=== PATIENT | female | born 1935 | race Caucasian/White ===

== ENCOUNTER 2017-09-15 13:59 | Inpatient (IN) | payer MEDICARE ==
[2017-09-15 16:32] VITALS: BMI 25.5
[2017-09-15] MEDS ORDERED: Senokot 8.6 MG TAB PO PRN (17:20)
[2017-09-15] MEDS ORDERED: Dextrose 5% in Water 1,000 ML IV PRN (17:20)
[2017-09-15] MEDS ORDERED: Insulin Regular 300 UNITS/3 ML VIAL SC PRN (17:20)
[2017-09-15] MEDS ORDERED: Ondansetron ODT 4 MG TAB PO PRN (17:20)
[2017-09-15] MEDS ORDERED: Dextrose 50% Abboject 50 ML SYRINGE SLOW IVP PRN (17:20)
[2017-09-15] MEDS ORDERED: Acetaminophen 325 MG TAB PO PRN (17:20)
[2017-09-15] MEDS ORDERED: Nitroglycerin 0.4 MG TAB (25 Tab Bottle) PO PRN (17:23)
[2017-09-15 17:50] LABS: #Lymphocytes 1.1 thou/uL (1.20-3.40); #Neutrophils 9.4 thou/uL (1.40-6.50); %Eosinophils 0.4 % (0.0-10.0); %Lymphocytes 9.2 % (21.0-51.0); %Monocytes 8.9 % (0.0-10.0); %Neutrophils 81.5 % (42.0-75.0); Mean Corpuscular HGB CONC 32.3 g/dL (32.0-36.0); Mean Corpuscular Hemoglobin 29.2 pg (27.0-31.0); Mean Corpuscular Volume 90.4 fl (81.0-99.0); Mean Platelet Volume 7.4 fL (7.4-10.4); Platelet Count 285 thou/uL (130-400); RBC Distribution Width 13.1 % (11.5-14.5); Red Blood Cell (RBC) Count 3.09 mill/uL (4.20-5.40); White Blood Cell (WBC) Count 11.5 thou/uL (4.8-10.8)
[2017-09-15] MEDS: Sodium Chloride 0.9% 1,000 ML IV SCH (17:50)
[2017-09-15] MEDS: Insulin Regular 300 UNITS/3 ML VIAL SC PRN (17:52)
[2017-09-15 18:01] LABS: INR-International Normal Ratio 1.1; PTT 28.5 SEC (22.9-36.1); Prothrombin Time 14.2 SEC (12.0-14.7)
[2017-09-15] MEDS ORDERED: hydrALAZINE 20 MG/ML VIAL SLOW IVP PRN (18:06)
[2017-09-15] MEDS ORDERED: HYDROcodone/Acetaminophen 5/325 mg Tablet PO PRN (18:06)
--- NOTE | 2017-09-15 18:13 | HP ---
DATE OF ADMISSION: 09/15/2017 PRIMARY CARE PHYSICIAN: Ml Gordon M.D. CODE STATUS: FULL CODE. SURROGATE DECISION-MAKER: Patient makes her own decisions with the help of daughters. CHIEF COMPLAINT AND REASON FOR ADMISSION: The patient is a transfer from [facility] Emergency Room for sepsis, persistent fever with on and off confusion. HISTORY OF PRESENT ILLNESS: The patient is an 82-year-old female with diabetes mellitus type 2, coronary artery disease who presented to [facility] 3 weeks ago with generalized weakness with nausea and diarrhea. Her workup was consistent with gastroenteritis along with Escherichia coli urinary tract infection. She completed the antibiotics. She was then transferred to [facility] [facility] on 08/28/2017. Blood cultures were negative at that time. Influenza screen was negative. At the [facility] [place] [facility], patient developed intermittent confusion that is progressively getting worse. Yesterday, she was confused, more or less the whole day. She also has been having fever especially at night. She has been also complaining of left shoulder pain and back pain. She is currently on Bactrim for left upper extremity cellulitis. No recent cough, shortness of breath, wheezing, nausea, vomiting, or focal neurologic deficits reported. Her CT scan of the brain was done yesterday which was negative for acute findings. CT scan of the chest without contrast showed extensive fibrotic changes throughout the lung, worse in the lung base, most likely chronic in nature without any focal pneumonia. PAST MEDICAL HISTORY: 1. Diabetes mellitus type 2. 2. Coronary artery disease, status post stent placement. 3. Sinus node dysfunction status post pacemaker placement. 4. Hypothyroidism. 5. Hyperlipidemia. 6. Hypertension. 7. Degenerative joint disease. 8. Chronic low back pain. 9. Recurrent falls. 10. Dementia. 11. Chronic pain syndrome. PAST SURGICAL HISTORY: 1. Extensive back surgery in 03/2017 at [facility] [place]. She had surgery from T7 and T11, L1 and L2. She remained in the rehabilitation for a month after the surgery. 2. Thyroidectomy. 3. Hysterectomy. 4. Right knee replacement. 5. Left knee replacement. 6. 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 7. Cholecystectomy. ALLERGIES: Patient is allergic to LEVAQUIN and PENICILLIN. CURRENT HOME MEDICATIONS: Tylenol as needed, aspirin 81 mg daily, Lipitor 10 mg at bedtime, Dulcolax 5 mg at bedtime, carvedilol 12.5 mg b.i.d., vitamin D 5000 units daily, vitamin B12 1000 mcg daily, Aricept 10 mg at bedtime, folic acid 1000 mg at bedtime, Neurontin 100 mg b.i.d., glipizide 2.5 mg daily, Guadalupe 10/325 b.i.d., levothyroxine 125 mcg daily, lisinopril 10 mg daily, melatonin 10 mg at bedtime, Protonix 40 mg daily, MiraLax 17 grams daily, tramadol as needed. SOCIAL HISTORY: The patient is currently at swing bed. She used to ambulate with the help of a walker. She has very good family support. No current use of tobacco, alcohol or drug use. FAMILY HISTORY: Negative for premature coronary artery disease. REVIEW OF SYSTEMS: The following complete review of systems was negative, unless otherwise mentioned in the HPI or below: Constitutional: Weight loss or gain, ability to conduct usual activities. Skin: Rash, itching. Eyes: Double vision, pain. ENT/Mouth: Nose bleeding, neck stiffness, pain, tenderness. Cardiovascular: Palpitations, dyspnea on exertion, orthopnea. Respiratory: Shortness of breath, wheezing, cough, hemoptysis, fever or night sweats. Gastrointestinal: Poor appetite, abdominal pain, heartburn, nausea, vomiting, constipation, or diarrhea. Genitourinary: Urgency, frequency, dysuria, nocturia. Musculoskeletal: Pain, swelling. Neurologic/Psychiatric: Anxiety, depression. Allergy/Immunologic: Skin rash, bleeding tendency. PHYSICAL EXAMINATION: VITAL SIGNS: Temperature 98.5, respiration of 18, pulse rate of 78, blood pressure 150/82, O2 saturation 95% on 2 liter nasal cannula. GENERAL: An 82-year-old female with intermittent confusion. Confusion seems to be better at this time. HEENT: Head is atraumatic, normocephalic, sclerae are anicteric. Moist mucous membranes. No oral lesion. NECK: Supple, no JVD appreciated. No carotid bruit. LUNGS: Clear to auscultation bilaterally. HEART: S1, S2 present. Regular rate and rhythm. No rubs or gallops are appreciated, 2/6 systolic murmur over the mitral area. ABDOMEN: Soft, nontender, bowel sounds present, no rebound, guarding, or costovertebral angle tenderness. EXTREMITIES: No edema or calf tenderness. NEUROLOGIC: Grossly nonfocal, moves all four extremities. PSYCHIATRY: Alert, awake, oriented x3. SKIN: Warm and dry. LYMPH NODES: No palpable lymph nodes in the neck. PERIPHERAL VASCULAR: Radial pulses palpable bilaterally. MUSCULOSKELETAL: No joint swelling or tenderness. LABORATORY DATA AND IMAGING DATA: 1. Labs from today are pending at this time. WBC was 12.8 last week. Repeat WBC yesterday was 7.9. 2. Hemoglobin and hematocrit was 12.3. 3. Sodium was 131, potassium 4.6, chloride 95, bicarbonate 24, BUN 24, creatinine 1.4. Her creatinine baseline is 1.0. Urinalysis last week was negative. Urine culture last week was negative. 4. Telemetry monitoring by my review showed sinus rhythm. CT scan of the brain as discussed above. CT scan of the chest by my review as discussed above. X-ray of the left wrist showed chronic changes. IMPRESSION: 1. Generalized weakness/Toxic metabolic encephalopathy, multifactorial. 2. Persistent fever, especially at night, rule out bacteremia. 3. Chronic pain syndrome, especially in the left shoulder and back. r/o infectious process 4. Left wrist cellulitis, currently on Bactrim. 5. Status post spine surgery in [place]. Patient probably had laminectomy from T7-T11 and L1-L2 per patient report. 6. Coronary artery disease, status post stent placement. 7. Diabetes mellitus type 2. 8. Sinus node dysfunction status post pacemaker. 9. Hypothyroidism. 10. Hypertension. 11. Hyperlipidemia. 12. Degenerative joint disease. 13. Acute kidney injury on chronic kidney disease stage 3. 14. Hyponatremia with sodium of 131. 15. Dementia. 16. Recurrent falls. Patient has probably 6-7 falls in the last 6 months per family report. PLAN: The patient will be monitored in the Stroke Unit. Neurology and Infectious Disease will be consulted. We will repeat blood cultures, urinalysis and urine cultures. Check CRP and electrolytes again. Frequent neuro checks. Gentle intravenous hydration. Insulin sliding scale. Hold antibiotics for now except for Bactrim for left wrist cellulitis. We will also resume other selected home medications. Plan of care was discussed with the patient and the family at the bedside. They stated understanding. MTDD
[2017-09-15 18:23] LABS: ALT (SGPT) 12 U/L (8-55); AST (SGOT) 12 U/L (5-34); Albumin 3.6 g/dL (3.4-4.8); Alkaline Phosphatase 89 U/L (40-150); Anion Gap 15 mmol/L (10-20); BUN (Urea Nitrogen) 21 mg/dL (9.8-20.1); Bilirubin, Total 0.2 mg/dL (0.2-1.2); CK (CPK) 28 U/L (29-168); CRP (Inflammatory) 22.77 mg/dL (= or < 0.5); Calc. Creatinine Clearance 34 mL/min (70-130); Calcium 9.4 mg/dL (7.8-10.44); Carbon Dioxide 20 mmol/L (23-31); Chloride 99 mmol/L (98-107); Estimated GFR-MDRD 35; Globulin 3.6 g/dL (2.4-3.5); Glucose 306 mg/dL (83-110); Magnesium 2.4 mg/dL (1.6-2.6); Phosphorus 2.9 mg/dL (2.3-4.7); Potassium 4.8 mmol/L (3.5-5.1); Protein, Total 7.2 g/dL (6.0-8.3); Sodium 129 mmol/L (136-145)
[2017-09-15 18:26] LABS: CKMB 0.5 ng/mL (0-6.6); Troponin I Less than 0.010 ng/mL (< 0.028)
[2017-09-15 19:53] LABS: Folate (Folic Acid) 39.4 ng/mL (7.0-31.4)
[2017-09-15 20:14] LABS: Bilirubin Negative (Negative); Blood, Urine Negative (Negative); Clarity CLOUDY (Clear); Glucose, Urine (Dipstick) 250 mg/dL (Negative); Leukocyte Negative (Negative); Nitrite Negative (Negative); Protein, Urine (Dipstick) Negative (Neg-Trace); Specific Gravity, Urine 1.021 (1.002-1.036); Urobilinogen 0.2 mg/dL (0.2-1.0); pH, Urine 5.5 (5.0-9.0)
[2017-09-15 20:17] LABS: Bacteria/HPF None Seen HPF (None Seen); Hyaline Casts/LPF 0-3 HYALINE CAST LPF (0-3 Hyaline); Pathc Cast-AUWi Flag 0.94 (0-2.49); RBC/HPF 0-3 HPF (0-3); WBC/HPF None Seen HPF (0-3)
[2017-09-15] MEDS ORDERED: Famotidine 20 MG TAB PO SCH (21:00)
[2017-09-15] MEDS: Donepezil HCl 10 MG TAB PO SCH (21:21)
[2017-09-15] MEDS: Sulfameth/Trimethoprim DS 800-160mg TAB PO SCH (21:21)
[2017-09-15] MEDS: traMADol HCl 50 MG TAB PO PRN (21:21)
[2017-09-15] MEDS: Carvedilol 6.25 MG TAB PO SCH (21:23)
[2017-09-15] MEDS: Gabapentin 100 MG CAP PO SCH (21:24)
[2017-09-15] MEDS: Melatonin 3 MG TAB PO SCH (21:24)
[2017-09-15] MEDS: Atorvastatin Calcium 10 MG TAB PO SCH (21:24)
[2017-09-15] MEDS: Docusate 100 MG CAP PO SCH (21:24)
[2017-09-16] MEDS: Levothyroxine Sodium 125 MCG TAB PO SCH (05:37)
[2017-09-16 06:05] LABS: Anion Gap 12 mmol/L (10-20); BUN (Urea Nitrogen) 29 mg/dL (9.8-20.1); Calc. Creatinine Clearance 34 mL/min (70-130); Calcium 8.8 mg/dL (7.8-10.44); Carbon Dioxide 24 mmol/L (23-31); Chloride 102 mmol/L (98-107); Estimated GFR-MDRD 35; Glucose 182 mg/dL (83-110); Potassium 4.3 mmol/L (3.5-5.1); Sodium 134 mmol/L (136-145)
[2017-09-16] MEDS: Insulin Regular 300 UNITS/3 ML VIAL SC PRN (06:42)
[2017-09-16] MEDS ORDERED: Enoxaparin Sodium 40 MG/0.4 ML SYRINGE SC SCH (09:00)
[2017-09-16] MEDS: Carvedilol 6.25 MG TAB PO SCH ×2 (09:04→20:53)
[2017-09-16] MEDS: Gabapentin 100 MG CAP PO SCH ×2 (09:04→20:52)
[2017-09-16] MEDS: Sulfameth/Trimethoprim DS 800-160mg TAB PO SCH ×2 (09:04→20:53)
[2017-09-16] MEDS: Folic Acid 1 MG TAB PO SCH (09:04)
[2017-09-16] MEDS: Docusate 100 MG CAP PO SCH ×2 (09:04→20:52)
[2017-09-16] MEDS: Aspirin 81 mg Enteric Coated Tablet PO SCH (09:04)
[2017-09-16] MEDS: Cyanocobalamin (Vitamin B-12) 1,000 MCG TAB PO SCH (09:05)
[2017-09-16] MEDS: Polyethylene Glycol 3350 17 GM Packet PO SCH (09:05)
[2017-09-16] MEDS: glipiZIDE 5 MG TAB PO SCH (09:05)
[2017-09-16] MEDS: traMADol HCl 50 MG TAB PO PRN (09:08)
--- NOTE | 2017-09-16 12:03 | ULT ---
BILATERAL LOWER EXTREMITY VENOUS DUPLEX SONOGRAM: History: Bilateral leg pain and edema. FINDINGS: Each common femoral vein and greater saphenous junction were evaluated along with each femoral, deep femoral, popliteal, and posterior tibial vein. There is good color and spectral doppler flow, yessy kole, and augmentation. IMPRESSION: No sonographic evidence of DVT within either lower extremity. POS: MICHI
--- NOTE | 2017-09-16 13:23 | PDOC.PN ---
- Subjective Encounter Start Date: 09/16/17 Encounter Start Time: 12:30 Patient seen and examined. No new complaints. No overnight events. Mentation improving. low back pain + - Objective Resuscitation Status: Resuscitation Status FULL:Full Resuscitation MAR Reviewed: Yes Vital Signs & Weight: Vital Signs (12 hours) Temp Pulse Pulse Pulse Resp BP BP 09/16/17 11:16 98.7 F 75 16 09/16/17 09:25 70 75 133/68 09/16/17 09:04 127/66 09/16/17 08:31 88 72 117/69 09/16/17 08:12 97.8 F 75 20 09/16/17 07:34 97.8 F 75 20 09/16/17 03:41 97.6 F 75 20 BP BP Pulse Ox 09/16/17 11:16 124/72 93 L 09/16/17 09:25 120/60 09/16/17 09:04 09/16/17 08:31 111/59 L 09/16/17 08:12 94 L 09/16/17 07:34 147/74 H 94 L 09/16/17 03:41 110/58 L 95 Weight Weight 159 lb 3.2 oz I&O: 09/15/17 09/16/17 09/17/17 06:59 06:59 06:59 Intake Total 300 Balance 300 Result Diagrams: 09/15/17 17:13 09/16/17 05:10 Additional Labs: Accuchecks 09/16/17 09/16/17 09/15/17 10:43 06:35 21:10 POC Glucose 173 H 160 H 279 H 09/15/17 17:21 POC Glucose 291 H EKG Reviewed by me: Yes (Tele paced) Phys Exam - Physical Examination Constitutional: NAD Respiratory: no wheezing, no rales Scat rhonchi at bases Cardiovascular: RRR, no rub no heaves/pulsations Gastrointestinal: soft, non-tender, no distention, positive bowel sounds Musculoskeletal: no edema Neurological: non-focal, moves all 4 limbs Psychiatric: normal affect, A&O x 3 Dx/Plan - Plan DVT proph w/SCDs IMPRESSION: 1. Generalized weakness/Toxic metabolic encephalopathy, multifactorial. 2. Persistent fever, especially at night, rule out bacteremia. 3. Chronic pain syndrome, especially in the left shoulder and back. r/o infectious process 4. Left wrist cellulitis, currently on Bactrim. 5. Status post spine surgery in [place]. Patient probably had laminectomy from T7-T11 and L1-L2 per patient report. 6. Coronary artery disease, status post stent placement. 7. Diabetes mellitus type 2. 8. Sinus node dysfunction status post pacemaker. 9. Hypothyroidism. 10. Hypertension. 11. Hyperlipidemia. 12. Degenerative joint disease. 13. Acute kidney injury on chronic kidney disease stage 3. 14. Hyponatremia with sodium of 131. 15. Dementia. 16. Recurrent falls. Patient has probably 6-7 falls in the last 6 months per family report. PLAN: * Blood cultures neg * Doppler neg for DVT * C diff nega * Await ID/NSG input * AM labs * Cont IVF at 50 ml/hr due to NEENA * Cont to monitor * Cont Bactrim Review of Systems - Review of Systems Cardiovascular: negative: chest pain, palpitations, orthopnea, paroxysmal nocturnal dyspnea, edema, light headedness Gastrointestinal: negative: Nausea, Vomiting, Abdominal Pain, Diarrhea, Constipation, Melena, Hematochezia - Medications/Allergies Allergies/Adverse Reactions: Allergies Allergy/AdvReac Type Severity Reaction Status Date / Time levofloxacin [From Levaquin] Allergy Rash Verified 08/28/17 13:21 Penicillins Allergy Rash Verified 08/28/17 13:21 Medications: Current Medications Acetaminophen (Tylenol) 650 mg PO Q4H PRN PRN Reason: Headache/Fever or Pain Hydrocodone Bitart/Acetaminophen (Hoople 10/325) 1 tab PO Q6H PRN PRN Reason: Moderate Pain (4-6) Aspirin (Ecotrin) 81 mg PO DAILY [facility] Last Admin: 09/16/17 09:04 Dose: 81 mg Atorvastatin Calcium (Lipitor) 10 mg PO HS [facility] Last Admin: 09/15/17 21:24 Dose: 10 mg Carvedilol (Coreg) 12.5 mg PO BID [facility] Last Admin: 09/16/17 09:04 Dose: 12.5 mg Cyanocobalamin (Vitamin B-12) 1,000 mcg PO DAILY [facility] Last Admin: 09/16/17 09:05 Dose: 1,000 mcg Dextrose/Water (Dextrose 50%) 25 gm SLOW IVP PRN PRN PRN Reason: Hypoglycemia Docusate Sodium (Colace) 100 mg PO BID [facility] Last Admin: 09/16/17 09:04 Dose: 100 mg Donepezil HCl (Aricept) 10 mg PO [facility] Last Admin: 09/15/17 21:21 Dose: 10 mg Enoxaparin Sodium (Lovenox) 30 mg SC 0900 [facility] Folic Acid (Folvite) 1 mg PO DAILY [facility] Last Admin: 09/16/17 09:04 Dose: 1 mg Gabapentin (Neurontin) 100 mg PO BID [facility] Last Admin: 09/16/17 09:04 Dose: 100 mg Glipizide (Glucotrol) 2.5 mg PO DAILY [facility] Last Admin: 09/16/17 09:05 Dose: 2.5 mg Glucagon (Glucagon) 1 mg IM PRN PRN PRN Reason: Hypoglycemia Hydralazine HCl (Apresoline) 10 mg SLOW IVP Q4H PRN PRN Reason: SBP Greater Than 180 Dextrose/Water (D5w) 1,000 mls @ 0 mls/hr IV .Q0M PRN; As Directed PRN Reason: Hypoglycemia Sodium Chloride (Normal Saline 0.9%) 1,000 mls @ 50 mls/hr IV .Q20H [facility] Last Admin: 09/15/17 17:50 Dose: 1,000 mls Insulin Human Regular (Humulin R) 0 units SC .MILD SLIDING SCALE PRN PRN Reason: Mild Correctional Scale Last Admin: 09/16/17 06:42 Dose: 2 unit Insulin Human Regular (Humulin R) 0 units SC .BEDTIME SLIDING SC PRN PRN Reason: Bedtime Correctional Scale Last Admin: 09/15/17 23:04 Dose: 3 unit Levothyroxine Sodium (Synthroid) 125 mcg PO 0600 [facility] Last Admin: 09/16/17 05:37 Dose: 125 mcg Melatonin (Melatonin) 9 mg PO [facility] Last Admin: 09/15/17 21:24 Dose: 9 mg Miscellaneous Medication (Pharmacy To Dose) 1 each PO ONE PRN PRN Reason: Pharmacy to dose Stop: 10/15/17 17:30 Nitroglycerin (Nitrostat) 0.4 mg PO Q5MIN PRN PRN Reason: Chest Pain Ondansetron HCl (Zofran Odt) 4 mg PO Q6H PRN PRN Reason: Nausea/Vomiting Pantoprazole Sodium (Protonix) 40 mg PO 2100 [facility] Polyethylene Glycol (Miralax) 17 gm PO DAILY [facility] Last Admin: 09/16/17 09:05 Dose: Not Given Senna (Senokot) 2 tab PO HSPRN PRN PRN Reason: Constipation Tramadol HCl (Ultram) 50 mg PO QID PRN PRN Reason: Pain Last Admin: 09/16/17 09:08 Dose: 50 mg Trimethoprim/Sulfamethoxazole (Bactrim Ds) 1 tab PO BID [facility] Last Admin: 09/16/17 09:04 Dose: 1 tab
[2017-09-16] MEDS: Sodium Chloride 0.9% 1,000 ML IV SCH (19:08)
--- NOTE | 2017-09-16 20:36 | CT ---
NONCONTRAST CT LUMBAR SPINE 09/16/17 HISTORY: Mid as well as low back pain. Bilateral lower extremity weakness and frequent falls. COMPARISON: Not available. TECHNIQUE: Contiguous axial CT images are obtained from the T10-11 level to the upper sacrum. Sagittal and coron al reformat images are provided. FINDINGS: There are increased linear densities at each lung base incompletely imaged but probably related to ch ronic lung changes better visualized on CT thorax on 09/14/17. Vascular calcifications are seen in the abdominal aorta and involving the iliac arteries. There is bi lateral sacroiliac joint osteoarthritis. Postsurgical changes of the thoracolumbar spine are noted. Laminectomy defects are present at the vis ualized T10-11 level, L1-2 level, L2-3, L3-4, and L4-5 levels. Vacuum phenomenon is seen at all levels of the lower thoracic and lumbar spine with narrowing of the intervertebral disc spaces at all levels. Multilevel posterior osteophyte formation as well as facet hypertrophic changes are present. T10-11 level: There is moderate right with mild to moderate left sided neural foraminal narrowing vinny sophie related to the uncinate process hypertrophy and facet degenerative changes. Soft tissue densit ies seen posterior to the central spinal canal at this level likely related to scarring from prior s urgery. T11-12 level: There is mild right sided neural foraminal narrowing due to bony encroachment. The left neural foramen is patent. There is mild effacement of the ventral subarachnoid space due to a mild d isc osteophyte complex. T12-L1 level: There is severe right and moderate left sided neural foraminal narrowing, again related to bony encroachment, primarily the posterior osteophyte formation and facet hypertrophic changes. T his also results in moderate narrowing of the central spinal canal at this level. L1-2 level: There is prominent posterior osteophyte formation with facet hypertrophic change. There i s severe right and moderate left sided neural foraminal narrowing. Soft tissue density abuts the thec al sac at this level posteriorly and the thecal sac is not well delineated on this exam. This soft ti ssue density is most likely attributable to scarring. No obvious fluid collection is seen on nonenhan archie CT scan exam. L2-3 level: There is severe facet hypertrophic changes with prominent posterior osteophyte formation. Findings result in severe narrowing of the central spinal canal at this level. There is mild to mode rate right and moderate left sided neural foraminal narrowing due to bony encroachment. Soft tissue d ensity is seen posterior to the thecal sac at this level likely related to scarring in the soft tissu es. L3-4 level: There is facet hypertrophic changes with prominent posterior osteophyte formation. There is a laminectomy defect at this level, but there is at least mild narrowing of the central spinal can al with narrowing of the lateral recesses at this level. There is severe left and moderate to severe right sided neural foraminal narrowing again related to prominent facet hypertrophic changes as well as left lateral and posterior osteophyte formation at this level. L4-5 level: There is severe right sided facet hypertrophic changes. There is a punctate focus of gas seen within the right neural foramen at this level, probably related to either a gas within a tiny se questered disc fragment. There is severe right and very severe left sided neural foraminal narrowing. Here is soft tissue density seen posterior to the L4-5 level and posterior to the L5 vertebral body in the midline may represent disc material, but this cannot be further evaluated on CT evaluation. Ce ntral spinal canal is patent at this level with mild effacement of the anterior aspect of the thecal sac. There is a calcific density seen at the posterior aspect of the thecal sac at the level of the L4 susie tebral body. Atrophy of the musculature posterior to the L3-4 and L4-5 levels is present. L5-S1 level: There are facet hypertrophic changes and posterior osteophyte formation. This results in severe bilateral neural foraminal narrowing. There is encroachment on the traversing bilateral S1 ne rve roots at this level. Thecal sac does appear patent. IMPRESSION: 1. Extensive multilevel degenerative changes. Postsurgical changes are seen at multiple levels r elated to laminectomy defects. 2. Multilevel moderate and severe degrees of neural foraminal narrowing, primarily related to dioni ny encroachment. There is soft tissue density seen in the midline posterior to the L4-5 level and pos terior to the L5 vertebral body which could potentially represent disc material. 3. No fracture or subluxation involving the lumbar spine. There is mild right convex scoliosis o f the lumbar spine. POS: MISTY
[2017-09-16] MEDS: Melatonin 3 MG TAB PO SCH (20:52)
[2017-09-16] MEDS: Atorvastatin Calcium 10 MG TAB PO SCH (20:52)
[2017-09-16] MEDS: Donepezil HCl 10 MG TAB PO SCH (20:52)
[2017-09-16] MEDS: Pantoprazole 40 MG GRANULES PACKET PO SCH (20:53)
[2017-09-16] MEDS: HYDROcodone/Acetaminophen 10/325 mg Tablet PO PRN (20:53)
--- NOTE | 2017-09-16 20:54 | CT ---
NONCONTRAST CT THORACIC SPINE 09/16/17 HISTORY: Bilateral lower extremity weakness and frequent falls. FINDINGS: Increased interstitial densities in the lungs bilaterally also seen on CT thorax of 09/14/17 and likel y related to chronic interstitial fibrotic lung changes. Vascular calcifications are seen in the thor acic and visualized abdominal aorta. A dual lead left subclavian cardiac pacemaking device is noted i n place. Small hiatal hernia is identified. There are postsurgical changes of the thoracic spine related to laminectomy defects extending from th e T7-8 to the T10-11 level. There are prominent degenerative changes seen in the thoracic spine exten ding from the T5-6 to the T12-L1 level. There is slight anterolisthesis of C6 on C7. There are prominent facet degenerative changes at this l evel likely accounting for this finding. Vertebral body heights of the thoracic spine are within norm al limits and there is no evidence of a subluxation. Multilevel end plate degenerative changes are seen with loss of intervertebral disc height at multipl e levels of the mid and lower thoracic spine. The central spinal canal and neural foramina appear patent at the T1-2, L2-3, T3-4, and T4-5 levels. T5-6 level: Central spinal canal and neural foramina are patent, but there are prominent end plate de generative changes. T6-7 level: There may be partial fusion at this level. There is prominent posterior osteophyte format ion which does result in narrowing of the central spinal canal due to the posterior osteophyte format ion. Right neural foramen is patent, but there is at least mild narrowing of the left neural foramen . T7-8 level: There is prominent posterior osteophyte formation which does efface the ventral subarachn oid space at this level. There is moderate bilateral neural foraminal due to bony encroachment. T8-9 level: There is prominent posterior osteophyte formation which does efface the ventral subarachn oid space. There is soft tissue density posterior to the central spinal canal likely related to scarr ing. Laminectomy defect is present at this level. There is severe bilateral neural foraminal narrowin g. T9-10 level: There is prominent posterior osteophyte formation with soft tissue density seen posterio r to the central spinal canal likely related to scarring. The delineation of the area of presumed sca r tissue in central spinal are difficult to delineate, but there does appear to be moderate to severe narrowing of the central spinal canal. There is severe right and moderate left sided neural foramina l narrowing. T10-11 level: There is posterior osteophyte formation and facet degenerative changes. Findings result in mild left and severe right sided neural foraminal narrowing. Again, soft tissue density seen post erior to thecal sac probably related to scarring. T11-12 level: There is facet degenerative changes on the right with posterior osteophyte formation as well as uncinate process hypertrophy. There is severe right sided neural foraminal narrowing. The le ft neural foramen at this level does appear patent. Vacuum phenomenon is seen in the intervertebral d isc. There is mild effacement of the ventral subarachnoid space. T12-L1 level: There is prominent posterior osteophyte formation and facet hypertrophic changes. The f indings result in severe bilateral neural foraminal narrowing, and there is also moderate narrowing o f the central spinal canal at this level. IMPRESSION: 1. Multilevel degenerative changes seen in the mid and lower thoracic spine as described above. Postsurgical changes also involve the lower thoracic as well as the visualized upper lumbar spine. 2. Slight anterolisthesis of C6 on C7 likely due to the facet degenerative changes. 3. Chronic interstitial lung changes. 4. Prominent vascular calcifications. 5. Hiatal hernia. POS: [facility]
--- NOTE | 2017-09-16 21:02 | CON ---
DATE OF CONSULTATION: 09/16/2017 REASON FOR CONSULTATION: Weakness, concern of possible UTI, some respiratory symptoms, a recent episode of inflammatory change in left upper extremity. HISTORY OF PRESENT ILLNESS: An 82-year-old with a history of type 2 diabetes and coronary artery disease prior with pacemaker placement as well as extensive thoracic and lumbar spine fusion with instrumentation done in [place] in 03/2017 , who has suffered from worsening functional capacity for the past few weeks. Some respiratory symptoms earlier with some low-grade temperature elevation intermittently reported. The patient was admitted to [facility], had urinary tract infection secondary to Escherichia coli diagnosed on 08/25/2017, at that time, the patient's urinalysis showed 0-3 wbc's, so most likely this actually represented colonization without actual invasive infection. The patient continued to have problems with mobility and stability, some back pain which she rates at 7/10 along the lower lumbosacral spine area but not the thoracic spine. The pain has pretty much been steady since the surgery or even before that. No headaches, no visual symptoms, sore throat, odynophagia, dysphagia. Respiratory symptoms have improved. She does have some cough intermittently, though still no chest pain, some dyspnea. The left upper extremity inflammatory process has improved markedly. No other joint symptoms or other skin disorder. No neurological symptoms outside the reported confusional states which are intermittent. According to her daughter, some days , she is doing very well. Other days, she has no ability to ambulate or she does not eat very much. 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 She has a history of pulmonary nodule which was evaluated with thoracotomy and biopsy, which showed benign findings in [place] many years ago. She has had a previous lumbar laminectomy and a recent lumbar and thoracic spine fusion done in [place] with quite extensive instrumentation. There is a history of cholecystectomy, hysterectomy , and thyroidectomy. SOCIAL HISTORY: Never smoker. FAMILY HISTORY: Noncontributory. ALLERGIES: PENICILLIN with a rash. CURRENT MEDICATIONS: Tylenol, [place], Ecotrin, Lipitor, Coreg, dextrose, Colace , Aricept, Lovenox, Folvite, Neurontin, Glucotrol, Apresoline, Humulin, Synthroid, Nitrostat, Protonix, Senokot, and Bactrim. PHYSICAL EXAMINATION: VITAL SIGNS: T-max 98.5, blood pressure 140/76, pulse 79, respirations 16-20, O2 sat 94%. SKIN: Remarkable for pretty much extensive onycholysis with erythema in the periungual location in all toenails. This has been present for many months, if not, more than a year. The patient was not able to precisely estimate how long this has been present. She has taken various antifungal treatments for it with no effect. She has a bruising of the dorsal aspect of the left hand. The previously described erythema in the left forearm has resolved. No lymphadenopathy. HEENT: Ocular movements are conjugate. Oral cavity still with upper dentures, the lower teeth are in place and quite a bit of decay as expected, some gum disease. NECK: Supple, no jugular venous distention. LUNGS: With symmetric air entry with faint crackles at the bases. HEART: S1, S2, regular rate. Pacer pocket site not inflamed. ABDOMEN: Soft, nondistended, nontender. No bladder distention, no ascites. EXTREMITIES: No joint inflammatory activity. Pulses are 1+ in dorsalis pedis. NEUROLOGIC: Plantar responses are flexure. She is able to move extremities on command. She is awake, recognizes her daughter. She is quite alert right now. If she has cognitive impairment, it is quite mild at this time, may have mostly memory impairment. LABORATORY DATA: Urinalysis with no wbc's. White cell count 11.5, hemoglobin 9 , platelets 285 with 81% neutrophils. INR 1.1. Creatinine 1.43, a little bit higher than her baseline of 1.0. Liver profile is normal. CK was 28. CRP was a little bit elevated at 22, albumin 3.6. Folate 39. O2 sats were 93. ASSESSMENT: 1. Ischemic cardiomyopathy with a pacemaker. 2. Chronic onycholysis with periungual inflammation, possible psoriasis that has not yet been diagnosed. 3. Chronic arthropathy in multiple joints with particular involvement of the lower back, status post recent fusion in March of last year. 4. Chronic low back pain which has not changed in character and intensity since the surgery. 5. Urinary tract findings which most likely represent colonization rather than an invasive urinary tract infection and do not narrate the treatments. 6. Pulmonary fibrosis, this appears to be a new diagnosis but is most likely has been there for many years. She does have borderline oxygenation and may have significant hypoxemia on effort. DISCUSSION: The intensity of back pain is not to the extent of one would be suspicious of an inflammatory process at the back area and it has been pretty much steady mostly localized to the lower back area since the surgery in Mar 2017. In view of the possibility of psoriasis, one should consider the diagnosis of psoriatic arthritis which can affect the lower back area and the sacroiliac joints. This can be associated with the elevated C-reactive protein. Imaging of the spine cannot be performed because of the pacemaker although more recent studies demonstrate that it is for the most part safe to perform MRI in pts with pacemakers and AICDs with a few precautions. Particularly, a CT without contrast can be done, but the information probably would not be to the extent that would be helpful. I do not have a high index of suspicion for an infection of the back. If the concern persists, then we will have to wait for the creatinine to improve. One could also check with her pacemaker company to see if she would be amenable for reprogramming after an MRI since more recently MRI protocols have been somewhat liberalized in relationship to pacemakers. Again, discontinue antimicrobial therapy. Consider the possibility of psoriasis and psoriatic arthritis and change in mental status could be in part be related to gas exchange problems associated with her pulmonary fibrosis, in other words, a multifactorial problem. LULA
--- NOTE | 2017-09-16 21:57 | CON ---
DATE OF CONSULTATION: 09/16/2017 This is a 30-minute initial patient evaluation, which greater than 50% of the exam was spent in couns eling and coordinating the patient's care. The remainder of the exam was spent in review of the [facility] ent's medical records and appropriate imaging studies. CHIEF COMPLAINT: Low back pain with altered mental status. HISTORY OF PRESENT ILLNESS: Ms. Carrillo is a pleasant 82-year-old female who was transferred from [facility] rehabilitation regard to altered mental status and a baseline dementia and back pain. The [facility] has a history of CAD, diabetes, and other comorbidities. She apparently underwent a thoracolumba r fusion with a neurosurgeon in [place] in 03/2017. Apparently, the patient was supposed to follow up with the surgeon multiple times; however, her appointments were rescheduled by his office and she wa s never able to follow up with him. The patient also has a history of UTIs and currently being treat ed for one. She states she has dealt with chronic low back pain which was not improved per her surge ry. She also states she did not have leg pain, only back pain and that was the reason for the large fusion. She does complain of bilateral knee pain and these have been replaced multiple times. The santi elliott's daughter helps to provide the medical history as well. Neurosurgery is asked to consult reg arding the patient's previous history of surgery. PHYSICAL EXAMINATION: The patient is awake, alert, and appropriate. She is currently oriented to pe rson, place, and time. She is able to answer questions appropriately. She follows commands in all 4 extremities. Her pupils are equal, round, and reactive bilaterally. She has full strength in the b ilateral upper and bilateral lower extremities. Gait was not tested, although the patient was able t o walk to the bathroom a few hours ago according to the daughter. She does use a walker at home. He r posterior thoracolumbar incision is well healed with no signs of dehiscence, swelling, or drainage. IMPRESSION/DIAGNOSES: 1. Altered mental status with underlying dementia. 2. History of thoracolumbar fusion in 03/2017 with a surgeon in [place]. PLAN: I discussed the patient's case with Dr. Mina as well as Dr. Cantrell and Dr. Sandhu. At this ti me, there was a concern for perhaps infection, although Dr. Sandhu does not believe that this is the c ase at this time. The patient does appear to be improving overall and states that her back pain is a t baseline. We will order CT scans of the thoracic and lumbar spines to evaluate the patient's hardw are. Ideally, we would get an MRI or a CT with and without contrast; however, the patient has a pace maker which prevents her from getting an MRI and has decreased kidney function which does not allow f or contrast dye. Therefore, we will await for the results of the CT scans; however, it is highly lik silvina that any Neurosurgery intervention will be required. We will follow back on the patient's studie s. Please call with any changes in the patient's neurologic status or questions patient's exam. It should be noted that the patient was seen and examined at 12:45 p.m. today and this is a late dictati on.
--- NOTE | 2017-09-17 02:01 | CON ---
DATE OF CONSULTATION: 09/16/2017 REASON FOR CONSULTATION: Encephalopathy. REFERRING PROVIDER: Angel Cantrell M.D. HISTORY OF PRESENT ILLNESS: Ms. Hinson is a pleasant 82-year-old female who has been cons ulted for evaluation of altered mental status. History is obtained from the patient's medical chart and the patient's daughter who was present at the bedside. According to daughter, the patient has be en admitted to an outside hospital after she was found to have a low-grade fever. She had been in sw ing bed and has been treated with antibiotics and she was continued to have a fever of 100-101 on a d aily basis. She was being transferred over to the [facility] for further evaluation. Francis estes reports that over the past few months, she has been having increasing difficulty with her gait an d balance. She has had multiple falls during that time. She was, in fact, has fallen on 03/2017 and was taken to outside hospital where she ended up having thoracolumbar spine surgery done. She says that since then, she is having increasing episodes where she falls to the floor without any apparent reason. The patient states that she is having difficulty where when she stands up, her knees buckle under her and she falls down. She denies having any numbness or tingling sensation in her upper and lower extremities. She denies changes in her bowel or bladder function. Daughter reports that she d oes have dementia and has noted increasing episodes of confusion that comes and goes over the past fe w days. PAST MEDICAL HISTORY: Significant for hypertension, diabetes, coronary artery disease, sinus node dy sfunction with pacemaker placement, hypothyroidism, hyperlipidemia, degenerative joint disease, chron ic low back pain, dementia. PAST SURGICAL HISTORY: Significant for extensive back surgery in 03/2017, thyroidectomy, hysterectom y, right knee replacement, left knee replacement, right lung thoracotomy, and cholecystectomy. CURRENT MEDICATIONS: Please review MAR. ALLERGIES: Include LEVAQUIN and PENICILLIN. SOCIAL HISTORY: She denies smoking, alcohol use, or illicit drug use. FAMILY HISTORY: Noncontributory. REVIEW OF SYSTEMS: As mentioned in the HPI, otherwise negative. PHYSICAL EXAMINATION: VITAL SIGNS: Blood pressure of 118/57, pulse of 67, temperature of 98.4, respirations of 20, O2 sats of 97% on room air. GENERAL: Well-developed, well-nourished female, in no apparent distress. RESPIRATORY: Clear to auscultation bilaterally. CARDIOVASCULAR: Regular rate and rhythm. NEUROLOGIC: Mental status: The patient is awake, alert, oriented x3. Speech and language: Fluent speech. Cranial nerves: Pupils are 3 mm and reactive. Visual marcum are intact. Extraocular muscl es are intact. No nystagmus is noted. Face is symmetric. Tongue and uvula are midline. Motor exam showed normal tone and bulk with 5/5 strength in both upper and lower extremities. Sensory: Sensat ion is intact and symmetric. Babinski: Plantar responses flexion bilaterally. Coordination: Intac t to [id number] tapping bilaterally. LABORATORY DATA: Reviewed, which included CBC, CMP, C-reactive protein, B12, folate, troponin, CPK, and urinalysis, which is significant for WBC of 11.5, hemoglobin of 9.0 with hematocrit of 27.9, BUN of 21, creatinine of 1.42, glucose of 306, C-reactive protein of 22.7, otherwise unremarkable. IMAGING STUDIES: CT head without contrast was reviewed, which showed no acute intracranial abnormali ty. IMPRESSION: 1. Altered mental status, likely toxic metabolic encephalopathy. 2. Recurrent falls. Ms. Hinson is a pleasant 82-year-old female who presented with a 3-week history of intermi ttent episodes of fever that are of unknown etiology as well as confusion and recurrent falls. Her c onfusion is likely secondary to toxic metabolic encephalopathy. She may have underlying dementia whi ch has exacerbated with her underlying medical issues. If she continues to have recurrent fever with out any known etiology, then lumbar puncture is recommended to rule out [employer] involvement. Her episode s of frequent falls are likely secondary to her underlying degenerative joint disease in her knees as well as degenerative spine disease and recent spine surgery. I will recommend obtaining CT thoracic and lumbar spine without contrast. We will follow up the recommendations of neurosurgeon as well as further recommendations. Thank you for your consultation.
[2017-09-17] MEDS: HYDROcodone/Acetaminophen 10/325 mg Tablet PO PRN ×2 (04:20→22:05)
[2017-09-17] MEDS: Levothyroxine Sodium 125 MCG TAB PO SCH (05:26)
[2017-09-17 05:48] LABS: #Eosinphils 0.6 thou/uL (0.0-0.7); #Lymphocytes 1.6 thou/uL (1.20-3.40); #Monocytes 0.5 thou/uL (0.11-0.59); #Neutrophils 3.3 thou/uL (1.40-6.50); %Basophils 0.6 % (0.0-1.0); %Eosinophils 9.4 % (0.0-10.0); %Monocytes 8.6 % (0.0-10.0); %Neutrophils 54.4 % (42.0-75.0); Hemoglobin 10.7 g/dL (12.0-16.0); Mean Corpuscular HGB CONC 31.3 g/dL (32.0-36.0); Mean Corpuscular Hemoglobin 28.3 pg (27.0-31.0); Mean Corpuscular Volume 90.4 fl (81.0-99.0); Mean Platelet Volume 7.3 fL (7.4-10.4); Platelet Count 264 thou/uL (130-400); RBC Distribution Width 13.2 % (11.5-14.5)
[2017-09-17 06:03] LABS: Anion Gap 14 mmol/L (10-20); BUN (Urea Nitrogen) 27 mg/dL (9.8-20.1); Calc. Creatinine Clearance 38 mL/min (70-130); Calcium 9.3 mg/dL (7.8-10.44); Carbon Dioxide 24 mmol/L (23-31); Chloride 104 mmol/L (98-107); Estimated GFR-MDRD 41; Glucose 113 mg/dL (83-110); Potassium 4.5 mmol/L (3.5-5.1); Sodium 137 mmol/L (136-145)
[2017-09-17] MEDS: Sodium Chloride 0.9% 1,000 ML IV SCH (08:13)
[2017-09-17] MEDS: Carvedilol 6.25 MG TAB PO SCH ×2 (10:53→21:22)
[2017-09-17] MEDS: Aspirin 81 mg Enteric Coated Tablet PO SCH (10:53)
[2017-09-17] MEDS: glipiZIDE 5 MG TAB PO SCH (10:54)
[2017-09-17] MEDS: Gabapentin 100 MG CAP PO SCH ×2 (10:55→21:23)
[2017-09-17] MEDS: Folic Acid 1 MG TAB PO SCH (10:55)
[2017-09-17] MEDS: Docusate 100 MG CAP PO SCH ×2 (10:56→21:23)
[2017-09-17] MEDS: Cyanocobalamin (Vitamin B-12) 1,000 MCG TAB PO SCH (10:56)
[2017-09-17] MEDS: Polyethylene Glycol 3350 17 GM Packet PO SCH (10:56)
[2017-09-17] MEDS: Sulfameth/Trimethoprim DS 800-160mg TAB PO SCH ×2 (10:57→21:23)
--- NOTE | 2017-09-17 13:48 | PRG ---
DATE OF SERVICE: 09/17/2017 This is a 30 minute initial hospital visit note in which 30 minutes were spent in review of the imagi ng record, evaluation and examination of the patient, and formulation of a plan. Greater than 50% of the time was spent in counseling. CHIEF COMPLAINT: Concern of confusion and weakness following with 03/2017 thoracolumbar laminectomy. HISTORY OF PRESENT ILLNESS: Ms. Rivas is a very pleasant 82-year-old woman, I am seeing in the comp any of my team and of the family. She [facility] She then went to rehabilitation. She evidently was confused and has had recu rrent urinary tract infections and was admitted to our hospital. This morning her and her family sta te she is much more lucid and feels actually as if she is doing quite well. She has already been wor aguilar with physical therapy, ambulating and appears to be doing very well on my evaluation. PHYSICAL EXAMINATION: On exam, she is alert, appropriate. She has really good strength throughout h er multiple myotomes in the lower extremities. I can detect no clear deficits. She moves with vigor and has a well healed thoracolumbar wound. IMPRESSION AND PLAN: I have reviewed her thoracic and lumbar CT; it demonstrates multilevel laminect omies with significant spondylitic changes. She evidently is being treated for urinary tract infecti on and I suspect that was the cause of her confusion. There is no role for neurosurgical interventio n here. Frankly, I think the patient is doing very well. She may follow up with her surgeon who did her operation as that surgeon deems appropriate. This is a 30-minute initial hospital visit note in which 30 minutes were spent in reviewing the imagi ng record, evaluation, examination of the patient, and formulation of plan. Greater than 50% was spe nt in counseling. DIAGNOSES: 1. Confusion. 2. History of thoracolumbar laminectomy.
[2017-09-17] MEDS: Enoxaparin Sodium 30 MG/0.3 ML SYRINGE SC SCH (17:37)
[2017-09-17] MEDS: Insulin Regular 300 UNITS/3 ML VIAL SC PRN (18:49)
--- NOTE | 2017-09-17 19:11 | PDOC.PN ---
- Subjective Encounter Start Date: 09/17/17 Encounter Start Time: 18:30 Patient seen and examined. No new complaints. No overnight events. No new confusion. No new focal deficits. - Objective Resuscitation Status: Resuscitation Status FULL:Full Resuscitation MAR Reviewed: Yes Vital Signs & Weight: Vital Signs (12 hours) Temp Pulse Resp BP BP Pulse Ox 09/17/17 16:00 98.5 F 78 18 113/55 L 95 09/17/17 12:00 98.4 F 73 16 115/56 L 97 09/17/17 10:53 131/73 09/17/17 08:00 98.4 F 73 16 131/73 97 Weight Weight 156 lb 6.4 oz I&O: 09/16/17 09/17/17 09/18/17 06:59 06:59 06:59 Intake Total 523 321 1940 Output Total 300 Balance 300 250 700 Result Diagrams: 09/18/17 05:35 09/18/17 05:35 Additional Labs: Accuchecks 09/17/17 09/17/17 09/17/17 16:55 10:40 05:29 POC Glucose 188 H 217 H 110 09/16/17 22:28 POC Glucose 203 H EKG Reviewed by me: Yes (Tele paced) Phys Exam - Physical Examination Constitutional: NAD Respiratory: no wheezing, no rhonchi Cardiovascular: RRR, no rub Gastrointestinal: soft, non-tender, positive bowel sounds Musculoskeletal: no edema Neurological: moves all 4 limbs Dx/Plan - Plan DVT proph w/SCDs IMPRESSION: 1. Generalized weakness/Toxic metabolic encephalopathy, multifactorial. 2. Persistent fever, especially at night, rule out bacteremia. 3. Chronic pain syndrome, especially in the left shoulder and back. r/o infectious process 4. Left wrist cellulitis, currently on Bactrim. 5. Status post spine surgery in [place]. Patient probably had laminectomy from T7-T11 and L1-L2 per patient report. 6. Coronary artery disease, status post stent placement. 7. Diabetes mellitus type 2. 8. Sinus node dysfunction status post pacemaker. 9. Hypothyroidism. 10. Hypertension. 11. Hyperlipidemia. 12. Degenerative joint disease. 13. Acute kidney injury on chronic kidney disease stage 3. 14. Hyponatremia with sodium of 131. 15. Dementia. 16. Recurrent falls. Patient has probably 6-7 falls in the last 6 months per family report. PLAN: * Cultures neg * ID/NSG input appreciated * Cont to monitor * Cont Bactrim * Monitor overnight - if no issues then possible DC in AM Review of Systems - Review of Systems Cardiovascular: negative: chest pain, palpitations, orthopnea, paroxysmal nocturnal dyspnea, edema, light headedness, other Gastrointestinal: negative: Nausea, Vomiting, Abdominal Pain, Diarrhea, Constipation, Melena, Hematochezia - Medications/Allergies Allergies/Adverse Reactions: Allergies Allergy/AdvReac Type Severity Reaction Status Date / Time levofloxacin [From Levaquin] Allergy Rash Verified 08/28/17 13:21 Penicillins Allergy Rash Verified 08/28/17 13:21 Medications: Current Medications Acetaminophen (Tylenol) 650 mg PO Q4H PRN PRN Reason: Headache/Fever or Pain Hydrocodone Bitart/Acetaminophen ([place] 10/325) 1 tab PO Q6H PRN PRN Reason: Moderate Pain (4-6) Last Admin: 09/17/17 04:20 Dose: 1 tab Aspirin (Ecotrin) 81 mg PO DAILY [facility] Last Admin: 09/17/17 10:53 Dose: 81 mg Atorvastatin Calcium (Lipitor) 10 mg PO HS [facility] Last Admin: 09/16/17 20:52 Dose: 10 mg Carvedilol (Coreg) 12.5 mg PO BID [facility] Last Admin: 09/17/17 10:53 Dose: 12.5 mg Cyanocobalamin (Vitamin B-12) 1,000 mcg PO DAILY [facility] Last Admin: 09/17/17 10:56 Dose: 1,000 mcg Dextrose/Water (Dextrose 50%) 25 gm SLOW IVP PRN PRN PRN Reason: Hypoglycemia Docusate Sodium (Colace) 100 mg PO BID [facility] Last Admin: 09/17/17 10:56 Dose: 100 mg Donepezil HCl (Aricept) 10 mg PO HS [facility] Last Admin: 09/16/17 20:52 Dose: 10 mg Enoxaparin Sodium (Lovenox) 30 mg SC 0900 [facility] Last Admin: 09/17/17 17:37 Dose: 30 mg Folic Acid (Folvite) 1 mg PO DAILY [facility] Last Admin: 09/17/17 10:55 Dose: 1 mg Gabapentin (Neurontin) 100 mg PO BID [facility] Last Admin: 09/17/17 10:55 Dose: 100 mg Glipizide (Glucotrol) 2.5 mg PO DAILY [facility] Last Admin: 09/17/17 10:54 Dose: 2.5 mg Glucagon (Glucagon) 1 mg IM PRN PRN PRN Reason: Hypoglycemia Hydralazine HCl (Apresoline) 10 mg SLOW IVP Q4H PRN PRN Reason: SBP Greater Than 180 Dextrose/Water (D5w) 1,000 mls @ 0 mls/hr IV .Q0M PRN; As Directed PRN Reason: Hypoglycemia Sodium Chloride (Normal Saline 0.9%) 1,000 mls @ 50 mls/hr IV .Q20H [facility] Last Admin: 09/17/17 08:13 Dose: Not Given Insulin Human Regular (Humulin R) 0 units SC .MILD SLIDING SCALE PRN PRN Reason: Mild Correctional Scale Last Admin: 09/17/17 18:49 Dose: 2 unit Insulin Human Regular (Humulin R) 0 units SC .BEDTIME SLIDING SC PRN PRN Reason: Bedtime Correctional Scale Last Admin: 09/15/17 23:04 Dose: 3 unit Levothyroxine Sodium (Synthroid) 125 mcg PO 0600 [facility] Last Admin: 09/17/17 05:26 Dose: 125 mcg Melatonin (Melatonin) 9 mg PO HS [facility] Last Admin: 09/16/17 20:52 Dose: 9 mg Miscellaneous Medication (Pharmacy To Dose) 1 each PO ONE PRN PRN Reason: Pharmacy to dose Stop: 10/15/17 17:30 Nitroglycerin (Nitrostat) 0.4 mg PO Q5MIN PRN PRN Reason: Chest Pain Ondansetron HCl (Zofran Odt) 4 mg PO Q6H PRN PRN Reason: Nausea/Vomiting Pantoprazole Sodium (Protonix) 40 mg PO 2100 [facility] Last Admin: 09/16/17 20:53 Dose: 40 mg Polyethylene Glycol (Miralax) 17 gm PO DAILY [facility] Last Admin: 09/17/17 10:56 Dose: 17 gm Senna (Senokot) 2 tab PO HSPRN PRN PRN Reason: Constipation Tramadol HCl (Ultram) 50 mg PO QID PRN PRN Reason: Pain Last Admin: 09/16/17 09:08 Dose: 50 mg Trimethoprim/Sulfamethoxazole (Bactrim Ds) 1 tab PO BID [facility] Last Admin: 09/17/17 10:57 Dose: 1 tab
[2017-09-17] MEDS: Donepezil HCl 10 MG TAB PO SCH (21:21)
[2017-09-17] MEDS: Melatonin 3 MG TAB PO SCH (21:22)
[2017-09-17] MEDS: Pantoprazole 40 MG GRANULES PACKET PO SCH (21:23)
[2017-09-17] MEDS: Atorvastatin Calcium 10 MG TAB PO SCH (21:23)
[2017-09-18] MEDS: Levothyroxine Sodium 125 MCG TAB PO SCH (05:40)
[2017-09-18 05:56] LABS: #Eosinphils 0.5 thou/uL (0.0-0.7); #Lymphocytes 1.9 thou/uL (1.20-3.40); #Monocytes 0.5 thou/uL (0.11-0.59); #Neutrophils 3.5 thou/uL (1.40-6.50); %Basophils 0.2 % (0.0-1.0); %Eosinophils 8.3 % (0.0-10.0); %Lymphocytes 29.6 % (21.0-51.0); %Monocytes 7.6 % (0.0-10.0); %Neutrophils 54.4 % (42.0-75.0); Mean Corpuscular HGB CONC 31.2 g/dL (32.0-36.0); Mean Corpuscular Hemoglobin 28.2 pg (27.0-31.0); Mean Corpuscular Volume 90.3 fl (81.0-99.0); Mean Platelet Volume 6.9 fL (7.4-10.4); Platelet Count 288 thou/uL (130-400); RBC Distribution Width 13.2 % (11.5-14.5); White Blood Cell (WBC) Count 6.4 thou/uL (4.8-10.8)
[2017-09-18 06:19] LABS: Anion Gap 15 mmol/L (10-20); BUN (Urea Nitrogen) 24 mg/dL (9.8-20.1); Calc. Creatinine Clearance 40 mL/min (70-130); Calcium 9.3 mg/dL (7.8-10.44); Carbon Dioxide 21 mmol/L (23-31); Chloride 106 mmol/L (98-107); Estimated GFR-MDRD 44; Glucose 91 mg/dL (83-110); Potassium 4.7 mmol/L (3.5-5.1); Sodium 137 mmol/L (136-145)
[2017-09-18] MEDS: Polyethylene Glycol 3350 17 GM Packet PO SCH (09:01)
[2017-09-18] MEDS: Enoxaparin Sodium 30 MG/0.3 ML SYRINGE SC SCH (09:01)
[2017-09-18] MEDS: HYDROcodone/Acetaminophen 10/325 mg Tablet PO PRN ×3 (09:02→22:08)
[2017-09-18] MEDS: Docusate 100 MG CAP PO SCH ×2 (09:02→20:33)
[2017-09-18] MEDS: Folic Acid 1 MG TAB PO SCH (09:02)
[2017-09-18] MEDS: glipiZIDE 5 MG TAB PO SCH (09:02)
[2017-09-18] MEDS: Aspirin 81 mg Enteric Coated Tablet PO SCH (09:02)
[2017-09-18] MEDS: Carvedilol 6.25 MG TAB PO SCH ×2 (09:03→20:32)
[2017-09-18] MEDS: Cyanocobalamin (Vitamin B-12) 1,000 MCG TAB PO SCH (09:03)
[2017-09-18] MEDS: Gabapentin 100 MG CAP PO SCH ×2 (09:03→20:34)
[2017-09-18] MEDS: Sulfameth/Trimethoprim DS 800-160mg TAB PO SCH ×2 (09:03→20:33)
--- NOTE | 2017-09-18 17:33 | PDOC.EVN ---
Event Note - Event Note Event Note: Placed discharge on hold due to pending swing bed transfer. Probable transfer in AM
--- NOTE | 2017-09-18 20:20 | PDOC.PN ---
- Subjective Encounter Start Date: 09/18/17 Encounter Start Time: 16:00 Patient seen and examined. No new complaints. No overnight events - Objective Resuscitation Status: Resuscitation Status FULL:Full Resuscitation MAR Reviewed: Yes Vital Signs & Weight: Vital Signs (12 hours) Temp Pulse Pulse Resp BP BP BP 09/18/17 19:34 98.8 F 77 18 110/65 09/18/17 15:30 98.2 F 76 16 113/55 L 09/18/17 11:50 98.2 F 71 16 129/67 09/18/17 09:03 145/70 H 09/18/17 08:37 73 145/70 H Pulse Ox 09/18/17 19:34 93 L 09/18/17 15:30 96 09/18/17 11:50 97 09/18/17 09:03 09/18/17 08:37 Weight Weight 156 lb 6.4 oz I&O: 09/17/17 09/18/17 09/19/17 06:59 06:59 06:59 Intake Total 250 1000 Output Total 300 Balance 250 700 Result Diagrams: 09/18/17 05:35 09/18/17 05:35 Additional Labs: Accuchecks 09/18/17 09/18/17 09/18/17 17:04 11:06 05:52 POC Glucose 230 H 208 H 105 09/17/17 20:49 POC Glucose 246 H EKG Reviewed by me: Yes (Tele SR) Phys Exam - Physical Examination Constitutional: NAD Respiratory: no wheezing, no rhonchi Cardiovascular: RRR, no rub Gastrointestinal: soft, non-tender, positive bowel sounds Musculoskeletal: no edema Dx/Plan - Plan DVT proph w/SCDs IMPRESSION: 1. Generalized weakness/Toxic metabolic encephalopathy, multifactorial. - resolved 2. Persistent fever at SNF - resolved - bacteremia ruled out. ID recommended no need for Antibiotics. 3. Chronic pain syndrome 4. Left wrist cellulitis, currently on Bactrim (started prior to this admission ) 5. Status post spine surgery in [place]. Patient probably had laminectomy from T7-T11 and L1-L2 per patient report. Had CT this admission without contrast - no need for acute intervention per Dr Mina - Has appt with primary NSG at [place] next month. 6. Coronary artery disease, status post stent placement. 7. Diabetes mellitus type 2. on sliding scale/Glipizide 8. Sinus node dysfunction status post pacemaker. 9. Hypothyroidism. 10. Hypertension. 11. Hyperlipidemia. 12. Degenerative joint disease. 13. Acute kidney injury on chronic kidney disease stage 3. resolved 14. Hyponatremia - resolved 15. Dementia - on Aricept 16. Recurrent falls. Patient has probably 6-7 falls in the last 6 months per family report. PT working with her PLAN: * Cultures neg * ID/NSG/Neuro signed off * Cont Bactrim - DC on 09/21 * Monitor overnight - if no issues then possible DC in AM * DC paperwork/med rec completed. No Doctor at swing bed to accept her today - Will hold DC. Review of Systems - Review of Systems Respiratory: negative: Cough, Dry, Shortness of Breath, Hemoptysis, SOB with Excertion, Pleuritic Pain, Sputum, Wheezing Cardiovascular: negative: chest pain, palpitations, orthopnea, paroxysmal nocturnal dyspnea, edema, light headedness - Medications/Allergies Allergies/Adverse Reactions: Allergies Allergy/AdvReac Type Severity Reaction Status Date / Time levofloxacin [From Levaquin] Allergy Rash Verified 08/28/17 13:21 Penicillins Allergy Rash Verified 08/28/17 13:21 Medications: Current Medications Acetaminophen (Tylenol) 650 mg PO Q4H PRN PRN Reason: Headache/Fever or Pain Hydrocodone Bitart/Acetaminophen ([place] 10/325) 1 tab PO Q6H PRN PRN Reason: Moderate Pain (4-6) Last Admin: 09/18/17 15:46 Dose: 1 tab Aspirin (Ecotrin) 81 mg PO DAILY [facility] Last Admin: 09/18/17 09:02 Dose: 81 mg Atorvastatin Calcium (Lipitor) 10 mg PO HS [facility] Last Admin: 09/17/17 21:23 Dose: 10 mg Carvedilol (Coreg) 12.5 mg PO BID [facility] Last Admin: 09/18/17 09:03 Dose: 12.5 mg Cyanocobalamin (Vitamin B-12) 1,000 mcg PO DAILY [facility] Last Admin: 09/18/17 09:03 Dose: 1,000 mcg Dextrose/Water (Dextrose 50%) 25 gm SLOW IVP PRN PRN PRN Reason: Hypoglycemia Docusate Sodium (Colace) 100 mg PO BID [facility] Last Admin: 09/18/17 09:02 Dose: 100 mg Donepezil HCl (Aricept) 10 mg PO HS [facility] Last Admin: 09/17/17 21:21 Dose: 10 mg Enoxaparin Sodium (Lovenox) 30 mg SC 0900 [facility] Last Admin: 09/18/17 09:01 Dose: 30 mg Folic Acid (Folvite) 1 mg PO DAILY [facility] Last Admin: 09/18/17 09:02 Dose: 1 mg Gabapentin (Neurontin) 100 mg PO BID [facility] Last Admin: 09/18/17 09:03 Dose: 100 mg Glipizide (Glucotrol) 2.5 mg PO DAILY [facility] Last Admin: 09/18/17 09:02 Dose: 2.5 mg Glucagon (Glucagon) 1 mg IM PRN PRN PRN Reason: Hypoglycemia Hydralazine HCl (Apresoline) 10 mg SLOW IVP Q4H PRN PRN Reason: SBP Greater Than 180 Dextrose/Water (D5w) 1,000 mls @ 0 mls/hr IV .Q0M PRN; As Directed PRN Reason: Hypoglycemia Insulin Human Regular (Humulin R) 0 units SC .MILD SLIDING SCALE PRN PRN Reason: Mild Correctional Scale Last Admin: 09/17/17 18:49 Dose: 2 unit Insulin Human Regular (Humulin R) 0 units SC .BEDTIME SLIDING SC PRN PRN Reason: Bedtime Correctional Scale Last Admin: 09/15/17 23:04 Dose: 3 unit Levothyroxine Sodium (Synthroid) 125 mcg PO 0600 [facility] Last Admin: 09/18/17 05:40 Dose: 125 mcg Melatonin (Melatonin) 9 mg PO HS [facility] Last Admin: 09/17/17 21:22 Dose: 9 mg Nitroglycerin (Nitrostat) 0.4 mg PO Q5MIN PRN PRN Reason: Chest Pain Ondansetron HCl (Zofran Odt) 4 mg PO Q6H PRN PRN Reason: Nausea/Vomiting Pantoprazole Sodium (Protonix) 40 mg PO 2100 [facility] Last Admin: 09/17/17 21:23 Dose: 40 mg Polyethylene Glycol (Miralax) 17 gm PO DAILY [facility] Last Admin: 09/18/17 09:01 Dose: 17 gm Senna (Senokot) 2 tab PO HSPRN PRN PRN Reason: Constipation Tramadol HCl (Ultram) 50 mg PO QID PRN PRN Reason: Pain Last Admin: 09/16/17 09:08 Dose: 50 mg Trimethoprim/Sulfamethoxazole (Bactrim Ds) 1 tab PO BID [facility] Last Admin: 09/18/17 09:03 Dose: 1 tab
[2017-09-18] MEDS: Melatonin 3 MG TAB PO SCH (20:31)
[2017-09-18] MEDS: traMADol HCl 50 MG TAB PO PRN (20:31)
[2017-09-18] MEDS: Atorvastatin Calcium 10 MG TAB PO SCH (20:33)
[2017-09-18] MEDS: Pantoprazole 40 MG GRANULES PACKET PO SCH (20:33)
[2017-09-18] MEDS: Donepezil HCl 10 MG TAB PO SCH (20:33)
[2017-09-19] MEDS: Levothyroxine Sodium 125 MCG TAB PO SCH (05:48)
[2017-09-19] MEDS: Polyethylene Glycol 3350 17 GM Packet PO SCH (08:46)
[2017-09-19] MEDS: Aspirin 81 mg Enteric Coated Tablet PO SCH (08:46)
[2017-09-19] MEDS: Docusate 100 MG CAP PO SCH (08:47)
[2017-09-19] MEDS: Folic Acid 1 MG TAB PO SCH (08:47)
[2017-09-19] MEDS: Sulfameth/Trimethoprim DS 800-160mg TAB PO SCH (08:47)
[2017-09-19] MEDS: glipiZIDE 5 MG TAB PO SCH (08:48)
[2017-09-19] MEDS: Carvedilol 6.25 MG TAB PO SCH (08:48)
[2017-09-19] MEDS: Cyanocobalamin (Vitamin B-12) 1,000 MCG TAB PO SCH (08:48)
[2017-09-19] MEDS: Gabapentin 100 MG CAP PO SCH (08:49)
[2017-09-19] MEDS: Enoxaparin Sodium 30 MG/0.3 ML SYRINGE SC SCH (08:49)
[2017-09-19] MEDS: HYDROcodone/Acetaminophen 10/325 mg Tablet PO PRN (08:58)
--- NOTE | 2017-09-19 10:48 | PDOC.PN ---
- Subjective Encounter Start Date: 09/19/17 Encounter Start Time: 09:00 Subjective: no sob, has not ambulated with PT yet from yesterday -: responds well to questions - Objective Resuscitation Status: Resuscitation Status FULL:Full Resuscitation MAR Reviewed: Yes Vital Signs & Weight: Vital Signs (12 hours) Temp Pulse Resp BP Pulse Ox 09/19/17 07:10 98.9 F 70 18 135/68 94 L 09/19/17 03:26 99.4 F 82 20 133/73 91 L 09/18/17 23:24 98.9 F 83 20 142/70 H 92 L Weight Weight 156 lb 6.4 oz I&O: 09/18/17 09/19/17 09/20/17 06:59 06:59 06:59 Intake Total 1000 480 Output Total 300 Balance 700 480 Result Diagrams: 09/18/17 05:35 09/18/17 05:35 Additional Labs: Accuchecks 09/19/17 09/19/17 09/18/17 10:29 05:43 20:42 POC Glucose 210 H 134 H 199 H 09/18/17 09/18/17 17:04 11:06 POC Glucose 230 H 208 H Phys Exam - Physical Examination HEENT: PERRLA, moist MMs Neck: no JVD, supple Respiratory: no wheezing, no rales Cardiovascular: RRR, no significant murmur Gastrointestinal: soft, non-tender, positive bowel sounds Musculoskeletal: no edema, pulses present prior laminectomy scar has healed well Neurological: non-focal, moves all 4 limbs Psychiatric: A&O x 3 Dx/Plan (1) Muscular deconditioning Code(s): R29.898 - OTH SYMPTOMS AND SIGNS INVOLVING THE MUSCULOSKELETAL SYSTEM Status: Acute (2) CAD (coronary artery disease) Code(s): I25.10 - ATHSCL HEART DISEASE OF [place] CORONARY ARTERY W/O ANG PCTRS Status: Chronic Qualifiers: Coronary Disease-Associated Artery/Lesion type: [place] artery [place] vs. transplanted heart: [place] heart Associated angina: without angina Qualified Code(s): I25.10 - Atherosclerotic heart disease of [place] coronary artery without angina pectoris (3) Dyslipidemia Code(s): E78.5 - HYPERLIPIDEMIA, UNSPECIFIED Status: Chronic (4) Dementia Code(s): F03.90 - UNSPECIFIED DEMENTIA WITHOUT BEHAVIORAL DISTURBANCE Status: Chronic Qualifiers: Dementia type: unspecified type (5) Diabetes mellitus Code(s): E11.9 - TYPE 2 DIABETES MELLITUS WITHOUT COMPLICATIONS Status: Chronic Qualifiers: Diabetes mellitus type: type 2 Diabetes mellitus complication status: with kidney complications Diabetes mellitus complication detail: with chronic kidney disease Diabetes mellitus shelter insulin use: without shelter use Chronic kidney disease stage: stage 2 (mild) Qualified Code(s): E11.22 - Type 2 diabetes mellitus with diabetic chronic kidney disease; N18.2 - Chronic kidney disease, stage 2 (mild); N18.2 - Chronic kidney disease, stage 2 (mild) (6) Hypothyroidism Code(s): E03.9 - HYPOTHYROIDISM, UNSPECIFIED Status: Chronic Qualifiers: Hypothyroidism type: unspecified Qualified Code(s): E03.9 - Hypothyroidism , unspecified - Plan hemo/neuro stable -: awaiting swing bed acceptance in [place] -: may dc if accepted -: PT to mobilize pt as tolerated -: no fever, lechuga cultures are -ve, d/w family in room * . Review of Systems - Medications/Allergies Allergies/Adverse Reactions: Allergies Allergy/AdvReac Type Severity Reaction Status Date / Time levofloxacin [From Levaquin] Allergy Rash Verified 08/28/17 13:21 Penicillins Allergy Rash Verified 08/28/17 13:21 Medications: Current Medications Acetaminophen (Tylenol) 650 mg PO Q4H PRN PRN Reason: Headache/Fever or Pain Hydrocodone Bitart/Acetaminophen ([place] 10/325) 1 tab PO Q6H PRN PRN Reason: Moderate Pain (4-6) Last Admin: 09/19/17 08:58 Dose: 1 tab Aspirin (Ecotrin) 81 mg PO DAILY [facility] Last Admin: 09/19/17 08:46 Dose: 81 mg Atorvastatin Calcium (Lipitor) 10 mg PO HS [facility] Last Admin: 09/18/17 20:33 Dose: 10 mg Carvedilol (Coreg) 12.5 mg PO BID [facility] Last Admin: 09/19/17 08:48 Dose: 12.5 mg Cyanocobalamin (Vitamin B-12) 1,000 mcg PO DAILY [facility] Last Admin: 09/19/17 08:48 Dose: 1,000 mcg Dextrose/Water (Dextrose 50%) 25 gm SLOW IVP PRN PRN PRN Reason: Hypoglycemia Docusate Sodium (Colace) 100 mg PO BID [facility] Last Admin: 09/19/17 08:47 Dose: 100 mg Donepezil HCl (Aricept) 10 mg PO HS [facility] Last Admin: 09/18/17 20:33 Dose: 10 mg Enoxaparin Sodium (Lovenox) 30 mg SC 0900 [facility] Last Admin: 09/19/17 08:49 Dose: 30 mg Folic Acid (Folvite) 1 mg PO DAILY [facility] Last Admin: 09/19/17 08:47 Dose: 1 mg Gabapentin (Neurontin) 100 mg PO BID [facility] Last Admin: 09/19/17 08:49 Dose: Not Given Glipizide (Glucotrol) 2.5 mg PO DAILY [facility] Last Admin: 09/19/17 08:48 Dose: 2.5 mg Glucagon (Glucagon) 1 mg IM PRN PRN PRN Reason: Hypoglycemia Hydralazine HCl (Apresoline) 10 mg SLOW IVP Q4H PRN PRN Reason: SBP Greater Than 180 Dextrose/Water (D5w) 1,000 mls @ 0 mls/hr IV .Q0M PRN; As Directed PRN Reason: Hypoglycemia Insulin Human Regular (Humulin R) 0 units SC .MILD SLIDING SCALE PRN PRN Reason: Mild Correctional Scale Last Admin: 09/17/17 18:49 Dose: 2 unit Insulin Human Regular (Humulin R) 0 units SC .BEDTIME SLIDING SC PRN PRN Reason: Bedtime Correctional Scale Last Admin: 09/15/17 23:04 Dose: 3 unit Levothyroxine Sodium (Synthroid) 125 mcg PO 0600 [facility] Last Admin: 09/19/17 05:48 Dose: 125 mcg Melatonin (Melatonin) 9 mg PO HS [facility] Last Admin: 09/18/17 20:31 Dose: 9 mg Nitroglycerin (Nitrostat) 0.4 mg PO Q5MIN PRN PRN Reason: Chest Pain Ondansetron HCl (Zofran Odt) 4 mg PO Q6H PRN PRN Reason: Nausea/Vomiting Pantoprazole Sodium (Protonix) 40 mg PO 2100 [facility] Last Admin: 09/18/17 20:33 Dose: 40 mg Polyethylene Glycol (Miralax) 17 gm PO DAILY [facility] Last Admin: 09/19/17 08:46 Dose: 17 gm Senna (Senokot) 2 tab PO HSPRN PRN PRN Reason: Constipation Tramadol HCl (Ultram) 50 mg PO QID PRN PRN Reason: Pain Last Admin: 09/18/17 20:31 Dose: 50 mg Trimethoprim/Sulfamethoxazole (Bactrim Ds) 1 tab PO BID [facility] Last Admin: 09/19/17 08:47 Dose: 1 tab
[2017-09-19] MEDS: Insulin Regular 300 UNITS/3 ML VIAL SC PRN (11:11)
[2017-09-19 11:40] VITALS: BP 124/68; TEMP 97.9
--- NOTE | 2017-09-20 21:00 | DIS ---
DATE OF ADMISSION: 09/16/2017 DATE OF DISCHARGE: 09/19/2017 DISCHARGE DISPOSITION: To [facility]. PRIMARY DISCHARGE DIAGNOSES: Generalized weakness with physical deconditioning. SECONDARY DISCHARGE DIAGNOSES: Coronary artery disease; dyslipidemia; dementia; diabetes mellitus, t ype 2; hypothyroidism. PROCEDURES DONE DURING HOSPITALIZATION: The patient has had ultrasound venous Doppler of lower extre mities, done which showed no evidence of DVT. CT thoracic spine showed multilevel degenerative syed es seen in the mid and lower thoracic spine. There are postsurgical changes seen in the lower thorac ic as well as visualized upper lumbar spine. Chronic interstitial lung changes, prominent vascular c alcifications, hiatal hernia. CT lumbar spine done showed extensive multilevel degenerative changes with postsurgical changes seen at multiple levels related to laminectomy defects. There was no fract ure or subluxation involving lumbar spine was seen. Blood cultures x2 no growth. Urine culture no g rowth. Stool for C. difficile was negative for antigen and toxin. H and H 11 and 35, platelet count 288. Sed rate was 60, PT/INR 14 and 1.1, BUN and creatinine 24 and 1.1. B12 levels were 434, folic acid 39, CRP 22. DISCHARGE MEDICATIONS: Aspirin 81 mg p.o. daily, Lipitor 10 mg p.o. at bedtime, Coreg 12.5 mg p.o. t wice daily, vitamin B12 1000 mcg p.o. daily, vitamin D3 5000 units p.o. daily, Colace 100 mg p.o. twi ce daily, Aricept 10 mg p.o. at bedtime, folic acid 1 mg p.o. daily, gabapentin 100 mg p.o. twice milena ly, glipizide 2.5 mg p.o. daily, levothyroxine 125 mcg p.o. daily, Protonix 40 mg p.o. daily, MiraLax 17 grams daily, Bactrim double-strength 1 tab p.o. twice daily to stop on the , Ultram p.r.n. fo r pain. ALLERGIES: LEVAQUIN and PENICILLIN. INPATIENT CONSULTS: Dr. Morel for Neurology, Dr. Mina for Neurosurgery, Dr. Sandhu for Infectious Di sease. BRIEF COURSE DURING HOSPITALIZATION: Patient initially got admitted on the with complaints of f ever at home with off and on confusion. She was initially worked up for sepsis. All her cultures rose ve come back negative. Multiple workup including CT of the lumbar and thoracic spines have not revea led any acute pathology. She was evaluated by Dr. Sandhu from Infectious Disease and Dr. Mina from Neurosurgery in view of recent laminectomy and Dr. Morel from Neurology. She remained hemodynamically stable and neurologically stable during her stay here. She has been ambulating with physical therap y. The patient's fever completely resolved during her stay here. She has been on Bactrim for left w rist cellulitis and needs to continue this until the of this month. Due to deconditioning, she is being discharged to inpatient swing bed at [facility] in [place] and will be shortly discharg ed. A total of 35 minutes was spent on discharge plan. Please see a [id number] documentation on [facility] for the day of discharge.
== END 2017-09-19 14:29 | disposition swing bed (61) | DRG 92 ==
LOC: 2SE 16:21
PROVIDERS: ADMIT Internal Medicine; ATTEND Internal Medicine
DX: G92 Toxic encephalopathy (principal); L03.114 Cellulitis of left upper limb; E11.9 Type 2 diabetes mellitus without complications; E87.1 Hypo-osmolality and hyponatremia; F03.90 Unspecified dementia, unspecified severity, without behavioral disturbance, psychotic disturbance, mood disturbance, and anxiety; B96.20 Unspecified Escherichia coli [E. coli] as the cause of diseases classified elsewhere; E03.9 Hypothyroidism, unspecified; E78.5 Hyperlipidemia, unspecified; I25.5 Ischemic cardiomyopathy; I25.10 Atherosclerotic heart disease of native coronary artery without angina pectoris; Z95.5 Presence of coronary angioplasty implant and graft; Z95.0 Presence of cardiac pacemaker; G89.4 Chronic pain syndrome; M19.90 Unspecified osteoarthritis, unspecified site; I13.10 Hypertensive heart and chronic kidney disease without heart failure, with stage 1 through stage 4 chronic kidney disease, or unspecified chronic kidney disease; N18.3 Chronic kidney disease, stage 3 (moderate); R53.81 Other malaise; Z91.81 History of falling
CPT/HCPCS: 36415; 36416; 72128; 72131; 80048; 80053; 81001; 82550; 82553; 82607; 82746; 83735; 84100; 84484; 85025; 85610; 85652; 85730; 86140; 87040; 87086; 87324; 87449; 93970; G8978-GP-CK; G8979-GP-CI; G8987-GO-CJ; G8988-GO-CI; J1650; J1815

== ENCOUNTER 2018-03-24 21:56 | Inpatient (IN) | payer MEDICARE ==
[2018-03-24] MEDS ORDERED: Acetaminophen 500 MG TAB ONE (22:39)
[2018-03-24] MEDS ORDERED: RENALLY ADJUST ANTIBIOTICS IVPB PRN (23:42)
[2018-03-25] MEDS ORDERED: MEROPENEM 1 GM/50 ML 1 GM in Premix Bag 1 BAG IVPB SCH (02:15)
[2018-03-25 04:52] VITALS: BMI 29.1
[2018-03-25] MEDS ORDERED: Acetaminophen 325 MG TAB PO PRN (08:33)
[2018-03-25] MEDS ORDERED: predniSONE 5 MG TAB PO PRN (08:34)
[2018-03-25] MEDS ORDERED: Bisacodyl 5 MG TAB PO PRN (08:34)
[2018-03-25] MEDS ORDERED: Dextrose 5% in Water 1,000 ML IV PRN (08:46)
[2018-03-25] MEDS ORDERED: Dextrose 50% Abboject 50 ML SYRINGE SLOW IVP PRN (08:46)
[2018-03-25] MEDS ORDERED: Non-Formulary Item 1 EACH (Carvedilol [Carvedilol] 12.5 MG) PO SCH (09:00)
[2018-03-25] MEDS ORDERED: Cefepime 1 GM in Sodium Chloride 0.9% 100 ML IVPB SCH (09:00)
[2018-03-25] MEDS ORDERED: Non-Formulary Item 1 EACH (Etanercept [Enbrel] 50 MG) SC SCH (09:00)
--- NOTE | 2018-03-25 09:11 | CT ---
PRELIMINARY REPORT/[facility]/EMERGENTY AFTER-HOURS PROCEDURE CT Abdomen and Pelvis Without Intravenous Contrast EXAM DATE/TIME: 03/25/2018 12:26 AM CLINICAL HISTORY: 82 years old, female; Pain; Abdominal pain; Generalized; Patient HX: R/O stone TECHNIQUE: Axial computed tomography images of the abdomen and pelvis without intravenous contrast. Coronal reformatted images were created and reviewed. COMPARISON: No relevant prior studies available. FINDINGS: Lung bases: Bibasilar pulmonary fibrosis. Heart: There is coronary artery calcification. ABDOMEN: Liver: Unremarkable. There are no focal liver lesions seen on noncontrast evaluation. Gallbladder and bile ducts: There has been a cholecystectomy. No ductal dilation. Pancreas: Unremarkable. No ductal dilation. Spleen: Unremarkable. No splenomegaly. Adrenals: Unremarkable. No mass. Kidneys and ureters: Mild right hydronephrosis. No obstructing stones are seen. Stomach and bowel: There is diverticular disease of the colon, without evidence of acute diverticulit is. No perforation, or abscess. No signs or history of bleeding provided. No obstruction. PELVIS: Appendix: No findings to suggest acute appendicitis. Bladder: The bladder is decompressed by a Bailey catheter. No stones. Reproductive: Unremarkable as visualized. ABDOMEN and PELVIS: Intraperitoneal space: Unremarkable. No free air. No significant fluid collection. Bones/joints: No acute fracture. No dislocation. Soft tissues: There is a moderate sized haital hernia. Vasculature: There is mild right greater process although no obstructing stones are seen. Multiple ph leboliths are seen in the pelvis. No abdominal aortic aneurysm. Lymph nodes: Unremarkable. No enlarged lymph nodes. Tubes, lines and devices: A pacemaker is present. IMPRESSION: Mild right hydronephrosis. No obstructing calculi are seen on the current exam. Findings may be secondary to a recently passed calculus or acute pyelonephritis/urinary tract infection, or a distal ureteral or bladder lesion. Clinical and laboratory correlation recommended. Thank you for allowing us to participate in the care of your patient. Dictated and Authenticated by: Priscilla Whyte MD 03/25/2018 1:45 AM Central Time ([place] & [place]) FINAL REPORT CT ABDOMEN AND PELVIS WITHOUT CONTRAST STONE PROTOCOL: HISTORY: Pyelonephritis. Abdominal pain. Flank pain. COMPARISON: None. FINDINGS: Findings and impression are concordant with the preliminary report. POS: [facility]
[2018-03-25] MEDS: Lisinopril 10 MG TAB PO SCH (09:49)
[2018-03-25] MEDS: Carvedilol 6.25 MG TAB PO SCH ×2 (09:49→20:40)
[2018-03-25] MEDS: Levothyroxine Sodium 125 MCG TAB PO SCH (09:49)
[2018-03-25] MEDS: glipiZIDE 5 MG TAB PO SCH (09:50)
[2018-03-25] MEDS: Oxybutynin 5 MG TAB PO SCH (09:50)
[2018-03-25 10:07] LABS: #Lymphocytes 1.1 thou/uL (1.20-3.40); #Monocytes 0.9 thou/uL (0.11-0.59); #Neutrophils 7.8 thou/uL (1.40-6.50); %Basophils 0.4 % (0.0-1.0); %Eosinophils 0.4 % (0.0-10.0); %Lymphocytes 11.3 % (21.0-51.0); %Monocytes 8.9 % (0.0-10.0); Hemoglobin 11.5 g/dL (12.0-16.0); Mean Corpuscular HGB CONC 33.8 g/dL (32.0-36.0); Mean Corpuscular Hemoglobin 31.6 pg (27.0-31.0); Mean Corpuscular Volume 93.6 fL (78.0-98.0); Mean Platelet Volume 7.5 fL (7.4-10.4); Platelet Count 152 thou/uL (130-400); RBC Distribution Width 14.7 % (11.5-14.5); Red Blood Cell (RBC) Count 3.65 mill/uL (4.20-5.40); White Blood Cell (WBC) Count 9.8 thou/uL (4.8-10.8)
[2018-03-25 10:17] LABS: ALT (SGPT) 14 U/L (8-55); AST (SGOT) 13 U/L (5-34); Albumin 3.8 g/dL (3.4-4.8); Alkaline Phosphatase 60 U/L (40-150); Anion Gap 12 mmol/L (10-20); BUN (Urea Nitrogen) 15 mg/dL (9.8-20.1); Bilirubin, Total 0.8 mg/dL (0.2-1.2); Calc. Creatinine Clearance 52 mL/min (70-130); Calcium 9.1 mg/dL (7.8-10.44); Carbon Dioxide 24 mmol/L (23-31); Chloride 104 mmol/L (98-107); Estimated GFR-MDRD 52; Glucose 120 mg/dL (83-110); Potassium 3.6 mmol/L (3.5-5.1); Protein, Total 6.8 g/dL (6.0-8.3); Sodium 136 mmol/L (136-145)
--- NOTE | 2018-03-25 11:22 | HP ---
PRIMARY CARE PROVIDER: Listed as Ml Gordon REASON CHIEF COMPLAINT: The patient admitted to [facility] through [facility] after transfer from [facility]. HISTORY OF PRESENT ILLNESS: The patient has dementia, unable to give any history. She is alert, aw leanna, oriented to person only. There is no family present. History is obtained from the emergency ro om record. The patient was seen in [facility], diagnosis of pyelonephritis was made. The family re ports decreased mental status, temperature of 102. She was having generalized pain which seemed to b e focal to her back. She was evaluated and referred to [facility] for admission. PAST MEDICAL AND SURGICAL HISTORY: Extensive, diabetes mellitus type 2, hypertension, dyslipidemia, hypothyroidism, dementia, coronary artery disease post-PCI pacemaker. She has had bilateral knee pablito vinny, extensive L-spine surgery, thyroidectomy, cholecystectomy, hysterectomy. CURRENT MEDICATIONS: Protonix 40 mg a day, Ditropan 5 mg a day, Glucotrol-XL 5 mg 1 twice a day, Zes tril 10 mg a day, [place] 10/325 q.8 hours p.r.n., melatonin 10 mg at bedtime, Synthroid 112 mcg a day, Lipitor 40 mg a day, Aricept 10 mg a day, Ultram, prednisone 5 mg a day. She is on methotrexate meme ry Thursday subcu, aspirin 81 mg a day, MiraLax daily, Enbrel subcu once a week. ALLERGIES: LEVOFLOXACIN and PENICILLIN. FAMILY HISTORY: Per the chart is negative for inheritable diseases, has coronary artery disease. SOCIAL HISTORY: Lives with daughter. No tobacco, no alcohol. REVIEW OF SYSTEMS: Unable to obtain review of systems due to patient's severe dementia, oriented to person and unable to answer any questions. PHYSICAL EXAMINATION: VITAL SIGNS: Temperature 100 max, pulse 70-82, respirations 18-20, blood pressure 140/80-162/76. GENERAL: The patient is awake, oriented to person only, unable to give history. HEENT: Reveal pupils equal, round, reactive to light. Extraocular movements are intact. Sclerae wh ite. Tympanic membranes clear. Nose clear. Oral mucous membranes are wet. She is edentulous. NECK: No jugular venous distention, adenopathy or thyromegaly. CHEST: Grossly clear to auscultation and percussion. She had poor inspiratory effort. HEART: Regular rate and rhythm. First and second heart sounds were clear. No murmurs were apprecia mercy. ABDOMEN: Soft, bowel sounds are normal. No hepatosplenomegaly, no mass. No rebound or bruits. EXTREMITIES: Reveal no cyanosis, clubbing or edema. PULSES: Carotid, radial, femoral, and dorsalis pedis pulses intact. SKIN: Reveals actinic changes with some ecchymoses related to actinic changes on her arms. HEME/LYMPH: No tender or swollen lymph nodes in axilla, inguinal or cervical area. NEUROLOGIC: Cranial nerves II-XII grossly intact. Moves all extremities. Toes downgoing. Deep ten don reflexes symmetric. LABORATORY AND X-RAY FINDINGS: Chest x-ray reviewed by me, cardiomegaly, pacemaker, possible large l eft pleural effusion versus infiltrate. I find no EKG for interpretation. Here lactic acid is 1.3. Laboratory done in [place]; white count 9.5 with left shift, hemoglobin 11 .9, platelet count 142,000. Comp metabolic profile; creatinine 1.36, BUN 19. Electrolytes normal. Liver function tests normal. BNP 101. Cardiac enzymes normal. For some reason, the lactic acid has been repeated 2 more times and they are both normal. Urine is foul with too many to count white mike ls, large esterase, positive nitrite. ADMITTING DIAGNOSES: 1. Urinary tract infection with systemic inflammatory response syndrome, presumed to be pyelonephrit is. 2. Dementia. 3. Diabetes mellitus type 2. 4. Hypertension. 5. Dyslipidemia. 6. Hypothyroidism. 7. Coronary artery disease. 8. Chronic kidney disease stage 3. PLAN: Cultures have been drawn. Because she has recently been treated for pyelonephritis with Rocep hin I would choose to go to [facility] for greater gram-negative cultures. I believe it will take 2 over nights to get sensitivities to this. We will continue her home medicines. I am at a loss for what t he Enbrel and methotrexate are for, no records indicated disease for them. We will investigate this further. Also, she will be followed with Accu-Cheks and sliding scale.
--- NOTE | 2018-03-25 12:10 | PDOC.EVN ---
Event Note - Event Note Event Note: indra reports 2/2 blood cultures gm neg gina. last cultures R to cefepime, S to cefoxitime- changed antibx
[2018-03-25] MEDS: MEROPENEM 1 GM/50 ML 1 GM in Premix Bag 1 BAG IVPB SCH ×2 (15:07→20:44)
[2018-03-25] MEDS: Atorvastatin Calcium 40 MG TAB PO SCH (20:40)
[2018-03-25] MEDS: Melatonin 3 MG TAB PO SCH (20:42)
[2018-03-25] MEDS: Donepezil HCl 10 MG TAB PO SCH (20:48)
[2018-03-25] MEDS ORDERED: Non-Formulary Item 1 EACH (Melatonin [Melatonin] 10 MG) PO SCH (21:00)
[2018-03-25] MEDS ORDERED: Atorvastatin Calcium 10 MG TAB PO SCH (21:00)
[2018-03-26] MEDS: MEROPENEM 1 GM/50 ML 1 GM in Premix Bag 1 BAG IVPB SCH ×3 (06:04→22:23)
[2018-03-26] MEDS: Oxybutynin 5 MG TAB PO SCH (09:24)
[2018-03-26] MEDS: glipiZIDE 5 MG TAB PO SCH (09:25)
[2018-03-26] MEDS: Levothyroxine Sodium 125 MCG TAB PO SCH (09:25)
[2018-03-26] MEDS: Carvedilol 6.25 MG TAB PO SCH ×2 (09:25→20:16)
[2018-03-26] MEDS: Lisinopril 10 MG TAB PO SCH (09:25)
[2018-03-26 10:07] LABS: #Basophils 0.1 thou/uL (0.0-0.2); #Lymphocytes 1.5 thou/uL (1.20-3.40); #Monocytes 1.1 thou/uL (0.11-0.59); #Neutrophils 7.3 thou/uL (1.40-6.50); %Basophils 0.6 % (0.0-1.0); %Eosinophils 0.5 % (0.0-10.0); %Lymphocytes 14.5 % (21.0-51.0); %Neutrophils 73.4 % (42.0-75.0); Hemoglobin 12.2 g/dL (12.0-16.0); Mean Corpuscular HGB CONC 33.3 g/dL (32.0-36.0); Mean Corpuscular Hemoglobin 30.8 pg (27.0-31.0); Mean Corpuscular Volume 92.4 fL (78.0-98.0); Mean Platelet Volume 7.4 fL (7.4-10.4); Platelet Count 159 thou/uL (130-400); RBC Distribution Width 14.5 % (11.5-14.5); Red Blood Cell (RBC) Count 3.95 mill/uL (4.20-5.40)
[2018-03-26 10:41] LABS: Anion Gap 16 mmol/L (10-20); BUN (Urea Nitrogen) 20 mg/dL (9.8-20.1); Calc. Creatinine Clearance 51 mL/min (70-130); Calcium 9.7 mg/dL (7.8-10.44); Carbon Dioxide 22 mmol/L (23-31); Chloride 101 mmol/L (98-107); Estimated GFR-MDRD 51; Glucose 145 mg/dL (83-110); Potassium 3.5 mmol/L (3.5-5.1); Sodium 135 mmol/L (136-145)
--- NOTE | 2018-03-26 18:47 | PDOC.PN ---
- Subjective Encounter Start Date: 03/26/18 Encounter Start Time: 09:40 Pt seen for followup re: bacteremia. Pt not able to provide history, could not complete ROS. - Objective Resuscitation Status: Resuscitation Status FULL:Full Resuscitation MAR Reviewed: Yes Vital Signs & Weight: Vital Signs (12 hours) Temp Pulse Resp BP BP Pulse Ox 03/26/18 16:00 97.6 F 70 20 133/69 99 03/26/18 12:00 98.8 F 80 22 H 138/75 99 03/26/18 09:25 182/89 H 03/26/18 07:20 97.4 F L 71 25 H 97 03/26/18 07:00 99.2 F 82 20 148/86 H 98 I&O: 03/25/18 03/26/18 03/27/18 06:59 06:59 06:59 Output Total 200 2325 Balance -200 -2325 Result Diagrams: 03/26/18 09:49 03/26/18 09:49 Additional Labs: Accuchecks 03/26/18 03/26/18 03/26/18 16:35 10:46 05:41 POC Glucose 165 H 164 H 132 H 03/25/18 20:25 POC Glucose 157 H EKG Reviewed by me: Yes (Tele: NSR) Phys Exam - Physical Examination Constitutional: NAD HEENT: moist MMs, sclera anicteric, oral pharynx no lesions, 2+ tonsils Neck: no nodes, no JVD, supple, full ROM Respiratory: no wheezing, no rales, no rhonchi, clear to auscultation bilateral Cardiovascular: RRR, no rub S1, S2 Gastrointestinal: soft, non-tender, no distention, positive bowel sounds Neurological: moves all 4 limbs Psychiatric: normal affect Deviation from normal: Unable to assess orientation to person, place or time Dx/Plan (1) Bacteremia Code(s): R78.81 - BACTEREMIA Status: Acute Comment: continue IV meropenem, follow cultures (2) UTI (urinary tract infection) Status: Acute Comment: continue IV meropenem, follow cultures (3) CAD (coronary artery disease) Code(s): I25.10 - ATHSCL HEART DISEASE OF [place] CORONARY ARTERY W/O ANG PCTRS Status: Chronic Qualifiers: Coronary Disease-Associated Artery/Lesion type: [place] artery [place] vs. transplanted heart: [place] heart Associated angina: without angina Qualified Code(s): I25.10 - Atherosclerotic heart disease of [place] coronary artery without angina pectoris Comment: stable (4) Dementia Code(s): F03.90 - UNSPECIFIED DEMENTIA WITHOUT BEHAVIORAL DISTURBANCE Status: Chronic Qualifiers: Dementia type: unspecified type Comment: stable (5) Diabetes mellitus Code(s): E11.9 - TYPE 2 DIABETES MELLITUS WITHOUT COMPLICATIONS Status: Chronic Qualifiers: Diabetes mellitus type: type 2 Diabetes mellitus senior living insulin use: without oil heaterman use Diabetes mellitus complication status: with kidney complications Diabetes mellitus complication detail: with chronic kidney disease Chronic kidney disease stage: stage 2 (mild) Qualified Code(s): E11.22 - Type 2 diabetes mellitus with diabetic chronic kidney disease; N18.2 - Chronic kidney disease, stage 2 (mild); N18.2 - Chronic kidney disease, stage 2 (mild) Comment: continue accuchecks, insulin sliding scale (6) Dyslipidemia Code(s): E78.5 - HYPERLIPIDEMIA, UNSPECIFIED Status: Chronic Comment: continue statin (7) Hypothyroidism Code(s): E03.9 - HYPOTHYROIDISM, UNSPECIFIED Status: Chronic Qualifiers: Hypothyroidism type: unspecified Qualified Code(s): E03.9 - Hypothyroidism , unspecified Comment: continue synthroid - Plan * . Review of Systems - Medications/Allergies Allergies/Adverse Reactions: Allergies Allergy/AdvReac Type Severity Reaction Status Date / Time levofloxacin [From Levaquin] Allergy Rash Verified 08/28/17 13:21 Penicillins Allergy Rash Verified 08/28/17 13:21 Medications: Current Medications Acetaminophen (Tylenol) 650 mg PO Q4H PRN PRN Reason: Headache/Fever or Pain Albuterol/Ipratropium (Duoneb) 3 ml NEB [id number] PRN PRN Reason: SOB &/or Wheezing Aspirin (Aspirin Chewable) 81 mg PO DAILY ON [facility] OF [facility] Last Admin: 03/26/18 09:25 Dose: 81 mg Atorvastatin Calcium (Lipitor) 40 mg PO HS ON [facility] OF [facility] Last Admin: 03/25/18 20:40 Dose: 40 mg Bisacodyl (Dulcolax) 5 mg PO DAILY PRN PRN Reason: Constipation Carvedilol (Coreg) 12.5 mg PO BID ON [facility] OF [facility] Last Admin: 03/26/18 09:25 Dose: 12.5 mg Dextrose/Water (Dextrose 50%) 25 gm SLOW IVP PRN PRN PRN Reason: Hypoglycemia Donepezil HCl (Aricept) 10 mg PO HS ON [facility] Last Admin: 03/25/18 20:48 Dose: 10 mg Glipizide (Glucotrol) 5 mg PO DAILY [facility] Last Admin: 03/26/18 09:25 Dose: Not Given Glucagon (Glucagon) 1 mg IM PRN PRN PRN Reason: Hypoglycemia Dextrose/Water (D5w) 1,000 mls @ 0 mls/hr IV .Q0M PRN; As Directed PRN Reason: Hypoglycemia Meropenem 1 gm/ Device 50 mls @ 100 mls/hr IVPB Q8HR ON LICENSE OF [facility] Last Admin: 03/26/18 14:33 Dose: 50 mls Insulin Human Lispro (Humalog) 0 units SC .MILD SLIDING SCALE PRN PRN Reason: Mild Correctional Scale Levothyroxine Sodium (Synthroid) 125 mcg PO DAILY ON [facility] Last Admin: 03/26/18 09:25 Dose: 125 mcg Lisinopril (Zestril) 10 mg PO DAILY [facility] Last Admin: 03/26/18 09:25 Dose: 10 mg Melatonin (Melatonin) 9 mg PO [facility] Last Admin: 03/25/18 20:42 Dose: 9 mg Ondansetron HCl (Zofran Odt) 4 mg PO Q6H PRN PRN Reason: Nausea/Vomiting Oxybutynin Chloride (Ditropan) 5 mg PO DAILY ON [facility] Last Admin: 03/26/18 09:24 Dose: 5 mg Prednisone (Prednisone) 5 mg PO DAILY PRN PRN Reason: Joint Stiffness Sodium Chloride (Flush - Normal Saline) 10 ml IVF Q12HR ON [facility] OF [facility] Last Admin: 03/26/18 09:25 Dose: 10 ml Sodium Chloride (Flush - Normal Saline) 10 ml IVF PRN PRN PRN Reason: Saline Flush
[2018-03-26] MEDS: Donepezil HCl 10 MG TAB PO SCH (20:16)
[2018-03-26] MEDS: Melatonin 3 MG TAB PO SCH (20:16)
[2018-03-26] MEDS: Atorvastatin Calcium 40 MG TAB PO SCH (20:16)
[2018-03-27 04:35] LABS: #Basophils 0.1 thou/uL (0.0-0.2); #Eosinphils 0.2 thou/uL (0.0-0.7); #Lymphocytes 1.6 thou/uL (1.20-3.40); #Monocytes 1.2 thou/uL (0.11-0.59); #Neutrophils 5.5 thou/uL (1.40-6.50); %Basophils 0.6 % (0.0-1.0); %Eosinophils 1.9 % (0.0-10.0); %Lymphocytes 18.4 % (21.0-51.0); %Monocytes 14.3 % (0.0-10.0); %Neutrophils 64.9 % (42.0-75.0); Mean Corpuscular HGB CONC 34.6 g/dL (32.0-36.0); Mean Corpuscular Hemoglobin 32.1 pg (27.0-31.0); Mean Corpuscular Volume 92.8 fL (78.0-98.0); Mean Platelet Volume 7.8 fL (7.4-10.4); Platelet Count 171 thou/uL (130-400); RBC Distribution Width 14.6 % (11.5-14.5); Red Blood Cell (RBC) Count 3.74 mill/uL (4.20-5.40); White Blood Cell (WBC) Count 8.5 thou/uL (4.8-10.8)
[2018-03-27 04:44] LABS: Anion Gap 15 mmol/L (10-20); BUN (Urea Nitrogen) 28 mg/dL (9.8-20.1); Calc. Creatinine Clearance 48 mL/min (70-130); Calcium 9.9 mg/dL (7.8-10.44); Carbon Dioxide 26 mmol/L (23-31); Chloride 102 mmol/L (98-107); Estimated GFR-MDRD 47; Glucose 127 mg/dL (83-110); Potassium 3.6 mmol/L (3.5-5.1); Sodium 139 mmol/L (136-145)
[2018-03-27] MEDS: MEROPENEM 1 GM/50 ML 1 GM in Premix Bag 1 BAG IVPB SCH ×3 (05:16→21:30)
[2018-03-27] MEDS: Carvedilol 6.25 MG TAB PO SCH ×2 (08:54→20:33)
[2018-03-27] MEDS: Lisinopril 10 MG TAB PO SCH (08:54)
[2018-03-27] MEDS: glipiZIDE 5 MG TAB PO SCH (08:54)
[2018-03-27] MEDS: Oxybutynin 5 MG TAB PO SCH (08:54)
[2018-03-27] MEDS: Levothyroxine Sodium 125 MCG TAB PO SCH (08:54)
[2018-03-27] MEDS: Ondansetron ODT 4 MG TAB PO PRN (11:33)
[2018-03-27] MEDS: HumaLOG 300 UNITS/3 ML VIAL SC PRN (11:39)
--- NOTE | 2018-03-27 14:16 | PDOC.PN ---
- Subjective Encounter Start Date: 03/27/18 Encounter Start Time: 07:40 Pt seen for followup for bacteremia. More alert, answering questions. No complaints. - Objective Resuscitation Status: Resuscitation Status FULL:Full Resuscitation Vital Signs & Weight: Vital Signs (12 hours) Temp Pulse Resp BP BP Pulse Ox 03/27/18 12:04 97.9 F 77 18 108/69 97 03/27/18 08:54 119/63 03/27/18 08:10 98 F 77 18 143/78 H 97 03/27/18 08:05 98 F 77 18 03/27/18 03:56 97.2 F L 79 16 130/72 100 I&O: 03/26/18 03/27/18 03/28/18 06:59 06:59 06:59 Intake Total 872 Output Total 2380 1226 Balance -5739 -594 Result Diagrams: 03/27/18 03:24 03/27/18 03:24 Additional Labs: Accuchecks 03/27/18 03/27/18 03/26/18 11:39 05:42 20:32 POC Glucose 184 H 134 H 137 H 03/26/18 16:35 POC Glucose 165 H Phys Exam - Physical Examination Constitutional: NAD HEENT: moist MMs, sclera anicteric, oral pharynx no lesions, 2+ tonsils Neck: no nodes, no JVD, supple, full ROM Respiratory: no wheezing, no rales, no rhonchi, clear to auscultation bilateral Cardiovascular: RRR, no rub S1, S2 Gastrointestinal: soft, non-tender, no distention, positive bowel sounds Neurological: moves all 4 limbs Psychiatric: normal affect Deviation from normal: Oriented to person only Dx/Plan (1) Bacteremia Code(s): R78.81 - BACTEREMIA Status: Acute Comment: continue IV meropenem, E. coli is resistant to multiple antibiotics (2) UTI (urinary tract infection) Status: Acute Comment: continue IV meropenem (3) CAD (coronary artery disease) Code(s): I25.10 - ATHSCL HEART DISEASE OF [place] CORONARY ARTERY W/O ANG PCTRS Status: Chronic Qualifiers: Coronary Disease-Associated Artery/Lesion type: [place] artery [place] vs. 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 use: without residential use Diabetes mellitus complication status: with kidney complications Diabetes mellitus complication detail: with chronic kidney disease Chronic kidney disease stage: stage 2 (mild) Qualified Code(s): E11.22 - Type 2 diabetes mellitus with diabetic chronic kidney disease; N18.2 - Chronic kidney disease, stage 2 (mild); N18.2 - Chronic kidney disease, stage 2 (mild) Comment: on accuchecks, insulin sliding scale (6) Dyslipidemia Code(s): E78.5 - HYPERLIPIDEMIA, UNSPECIFIED Status: Chronic Comment: on statin (7) Hypothyroidism Code(s): E03.9 - HYPOTHYROIDISM, UNSPECIFIED Status: Chronic Qualifiers: Hypothyroidism type: unspecified Qualified Code(s): E03.9 - Hypothyroidism , unspecified Comment: on synthroid - Plan * . Review of Systems - Review of Systems Constitutional: negative: fever, chills, sweats, weakness, malaise Respiratory: Sputum. negative: Cough, Shortness of Breath, SOB with Excertion, Pleuritic Pain, Wheezing Cardiovascular: negative: chest pain, palpitations, orthopnea, paroxysmal nocturnal dyspnea, edema, light headedness Gastrointestinal: negative: Nausea, Vomiting, Abdominal Pain, Diarrhea, Constipation, Melena, Hematochezia Genitourinary: negative: Dysuria, Frequency, Incontinence, Hematuria, Retention Musculoskeletal: negative: Neck Pain, Shoulder Pain, Arm Pain, Back Pain, Hand Pain, Leg Pain, Foot Pain - Medications/Allergies Allergies/Adverse Reactions: Allergies Allergy/AdvReac Type Severity Reaction Status Date / Time levofloxacin [From Levaquin] Allergy Rash Verified 08/28/17 13:21 Penicillins Allergy Rash Verified 08/28/17 13:21 Medications: Current Medications Acetaminophen (Tylenol) 650 mg PO Q4H PRN PRN Reason: Headache/Fever or Pain Albuterol/Ipratropium (Duoneb) 3 ml NEB [id number] PRN PRN Reason: SOB &/or Wheezing Aspirin (Aspirin Chewable) 81 mg PO DAILY [facility] Last Admin: 03/27/18 08:54 Dose: 81 mg Atorvastatin Calcium (Lipitor) 40 mg PO HS [facility] Last Admin: 03/26/18 20:16 Dose: 40 mg Bisacodyl (Dulcolax) 5 mg PO DAILY PRN PRN Reason: Constipation Carvedilol (Coreg) 12.5 mg PO BID [facility] Last Admin: 03/27/18 08:54 Dose: 12.5 mg Dextrose/Water (Dextrose 50%) 25 gm SLOW IVP PRN PRN PRN Reason: Hypoglycemia Donepezil HCl (Aricept) 10 mg PO HS [facility] Last Admin: 03/26/18 20:16 Dose: 10 mg Glipizide (Glucotrol) 5 mg PO DAILY [facility] Last Admin: 03/27/18 08:54 Dose: 5 mg Glucagon (Glucagon) 1 mg IM PRN PRN PRN Reason: Hypoglycemia Dextrose/Water (D5w) 1,000 mls @ 0 mls/hr IV .Q0M PRN; As Directed PRN Reason: Hypoglycemia Meropenem 1 gm/ Device 50 mls @ 100 mls/hr IVPB Q8HR [facility] Last Admin: 03/27/18 05:16 Dose: 50 mls Insulin Human Lispro (Humalog) 0 units SC .MILD SLIDING SCALE PRN PRN Reason: Mild Correctional Scale Last Admin: 03/27/18 11:39 Dose: 2 unit Levothyroxine Sodium (Synthroid) 125 mcg PO DAILY [facility] Last Admin: 03/27/18 08:54 Dose: 125 mcg Lisinopril (Zestril) 10 mg PO DAILY [facility] Last Admin: 03/27/18 08:54 Dose: 10 mg Melatonin (Melatonin) 9 mg PO HS [facility] Last Admin: 03/26/18 20:16 Dose: 9 mg Ondansetron HCl (Zofran Odt) 4 mg PO Q6H PRN PRN Reason: Nausea/Vomiting Last Admin: 03/27/18 11:33 Dose: 4 mg Oxybutynin Chloride (Ditropan) 5 mg PO DAILY [facility] Last Admin: 03/27/18 08:54 Dose: 5 mg Prednisone (Prednisone) 5 mg PO DAILY PRN PRN Reason: Joint Stiffness Sodium Chloride (Flush - Normal Saline) 10 ml IVF Q12HR [facility] Last Admin: 03/27/18 08:55 Dose: 10 ml Sodium Chloride (Flush - Normal Saline) 10 ml IVF PRN PRN PRN Reason: Saline Flush
[2018-03-27] MEDS: Atorvastatin Calcium 40 MG TAB PO SCH (20:33)
[2018-03-27] MEDS: Donepezil HCl 10 MG TAB PO SCH (20:33)
[2018-03-27] MEDS: Melatonin 3 MG TAB PO SCH (20:33)
--- NOTE | 2018-03-27 23:04 | CON ---
DATE OF CONSULTATION: 03/27/2018 REASON FOR CONSULTATION: Pyelonephritis with bacteremia. HISTORY OF PRESENT ILLNESS: This is an 82-year-old, whom we had seen in the past at the beginning of this year, who has a history of type 2 diabetes, coronary artery disease, pacemaker, prior thoracic- lumbar spine fusion with instrumentation in [place] with worsening functional capacity. In August of this year, she was admitted with respiratory symptoms. 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 In 11/2017, the patient presented to [facility] with dysuria and fever. She had abnormal urinalysis with E. coli growing from urine as well as the blood. The o rganism was resistant to quinolones, susceptible to piperacillin/tazobactam, carbapenems, Bactrim, an d aminoglycosides. The profile was consistent with an ESBL-producing agent. The patient was transit ioned to nitrofurantoin for discharge planning, which she took for 7 days. Now, she presents with al tered mental status and a fever and generalized pain. On arrival, the patient was confused and could not provide with an adequate history. She is oriented to person only. The exam was not particularl y remarkable. Initial white cell count 9.5 with a left shift, hemoglobin 11.9, platelets 142,000. C reatinine 1.36, patient had 2 sets of blood cultures retrieved, which yielded E. coli with a similar susceptibility profile to the one detected earlier in November except for resistance to Bactrim and resi stance to ampicillin, ampicillin-sulbactam, and cefepime. Still susceptible to meropenem and tobramy sinai. The patient is currently on meropenem. She is awake, denies headaches, no visual symptoms, sor e throat, odynophagia, or dysphagia. No dyspnea. Some back pain, which is chronic, without changes, compared with prior pattern. No abdominal pain. I doubt there is no dysuria. She does not recall the events surrounding the clinical decompensation that led to her current admission, but now she is oriented and able to follow commands, knows her name. She has chronic joint symptoms, which are unch anged. PAST MEDICAL HISTORY: Includes type 2 diabetes mellitus, hypertension, hypothyroidism, coronary natan ry disease, pacemaker placement, polyarthralgias, chronic lesions in the nails, possible psoriasis, p rior UTI/urinary tract colonization. ALLERGIES: LEVOFLOXACIN and PENICILLIN with rash. CURRENT MEDICATIONS: Include inhalers, atorvastatin, Coreg, glipizide, levothyroxine, meropenem, ond ansetron, prednisone. FAMILY HISTORY: Coronary artery disease. SOCIAL HISTORY: Lives with daughter, never smoker. PHYSICAL EXAMINATION: VITAL SIGNS: With a T-max 100, she is currently 98; blood pressure 108/69; pulse 77; respirations 18 ; O2 sat 97%. GENERAL: Patient appears in no distress. SKIN EXAM: With peripheral IV access. She also has an indwelling Bailey catheter. No lymphadenopath y. HEENT: Ocular movements conjugate. Oral cavity moist, quite a few teeth in place. NECK: Supple, no jugular vein distention. LUNGS: With symmetric clear breath sounds with faint basilar crackles. HEART: S1 and S2 with a soft murmur aortic area, regular rate. Pacer pocket site without inflammato ry changes. ABDOMEN: Soft, not distended or tender. No ascites. No bladder distention. No acute joint inflamm atory activity noted. EXTREMITIES: Pulses 1+ in dorsalis pedis. No edema. NEUROLOGIC: She is able to move all extremities equally. She is awake, oriented, follows commands. LATEST LABORATORY DATA: White cell count 8.5, hemoglobin 12, platelets 171, 64% neutrophils. Sodium 139, creatinine 1.11. Lactic acid 1.3. Liver profile normal. Albumin 3.8. ASSESSMENT: Type 2 diabetes, coronary artery disease with pacemaker, episodes of urinary tract colon ization, and then invasive urinary tract infection in November. At that time, the patient was discharge d on nitrofurantoin. Nitrofurantoin is usually not recommended for management of invasive urinary tr act infections since it does not have proper tissue penetration. This may be the reason why she stil l has a persistent E. coli with a similar susceptibility profile in the upper tract. Continue merope nem. PICC line placement. Treat for at least 2 weeks at this time, probably longer. I would treat her for 4 weeks with ertapenem, which would allow once daily administration or meropenem 3 times a da y, which is more cost effective, but would require more frequent administrations. End date of therap y would be calculated around 04/25/2018. Weekly labs including CBC, CRP, CMP, and followup urinalysi s and urine culture. The CT findings did not show any significant obstruction and I would not recomm end any further intervention in that regard.
[2018-03-28] MEDS: MEROPENEM 1 GM/50 ML 1 GM in Premix Bag 1 BAG IVPB SCH ×3 (05:31→22:01)
[2018-03-28 05:43] LABS: Anion Gap 13 mmol/L (10-20); BUN (Urea Nitrogen) 28 mg/dL (9.8-20.1); Calc. Creatinine Clearance 52 mL/min (70-130); Calcium 9.8 mg/dL (7.8-10.44); Carbon Dioxide 27 mmol/L (23-31); Chloride 105 mmol/L (98-107); Estimated GFR-MDRD 51; Glucose 115 mg/dL (83-110); Potassium 3.3 mmol/L (3.5-5.1); Sodium 142 mmol/L (136-145)
[2018-03-28 06:20] LABS: Band 4 % (5-11); Eosinophils 5 % (0-10); Hemoglobin 11.8 g/dL (12.0-16.0); Lymphocytes 36 % (21-51); MDiff Complete? YES; Mean Corpuscular Hemoglobin 29.8 pg (27.0-31.0); Mean Platelet Volume 7.5 fL (7.4-10.4); Monocytes 9 % (0-10); Neutrophil 45 % (42-75); PLT Morphology Comment Appears Adequate; Platelet Count 204 thou/uL (130-400); RBC Distribution Width 14.7 % (11.5-14.5); Red Blood Cell (RBC) Count 3.97 mill/uL (4.20-5.40); White Blood Cell (WBC) Count 6.7 thou/uL (4.8-10.8)
[2018-03-28] MEDS: Levothyroxine Sodium 125 MCG TAB PO SCH (08:49)
[2018-03-28] MEDS: Carvedilol 6.25 MG TAB PO SCH ×2 (08:49→21:29)
[2018-03-28] MEDS: glipiZIDE 5 MG TAB PO SCH (08:49)
[2018-03-28] MEDS: Oxybutynin 5 MG TAB PO SCH (08:49)
[2018-03-28] MEDS: Lisinopril 10 MG TAB PO SCH (08:50)
[2018-03-28] MEDS ORDERED: Potassium Chloride 20 MEQ TAB PO SCH (11:00)
[2018-03-28] MEDS ORDERED: traMADol HCl 50 MG TAB PO PRN (11:29)
[2018-03-28] MEDS: HumaLOG 300 UNITS/3 ML VIAL SC PRN ×2 (11:40→17:35)
--- NOTE | 2018-03-28 12:59 | PDOC.PN ---
- Subjective Encounter Start Date: 03/28/18 Encounter Start Time: 07:00 Pt seen for followup re: bacteremia. Feels much better. More alert, oriented x2. - Objective Resuscitation Status: Resuscitation Status FULL:Full Resuscitation MAR Reviewed: Yes Vital Signs & Weight: Vital Signs (12 hours) Temp Pulse Resp BP BP Pulse Ox 03/28/18 11:47 98.3 F 78 20 134/79 94 L 03/28/18 08:50 153/78 H 03/28/18 08:49 153/78 H 03/28/18 07:42 98.5 F 68 20 153/78 H 92 L 03/28/18 04:00 98.5 F 70 20 164/84 H 94 L I&O: 03/27/18 03/28/18 03/29/18 06:59 06:59 06:59 Intake Total 872 900 Output Total 1225 1125 Balance -353 -225 Result Diagrams: 03/28/18 04:21 03/28/18 04:21 Additional Labs: Accuchecks 03/28/18 03/28/18 03/27/18 10:34 06:01 17:09 POC Glucose 223 H 122 H 118 H EKG Reviewed by me: Yes (Tele: A-paced) Phys Exam - Physical Examination Constitutional: NAD HEENT: moist MMs Neck: supple Respiratory: clear to auscultation bilateral Cardiovascular: RRR Gastrointestinal: soft Neurological: moves all 4 limbs Psychiatric: normal affect Dx/Plan (1) Bacteremia Code(s): R78.81 - BACTEREMIA Status: Acute Comment: continue IV meropenem; PICC line; discharge on ertapenem or meropenem until 04/25/2017 (2) UTI (urinary tract infection) Status: Acute Comment: continue IV meropenem (3) CAD (coronary artery disease) Code(s): I25.10 - ATHSCL HEART DISEASE OF [place] CORONARY ARTERY W/O ANG PCTRS Status: Chronic Qualifiers: Coronary Disease-Associated Artery/Lesion type: [place] artery [place] vs. 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: without supervisor newspaper deliveries use Diabetes mellitus complication status: with kidney complications Diabetes mellitus complication detail: with chronic kidney disease Chronic kidney disease stage: stage 2 (mild) Qualified Code(s): E11.22 - Type 2 diabetes mellitus with diabetic chronic kidney disease; N18.2 - Chronic kidney disease, stage 2 (mild); N18.2 - Chronic kidney disease, stage 2 (mild) Comment: continue accuchecks, insulin sliding scale (6) Dyslipidemia Code(s): E78.5 - HYPERLIPIDEMIA, UNSPECIFIED Status: Chronic Comment: continue statin (7) Hypothyroidism Code(s): E03.9 - HYPOTHYROIDISM, UNSPECIFIED Status: Chronic Qualifiers: Hypothyroidism type: unspecified Qualified Code(s): E03.9 - Hypothyroidism , unspecified Comment: continue synthroid - Plan plan discussed w/ family, continue antibiotics, PT/OT, out of bed/ambulate * . SNU vs home with home health. Family wants pt to go to [facility] if pt needs SNU. Review of Systems - Review of Systems Respiratory: negative: Cough, Shortness of Breath, SOB with Excertion, Pleuritic Pain, Wheezing Cardiovascular: negative: chest pain, palpitations, orthopnea, paroxysmal nocturnal dyspnea, edema, light headedness - Medications/Allergies Allergies/Adverse Reactions: Allergies Allergy/AdvReac Type Severity Reaction Status Date / Time levofloxacin [From Levaquin] Allergy Rash Verified 08/28/17 13:21 Penicillins Allergy Rash Verified 08/28/17 13:21 Medications: Current Medications Acetaminophen (Tylenol) 650 mg PO Q4H PRN PRN Reason: Headache/Fever or Pain Last Admin: 03/27/18 20:33 Dose: 650 mg Albuterol/Ipratropium (Duoneb) 3 ml NEB [id number] PRN PRN Reason: SOB &/or Wheezing Aspirin (Aspirin Chewable) 81 mg PO DAILY [facility] Last Admin: 03/28/18 08:50 Dose: 81 mg Atorvastatin Calcium (Lipitor) 40 mg PO HS [facility] Last Admin: 03/27/18 20:33 Dose: 40 mg Bisacodyl (Dulcolax) 5 mg PO DAILY PRN PRN Reason: Constipation Last Admin: 03/28/18 11:47 Dose: 5 mg Carvedilol (Coreg) 12.5 mg PO BID [facility] Last Admin: 03/28/18 08:49 Dose: 12.5 mg Cholecalciferol (Vitamin D3) 5,000 units PO DAILY [facility] Dextrose/Water (Dextrose 50%) 25 gm SLOW IVP PRN PRN PRN Reason: Hypoglycemia Donepezil HCl (Aricept) 10 mg PO HS [facility] Last Admin: 03/27/18 20:33 Dose: 10 mg Glipizide (Glucotrol) 5 mg PO DAILY [facility] Last Admin: 03/28/18 08:49 Dose: 5 mg Glucagon (Glucagon) 1 mg IM PRN PRN PRN Reason: Hypoglycemia Dextrose/Water (D5w) 1,000 mls @ 0 mls/hr IV .Q0M PRN; As Directed PRN Reason: Hypoglycemia Meropenem 1 gm/ Device 50 mls @ 100 mls/hr IVPB Q8HR [facility] Last Admin: 03/28/18 05:31 Dose: 50 mls Insulin Human Lispro (Humalog) 0 units SC .MILD SLIDING SCALE PRN PRN Reason: Mild Correctional Scale Last Admin: 03/28/18 11:40 Dose: 3 unit Levothyroxine Sodium (Synthroid) 125 mcg PO DAILY [facility] Last Admin: 03/28/18 08:49 Dose: 125 mcg Lisinopril (Zestril) 10 mg PO DAILY [facility] Last Admin: 03/28/18 08:50 Dose: 10 mg Melatonin (Melatonin) 9 mg PO HS [facility] Last Admin: 03/27/18 20:33 Dose: 9 mg Methotrexate Sodium (Methotrexate) 12.5 mg SC Q7DAYS [facility] Ondansetron HCl (Zofran Odt) 4 mg PO Q6H PRN PRN Reason: Nausea/Vomiting Last Admin: 03/27/18 11:33 Dose: 4 mg Oxybutynin Chloride (Ditropan) 5 mg PO DAILY [facility] Last Admin: 03/28/18 08:49 Dose: 5 mg Pantoprazole Sodium (Protonix) 40 mg PO DAILY [facility] Ciclopirox/Urea/Camph/Men/Euc [ Ciclopirox 8% Treatment Kit] 1 1 each TOP HS [facility] Polyethylene Glycol (Miralax) 17 gm PO DAILY [facility] Potassium Chloride (K-Dur) 40 meq PO NOW [facility] Stop: 03/28/18 13:00 Last Admin: 03/28/18 11:41 Dose: 40 meq Prednisone (Prednisone) 5 mg PO DAILY PRN PRN Reason: Joint Stiffness Sodium Chloride (Flush - Normal Saline) 10 ml IVF Q12HR [facility] Last Admin: 03/28/18 08:52 Dose: 10 ml Sodium Chloride (Flush - Normal Saline) 10 ml IVF PRN PRN PRN Reason: Saline Flush Tramadol HCl (Ultram) 50 mg PO Q8HR PRN PRN Reason: Pain
[2018-03-28] MEDS ORDERED: CICLOPIROX TOP SCH (21:00)
[2018-03-28] MEDS ORDERED: EUC TOP SCH (21:00)
[2018-03-28] MEDS ORDERED: MEN TOP SCH (21:00)
[2018-03-28] MEDS ORDERED: CAMPH TOP SCH (21:00)
[2018-03-28] MEDS ORDERED: UREA TOP SCH (21:00)
[2018-03-28] MEDS: Atorvastatin Calcium 40 MG TAB PO SCH (21:28)
[2018-03-28] MEDS: Donepezil HCl 10 MG TAB PO SCH (21:28)
[2018-03-28] MEDS: Melatonin 3 MG TAB PO SCH (21:28)
[2018-03-28] MEDS: Ondansetron ODT 4 MG TAB PO PRN (21:28)
[2018-03-29] MEDS: MEROPENEM 1 GM/50 ML 1 GM in Premix Bag 1 BAG IVPB SCH ×3 (06:17→15:43)
[2018-03-29] MEDS: glipiZIDE 5 MG TAB PO SCH (08:57)
[2018-03-29] MEDS: Lisinopril 10 MG TAB PO SCH (08:57)
[2018-03-29] MEDS: Pantoprazole 40 MG GRANULES PACKET PO SCH (08:58)
[2018-03-29] MEDS: Levothyroxine Sodium 125 MCG TAB PO SCH (08:58)
[2018-03-29] MEDS: Oxybutynin 5 MG TAB PO SCH (08:58)
[2018-03-29] MEDS: Carvedilol 6.25 MG TAB PO SCH ×2 (08:58→21:01)
[2018-03-29] MEDS: HumaLOG 300 UNITS/3 ML VIAL SC PRN (12:38)
[2018-03-29] MEDS: Polyethylene Glycol 3350 17 GM Packet PO SCH (12:45)
[2018-03-29 13:15] LABS: Prothrombin Time 13.4 SEC (12.0-14.7)
--- NOTE | 2018-03-29 16:38 | SPC ---
SONOGRAPHIC GUIDED RIGHT UPPER EXTREMITY PICC PLACEMENT: HISTORY: Urinary tract infection. TECHNIQUE: After explaining the procedure and answering all questions, the right upper extremity was prepped and draped in the usual sterile fashion. Sterile technique, buffered local anesthesia, sonographic guid ance, and a 22 gauge needle were used to carefully access the right basilic vein. Standard technique was then used to place the tip of a 5 [place] single lumen PICC so that the tip is at the level of th e cavoatrial junction. The catheter was flushed and secured externally. The patient tolerated the p rocedure well and was returned in an unchanged condition. IMPRESSION: Technically successful right upper extremity peripherally inserted central catheter placement. The c atheter is now ready for use. POS: MISTY
[2018-03-29] MEDS ORDERED: Heparin 1,000 UNITS/ML VIAL ONE (17:11)
--- NOTE | 2018-03-29 20:46 | PDOC.PN ---
- Subjective Encounter Start Date: 03/29/18 Encounter Start Time: 20:35 Subjective: f/u for E. coli bacteremia due to UTI on current Meropenem. s/p RUE PICC -: line placed today. Feels ok overall. - Objective Resuscitation Status: Resuscitation Status FULL:Full Resuscitation MAR Reviewed: Yes Vital Signs & Weight: Vital Signs (12 hours) Temp Pulse Pulse Pulse Resp BP BP 03/29/18 16:00 97.5 F L 76 18 03/29/18 12:00 98.2 F 70 20 03/29/18 09:15 82 83 145/81 H 03/29/18 08:58 155/80 H 03/29/18 08:57 155/80 H BP BP Pulse Ox 03/29/18 16:00 141/81 H 98 03/29/18 12:00 141/88 H 92 L 03/29/18 09:15 162/84 H 03/29/18 08:58 03/29/18 08:57 I&O: 03/28/18 03/29/18 03/30/18 06:59 06:59 06:59 Intake Total 949 207 5074 Output Total 1125 450 Balance -341 488 1050 Result Diagrams: 03/28/18 04:21 03/28/18 04:21 Additional Labs: Accuchecks 03/29/18 03/29/18 03/29/18 16:49 10:45 05:21 POC Glucose 124 H 231 H 145 H 03/28/18 21:07 POC Glucose 150 H Microbiology 03/24/18 19:55 Venous blood - Left Arm Blood Culture - Final Escherichia coli 03/24/18 19:40 Venous blood - Right Arm Blood Culture - Final Escherichia coli EKG Reviewed by me: Yes (Tele - V-paced) Phys Exam - Physical Examination Constitutional: NAD HEENT: PERRLA, sclera anicteric, oral pharynx no lesions Neck: no nodes, no JVD, supple, full ROM Respiratory: no wheezing, no rales, no rhonchi, clear to auscultation bilateral S1, S2 Cardiovascular: RRR, no significant murmur, no rub, gallop Gastrointestinal: soft, non-tender, no distention, positive bowel sounds Musculoskeletal: no edema, pulses present Neurological: normal sensation, moves all 4 limbs Psychiatric: normal affect, A&O x 3 Skin: no rash, normal turgor, cap refill <2 seconds Dx/Plan (1) Bacteremia Code(s): R78.81 - BACTEREMIA Status: Acute Comment: Plan for IV meropenem; PICC line placed 03/29/18; discharge on ertapenem or meropenem until 04/25/2017 (2) UTI (urinary tract infection) Status: Acute Comment: E. coli spp, see #1 above (3) Muscular deconditioning Code(s): R29.898 - OTH SYMPTOMS AND SIGNS INVOLVING THE MUSCULOSKELETAL SYSTEM Status: Chronic Comment: PT/OT for mobilization (4) CAD (coronary artery disease) Code(s): I25.10 - ATHSCL HEART DISEASE OF [place] CORONARY ARTERY W/O ANG PCTRS Status: Chronic Qualifiers: Coronary Disease-Associated Artery/Lesion type: [place] artery [place] vs. 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 use Diabetes mellitus complication status: with kidney complications Diabetes mellitus complication detail: with chronic kidney disease Chronic kidney disease stage: stage 2 (mild) Qualified Code(s): E11.22 - Type 2 diabetes mellitus with diabetic chronic kidney disease; N18.2 - Chronic kidney disease, stage 2 (mild); N18.2 - Chronic kidney disease, stage 2 (mild) Comment: continue accuchecks, insulin sliding scale, Glipizide 5mg daily - Plan continue antibiotics, PT/OT, social service liaison, out of bed/ambulate Stable overall -: Continue Meropenem IV until 04/25/18 -: CM for SNF option in [place] -: Continue ASA, Lipitor, Coreg -: Likely d/c to [facility] in am * .
[2018-03-29] MEDS: Atorvastatin Calcium 40 MG TAB PO SCH (21:01)
[2018-03-29] MEDS: Donepezil HCl 10 MG TAB PO SCH (21:02)
[2018-03-29] MEDS: Melatonin 3 MG TAB PO SCH (21:02)
[2018-03-30] MEDS: MEROPENEM 1 GM/50 ML 1 GM in Premix Bag 1 BAG IVPB SCH ×2 (00:30→08:48)
[2018-03-30] MEDS: glipiZIDE 5 MG TAB PO SCH (08:47)
[2018-03-30] MEDS: Lisinopril 10 MG TAB PO SCH (08:47)
[2018-03-30] MEDS: Carvedilol 6.25 MG TAB PO SCH (08:47)
[2018-03-30] MEDS: Levothyroxine Sodium 125 MCG TAB PO SCH (08:47)
[2018-03-30] MEDS: Pantoprazole 40 MG GRANULES PACKET PO SCH (08:47)
[2018-03-30] MEDS: Oxybutynin 5 MG TAB PO SCH (08:48)
[2018-03-30] MEDS: Polyethylene Glycol 3350 17 GM Packet PO SCH (08:48)
[2018-03-30] MEDS: HumaLOG 300 UNITS/3 ML VIAL SC PRN (11:23)
[2018-03-30 12:08] VITALS: BP 163/83; TEMP 98.1
--- NOTE | 2018-03-30 13:26 | DIS ---
DATE OF ADMISSION: 03/25/2018 DATE OF DISCHARGE: 03/30/2018 DISCHARGE DIAGNOSES: 1. Escherichia coli bacteremia secondary to urinary tract infection with Escherichia coli species. 2. Urinary tract infection with Escherichia coli species. 3. Diabetes mellitus type 2, stable. 4. Muscular deconditioning. 5. Coronary artery disease, chronic and stable. CONSULTATIONS: Dr. Sandhu with Infectious Disease service. PERTINENT LABS AND X-RAY FINDINGS: Creatinine ranged between 1.02-1.11. Estimated GFR ranged betwee n 47-52. Lactic acid level 1.3. LFTs within normal limits. CBC showed a white blood cell count ran ging between 6.7-10.0, hemoglobin ranged between 11.5-12.2. Blood cultures x2 from 03/24/2018 showed 2/[address] coli species. CT of the abdomen and pelvis dated 03/24/2018 showed mild right h ydronephrosis. No obstructive calculi. HOSPITAL COURSE: The patient was initially admitted after initially presenting with fever and concer n for urinary tract infection/pyelonephritis. The patient underwent CT imaging of the abdomen and pe lvis showing mild right hydronephrosis and the patient was initiated on IV antibiotic therapy with Ro cephin pending culture results. The patient was noted with 2/2 positive blood cultures for E. coli s pecies, at which point, the patient was evaluated by the Infectious Disease service. Recommendations were to transition to meropenem at which point the patient continued on 1 g IV q.8 hours. Due to th e patient's recurrent urinary tract infections and suspicion for urinary tract colonization, the nitza ent was recommended for long-term IV antibiotic treatment, at which point a right upper extremity PIC C line was placed on 03/29/2018. Current recommendations are to continue IV antibiotic therapy for a pproximately 4 weeks after discharge. Overall, the patient remained clinically stable throughout her hospital course with stable vital signs currently. I have examined the patient at the time of disch arge and discussed followup instructions. The patient verbalizes understanding and agreement and milton dy for transfer to intermediate facility in [place], [place] on 03/30/2018. DISCHARGE MEDICATIONS: 1. Aspirin enteric coated 81 mg 1 tab p.o. daily. 2. Lipitor 40 mg 1 tab p.o. at bedtime. 3. Dulcolax 5 mg p.o. daily. 4. Carvedilol 12.5 mg p.o. b.i.d. 5. Vitamin D3 5000 units p.o. daily. 6. Ciclopirox 8% 1 application topically at bedtime. 7. Aricept 10 mg p.o. at bedtime. 8. Enbrel 50 mg subcutaneously q.7 days. 9. Glipizide 5 mg 1 tablet p.o. daily. 10. Levothyroxine 125 mcg p.o. daily. 11. Lisinopril 10 mg p.o. daily. 12. Melatonin 10 mg p.o. at bedtime. 13. Meropenem 1 g IV q.8 hours until 04/25/2018. 14. Methotrexate 12.5 mg subcutaneously q.7 days. 15. Ditropan 5 mg p.o. daily. 16. Protonix 40 mg p.o. daily. 17. Prednisone 5 mg p.o. daily. 18. Tramadol 50 mg p.o. q.8 hours p.r.n. FOLLOWUP: The patient will follow up with her primary care provider, Ml Gordon after discharge. CONDITION ON DISCHARGE: Fair. ACTIVITY: Rolling walker with standby/contact guard assistance with high fall risk precautions. DIET: ADA. CODE STATUS: Full. DISPOSITION: Discharged to [facility] in [place], [place] 03/30/2018. Total time preparing and coordinating discharge, 34 minutes.
== END 2018-03-30 15:00 | DRG 690 ==
LOC: ERS 21:56 → IMCU/EMU 03-25 04:09 → 2SE 03-27 07:04
PROVIDERS: ADMIT Internal Medicine; ATTEND Internal Medicine
PROC: 02HV33Z Insertion of Infusion Device into Superior Vena Cava, Percutaneous Approach (ICD-10-PCS; principal; 2018-03-29)
DX: N12 Tubulo-interstitial nephritis, not specified as acute or chronic (principal); R78.81 Bacteremia; B96.20 Unspecified Escherichia coli [E. coli] as the cause of diseases classified elsewhere; F03.90 Unspecified dementia, unspecified severity, without behavioral disturbance, psychotic disturbance, mood disturbance, and anxiety; I25.10 Atherosclerotic heart disease of native coronary artery without angina pectoris; E11.22 Type 2 diabetes mellitus with diabetic chronic kidney disease; I12.9 Hypertensive chronic kidney disease with stage 1 through stage 4 chronic kidney disease, or unspecified chronic kidney disease; N18.2 Chronic kidney disease, stage 2 (mild); E78.5 Hyperlipidemia, unspecified; E03.9 Hypothyroidism, unspecified; Z16.12 Extended spectrum beta lactamase (ESBL) resistance; Z16.24 Resistance to multiple antibiotics; Z95.0 Presence of cardiac pacemaker; Z79.84 Long term (current) use of oral hypoglycemic drugs; Z79.82 Long term (current) use of aspirin; Z79.52 Long term (current) use of systemic steroids; Z88.1 Allergy status to other antibiotic agents; Z88.0 Allergy status to penicillin; Z98.1 Arthrodesis status
CPT/HCPCS: 36415; 36416; 36569; 74176; 80048; 80053; 83605; 85025; 85610; 96365; A4216; C1751; G8978-GP-CM; G8979-GP-CK; J0692; J1644; J2185; J7050; J9250; Q0162

== ENCOUNTER 2018-04-03 13:50 | Inpatient (IN) | payer MEDICARE ==
[~2018-04-03 13:50] MED LIST: ISOVUE-370 76%-LOCM 1 ML ONE
[2018-04-03 15:43] LABS: Mean Corpuscular Hemoglobin 32.5 pg (27.0-31.0); Mean Platelet Volume 7.3 fL (7.4-10.4); Platelet Count 231 thou/uL (130-400); RBC Distribution Width 14.4 % (11.5-14.5); Red Blood Cell (RBC) Count 3.69 mill/uL (4.20-5.40); White Blood Cell (WBC) Count 17.2 thou/uL (4.8-10.8)
[2018-04-03 16:01] LABS: ALT (SGPT) 17 U/L (8-55); AST (SGOT) 15 U/L (5-34); Albumin 3.6 g/dL (3.4-4.8); Alkaline Phosphatase 68 U/L (40-150); Anion Gap 18 mmol/L (10-20); BUN (Urea Nitrogen) 23 mg/dL (9.8-20.1); Bilirubin, Total 0.7 mg/dL (0.2-1.2); Calc. Creatinine Clearance 0 mL/min (70-130); Carbon Dioxide 21 mmol/L (23-31); Chloride 105 mmol/L (98-107); Estimated GFR-MDRD 47; Globulin 2.6 g/dL (2.4-3.5); Glucose 119 mg/dL (83-110); Potassium 4.6 mmol/L (3.5-5.1); Protein, Total 6.2 g/dL (6.0-8.3); Sodium 139 mmol/L (136-145)
[2018-04-03 16:04] LABS: Anisocytosis SLIGHT = 6-15 cells (100X) (0-5/hpf); Band 32 % (5-11); Lymphocytes 7 % (21-51); MDiff Complete? YES; Monocytes 2 % (0-10); Neutrophil 59 % (42-75); PLT Morphology Comment Appears Adequate
[2018-04-03 16:05] LABS: CKMB 0.5 ng/mL (0-6.6); Troponin I Less than 0.010 ng/mL (< 0.028)
--- NOTE | 2018-04-03 17:56 | CT ---
ABDOMEN AND PELVIS CT WITH CONTRAST: 04/03/18 CLINICAL HISTORY: Left lower quadrant pain, diarrhea. COMPARISON: CT abdomen and pelvis noncontrast, 03/25/18. FINDINGS: The bowel is incompletely assessed without enteric contrast administration. There is evidence of prio r cholecystectomy with associated reservoir effect. No free air or significant ascites. Scattered vas cular calcification is present. There is no focal hepatic or splenic lesion. Moderate hiatal hernia i s seen. No evidence of adrenal mass. Kidneys are unremarkable. No peripancreatic inflammation. There is parenchymal atrophy of the pancreas. Scattered interstitial opacities are seen at the bilateral lavonne ng bases likely related to chronic interstitial lung disease. Correlate clinically. Multiple calcifie d phleboliths are present within the pelvis. There is scattered atherosclerotic vascular disease. Mil d scattered colonic diverticula are seen. Nondilated fluid filled small bowel loops are present. IMPRESSION: 1. Interval resolution of the prior right mild hydronephrosis/hydroureter. 2. Moderate hiatal hernia. 3. Findings which likely relate to pulmonary fibrosis of the partially imaged lower lung zones. Correlate clinically. 4. Additional findings are detailed above. POS: MISTY
--- NOTE | 2018-04-03 18:55 | RAD ---
RADIOGRAPH CHEST 1 VIEW: Date: 04/03/18 Time: 5:58 p.m. HISTORY: 82-year-old female with fever and chest pain. COMPARISON: 03/24/18. FINDINGS: The lungs are better expanded on the current study. There is cardiomegaly. Diffusely prominent inters titial markings. Suture line at the right medial lower lung zone. New right sided PICC with distal ti p overlying the lower portion of the SVC. Again noted is the left subclavian dual lead pacemaker. No pneumothorax. Increased attenuation in the retrocardiac left lower lobe, nonspecific. This area was m ore dense and more obscured on the prior study. IMPRESSION: 1. Cardiomegaly. 2. Right sided peripheral inserted central catheter. 3. Pacemaker. 4. Nonspecific mild left lower lobe retrocardiac densities. Uncertain whether chronic or acute. Recommend followup. VALERIE [] POS: JIN
[2018-04-03 22:11] VITALS: BMI 33.0
[2018-04-03] MEDS ORDERED: Ondansetron HCl/PF 4 MG/2 ML Vial IVP PRN (23:12)
[2018-04-03] MEDS ORDERED: Acetaminophen 325 MG TAB PO PRN (23:12)
[2018-04-03] MEDS ORDERED: predniSONE 5 MG TAB PO PRN (23:13)
[2018-04-03] MEDS ORDERED: MEROPENEM IVPB SCH (23:59)
[2018-04-04] MEDS: Vancomycin HCl 1.25 GM in Sodium Chloride 0.9% 250 ML 250 ML IVPB SCH (00:32)
[2018-04-04] MEDS: traMADol HCl 50 MG TAB PO PRN (00:44)
[2018-04-04] MEDS: MEROPENEM 1 GM/50 ML 1 GM in Premix Bag 1 BAG IVPB SCH ×2 (00:44→11:31)
[2018-04-04] MEDS ORDERED: Dextrose 5% in Water 1,000 ML IV PRN (04:07)
[2018-04-04] MEDS ORDERED: Dextrose 50% Abboject 50 ML SYRINGE SLOW IVP PRN (04:07)
[2018-04-04 05:50] LABS: #Eosinphils 0.3 thou/uL (0.0-0.7); #Lymphocytes 2.8 thou/uL (1.20-3.40); #Monocytes 0.8 thou/uL (0.11-0.59); #Neutrophils 8.4 thou/uL (1.40-6.50); %Basophils 0.3 % (0.0-1.0); %Eosinophils 2.5 % (0.0-10.0); %Lymphocytes 22.4 % (21.0-51.0); %Monocytes 6.5 % (0.0-10.0); %Neutrophils 68.4 % (42.0-75.0); Hemoglobin 10.4 g/dL (12.0-16.0); Mean Corpuscular HGB CONC 33.4 g/dL (32.0-36.0); Mean Corpuscular Hemoglobin 31.5 pg (27.0-31.0); Mean Corpuscular Volume 94.2 fL (78.0-98.0); Mean Platelet Volume 7.5 fL (7.4-10.4); Platelet Count 207 thou/uL (130-400); RBC Distribution Width 14.6 % (11.5-14.5); Red Blood Cell (RBC) Count 3.29 mill/uL (4.20-5.40); White Blood Cell (WBC) Count 12.3 thou/uL (4.8-10.8)
[2018-04-04] MEDS: Levothyroxine Sodium 125 MCG TAB PO SCH (05:56)
[2018-04-04 06:16] LABS: Anion Gap 12 mmol/L (10-20); BUN (Urea Nitrogen) 20 mg/dL (9.8-20.1); Calc. Creatinine Clearance 53 mL/min (70-130); Calcium 8.8 mg/dL (7.8-10.44); Carbon Dioxide 25 mmol/L (23-31); Cardiac Risk 3.6 (Less than 4.5); Chloride 105 mmol/L (98-107); Cholesterol 91 mg/dl (< 200 Desired); Estimated GFR-MDRD 51; Glucose 113 mg/dL (83-110); HDL Cholesterol 25 mg/dL (>60 Neg Risk); LDL Cholesterol, Calculated 41 mg/dL; Potassium 4.2 mmol/L (3.5-5.1); Sodium 138 mmol/L (136-145); Triglycerides 126 mg/dL (Less than 150)
--- NOTE | 2018-04-04 07:52 | HP ---
CODE STATUS: FULL CODE. TIME OF EVALUATION: 9:15 p.m. PRIMARY CARE DOCTOR: Dr. Seda Jefferson. CHIEF COMPLAINT: Fever. HISTORY OF PRESENT ILLNESS: This is an 82-year-old female patient with past medical history of diabe get type 2, thyroid disease, hyperlipidemia, hypertension, came to the hospital after having fever in the custodial, have some headache. As noted, the patient had been seen in the ER about 1 week and half ago and the patient was released to a nursing facility to continue antibiotics in the nursing h ome. The patient also has associated nausea and vomiting. Symptoms was reported as moderate to lida re, no alleviating factors. REVIEW OF SYSTEMS: Constitutional: No fever or chills, generalized weakness. Respiratory: No coug h, sputum production, or shortness of breath. Cardiovascular: No chest pain, palpitation, or shortn ess of breath. Gastrointestinal: No nausea or vomiting. RN FLIGHT: No dizziness, headache, or feeling l ightheaded. Genitourinary: No burning with urination. Extremities: No leg swelling. PAST MEDICAL HISTORY: PPM, diabetes type 2, thyroid disease, hyperlipidemia, hypertension, osteoarth ritis. PAST SURGICAL HISTORY: Cardiac stent, right lower lobe lung surgery for removal of benign tumor, cho lecystectomy, laparoscopic hysterectomy, orthopedic surgery, laminectomy, back surgery, bilateral kne e replacement, thyroidectomy. PSYCHIATRIC HISTORY: No psych history. SOCIAL HISTORY: No alcohol. No drugs. No smoking history. FAMILY HISTORY: Reviewed and noncontributory for current presentation. KNOWN ALLERGIES: LEVOFLOXACIN, PENICILLIN. REPORTED MEDICATIONS: Protonix, Ditropan, Glucotrol, Zestril, [place], melatonin, Synthroid, Lipitor, Aricept, Ultram, ciclopirox, Deltasone, methotrexate, bisacodyl, Ecotrin, MiraLax, vitamin D3, Enbrel . PHYSICAL EXAMINATION: VITAL SIGNS: On presentation, blood pressure 130/77 with heart rate 90, respiratory rate was 15, tem perature 98.1, oxygen saturation 97 on room air. GENERAL APPEARANCE: The patient is alert, in no acute distress. HEENT: Eyes: Normal conjunctivae. Moist oral mucosa. Anicteric. NECK: No JVD. RESPIRATORY: Bilateral air entry. No rales, no wheezing. Symmetric expansion. CARDIOVASCULAR: Normal rate and regular rhythm. No murmurs. No gallop. No edema. ABDOMEN: Soft, normal bowel sounds. MUSCULOSKELETAL: Baseline range of motion and strength. No tenderness. SKIN: Warm and intact. No pallor, no rash, no redness. NEUROLOGIC: Baseline sensory. No evidence of new focal weakness. Baseline speech. Cranial nerves seemed to be intact. PSYCHIATRIC: The patient is in good mood. No anxiety, oriented, optimal judgment. LABORATORY DATA AND X-RAY FINDINGS: EKG, sinus rhythm with a first-degree AV block, with a rate of 9 4, AR 212, QRS 136, QT corrected 507, RBBB, left anterior bifascicular block. Chest x-ray: Cardiome charlene, right side, peripherally inserted central catheter pacemaker, nonspecific mid left lower lobe r etrocardiac densities chronic or acute. Recommend follow up. Labs were reviewed. The patient had white count 17.2, hemoglobin 12, MCV 93, platelet count 231. Coagulation was normal. Chemistry : Sodium 139, potassium 4.6, chloride 105, carbon dioxide 21, anion gap 18, BUN 23, creatinine 1.1, GFR 47, and glucose 119. Lactic acid 1.5, magnesium 1.7, phosphorus 2.9. Troponin was negative. La st urine on record was from 03/24, 3 weeks ago and was positive. Last blood culture was positive for Escherichia coli, ESBL positive. Sensitive to carbapenems. These blood cultures had been positive twice in the November and in February. ASSESSMENT AND PLAN: The patient will be placed in the hospital with following medical problems. 1. Recurrent Escherichia coli bacteremia, last blood culture positive on 03/24, ESBL producing Esche richia coli, the patient will be continued on Merrem, the patient has a history for multidrug resista nt organism, will be covered with vancomycin for now. Also, Dr. Beckett has been consulted, will follow ID recommendations. 2. As per report , the patient also has some neurological findings, agreement was to do a TIA w orkup, we will follow results. We will treat accordingly. 3. Urinary tract infection, UA done on the was positive, most likely a source for the infection . Treatment as above. 4. Sepsis. The patient presented with fever, the patient also has elevated white count, source is l ikely bacteremia, treatment as above. 5. Hyperglycemia. Blood sugar 118, due to uncontrolled diabetes, we will place the patient on a sli ding scale. 6. Uncontrolled hypertension, systolic blood pressure occasionally in the 90s, we will reconcile stephanie e meds, will not treat aggressively due to underlying sepsis. 7. Hyperlipidemia, reconcile home meds, low cholesterol diet is advised. 8. Hypothyroidism, continue hormone replacement. 9. History of rheumatoid arthritis, reconcile home medications.
[2018-04-04] MEDS: Lisinopril 10 MG TAB PO SCH (08:54)
[2018-04-04] MEDS: Oxybutynin 5 MG TAB PO SCH (08:54)
[2018-04-04] MEDS: Carvedilol 25 MG TAB PO SCH ×2 (08:54→22:01)
[2018-04-04] MEDS: Enoxaparin Sodium 30 MG/0.3 ML SYRINGE SC SCH (08:55)
--- NOTE | 2018-04-04 09:58 | ULT ---
ULTRASOUND DOPPLER DUPLEX CAROTID: Date: 04/04/18 HISTORY: 82-year-old female with TIA. TECHNIQUE: Color flow and spectral analysis of major arteries of neck. FINDINGS: There is mild plaque at the bilateral carotid bulbs, including bilateral proximal internal carotid ar harman origins and right external carotid artery. Highest peak systolic velocities in the internal carotid arteries are 65 cm/s on the right and 75 cm/ s on the left. ICA/CCA ratios are 0.7 on the right and 0.9 on the left. Vertebral artery flow is antegrade bilaterally. IMPRESSION: 1. No hemodynamically significant stenosis. 2. Mild atherosclerosis of bilateral carotid bulbs. POS: MISTY
--- NOTE | 2018-04-04 12:19 | PDOC.PN ---
- Subjective Encounter Start Date: 04/04/18 Encounter Start Time: 07:00 Pt seen for followup re: LLE weakness. Denies chest pain, shortness of breath , fevers or chills. LLE weakness improved. - Objective Resuscitation Status: Resuscitation Status FULL:Full Resuscitation MAR Reviewed: Yes Vital Signs & Weight: Vital Signs (12 hours) Temp Pulse Resp BP BP Pulse Ox 04/04/18 11:00 98.5 F 73 20 102/57 L 98 04/04/18 08:54 111/56 L 04/04/18 08:00 98.5 F 85 20 04/04/18 07:51 98.5 F 85 20 111/56 L 92 L 04/04/18 04:00 99.6 F 79 18 115/62 92 L I&O: 04/03/18 04/04/18 04/05/18 06:59 06:59 06:59 Intake Total 320 Balance 320 Result Diagrams: 04/04/18 05:39 04/04/18 05:39 Additional Labs: Accuchecks 04/04/18 04/04/18 10:48 05:51 POC Glucose 170 H 109 EKG Reviewed by me: Yes (Tele: NSR) Phys Exam - Physical Examination Constitutional: NAD HEENT: moist MMs, sclera anicteric, oral pharynx no lesions, 2+ tonsils Neck: no nodes, no JVD, supple, full ROM Respiratory: no wheezing, no rales, no rhonchi, clear to auscultation bilateral Cardiovascular: RRR, no rub S1, S2 Gastrointestinal: soft, non-tender, no distention, positive bowel sounds Neurological: non-focal, moves all 4 limbs Psychiatric: normal affect Deviation from normal: Oriented to person and place, not to time Dx/Plan (1) Weakness of left lower extremity Code(s): R29.898 - OTH SYMPTOMS AND SIGNS INVOLVING THE MUSCULOSKELETAL SYSTEM Status: Acute Comment: Improved, workup in progress (2) Bacteremia Code(s): R78.81 - BACTEREMIA Status: Chronic Comment: continue IV meropenem for MDR E. coli (3) CAD (coronary artery disease) Code(s): I25.10 - ATHSCL HEART DISEASE OF [place] CORONARY ARTERY W/O ANG PCTRS Status: Chronic Qualifiers: Coronary Disease-Associated Artery/Lesion type: [place] artery [place] vs. 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 Diabetes mellitus complication status: with kidney complications Diabetes mellitus complication detail: with chronic kidney disease Chronic kidney disease stage: stage 2 (mild) Qualified Code(s): E11.22 - Type 2 diabetes mellitus with diabetic chronic kidney disease; N18.2 - Chronic kidney disease, stage 2 (mild); N18.2 - Chronic kidney disease, stage 2 (mild) Comment: on accuchecks, insulin sliding scale (6) Dyslipidemia Code(s): E78.5 - HYPERLIPIDEMIA, UNSPECIFIED Status: Chronic Comment: continue statin (7) Hypothyroidism Code(s): E03.9 - HYPOTHYROIDISM, UNSPECIFIED Status: Chronic Qualifiers: Hypothyroidism type: unspecified Qualified Code(s): E03.9 - Hypothyroidism , unspecified Comment: continue synthroid - Plan * . Review of Systems - Review of Systems Constitutional: weakness. negative: fever, chills, sweats, malaise Respiratory: negative: Cough, Shortness of Breath, SOB with Excertion, Pleuritic Pain, Wheezing Cardiovascular: negative: chest pain, palpitations, orthopnea, paroxysmal nocturnal dyspnea, edema, light headedness Gastrointestinal: negative: Nausea, Vomiting, Abdominal Pain, Diarrhea, Constipation, Melena, Hematochezia Genitourinary: negative: Dysuria, Frequency, Incontinence, Hematuria, Retention Skin: negative: Rash, Lesions, Sunday, Bruising - Medications/Allergies Allergies/Adverse Reactions: Allergies Allergy/AdvReac Type Severity Reaction Status Date / Time levofloxacin [From Levaquin] Allergy Rash Verified 04/03/18 19:23 Penicillins Allergy Rash Verified 04/03/18 19:23 Medications: Current Medications Acetaminophen (Tylenol) 650 mg PO Q4H PRN PRN Reason: Headache/Fever or Pain Aspirin (Aspirin Chewable) 81 mg PO DAILY [facility]IN[facility] Last Admin: 04/04/18 08:54 Dose: 81 mg Atorvastatin Calcium (Lipitor) 40 mg PO [facility] Bisacodyl (Dulcolax) 5 mg PO DAILY PRN PRN Reason: Constipation Carvedilol (Coreg) 12.5 mg PO BID [facility] Last Admin: 04/04/18 08:54 Dose: 12.5 mg Dextrose/Water (Dextrose 50%) 25 gm SLOW IVP PRN PRN PRN Reason: Hypoglycemia Donepezil HCl (Aricept) 10 mg PO [facility] Enoxaparin Sodium (Lovenox) 30 mg SC 0900 [facility] Last Admin: 04/04/18 08:55 Dose: 30 mg Glucagon (Glucagon) 1 mg IM PRN PRN PRN Reason: Hypoglycemia Meropenem 1 gm/ Device 50 mls @ 100 mls/hr IVPB 1200,2359 [facility] Last Admin: 04/04/18 11:31 Dose: 50 mls Vancomycin HCl 1.25 gm/ Sodium (Chloride) 250 mls @ 166.667 mls/hr IVPB 2359 [facility] Last Admin: 04/04/18 00:32 Dose: Not Given Dextrose/Water (D5w) 1,000 mls @ 0 mls/hr IV .Q0M PRN; As Directed PRN Reason: Hypoglycemia Insulin Human Lispro (Humalog) 0 units SC .MILD SLIDING SCALE PRN PRN Reason: Mild Correctional Scale Levothyroxine Sodium (Synthroid) 125 mcg PO 0600 [facility] Last Admin: 04/04/18 05:56 Dose: 125 mcg Lisinopril (Zestril) 10 mg PO DAILY [facility] Last Admin: 04/04/18 08:54 Dose: 10 mg Melatonin (Melatonin) 9 mg PO [facility] Miscellaneous Medication (Pharmacy To Dose) 1 each IVPB ONE PRN PRN Reason: Pharmacy to dose Stop: 04/13/18 18:04 Ondansetron HCl (Zofran) 4 mg IVP Q6H PRN PRN Reason: Nausea/Vomiting Oxybutynin Chloride (Ditropan) 5 mg PO DAILY [facility] Last Admin: 04/04/18 08:54 Dose: 5 mg Pantoprazole Sodium (Protonix) 40 mg PO DAILY [facility] Last Admin: 04/04/18 08:54 Dose: 40 mg Prednisone (Prednisone) 5 mg PO DAILY PRN PRN Reason: Joint Stiffness Tramadol HCl (Ultram) 50 mg PO Q8H PRN PRN Reason: Pain Last Admin: 04/04/18 00:44 Dose: 50 mg
[2018-04-04] MEDS: HumaLOG 300 UNITS/3 ML VIAL SC PRN (12:36)
--- NOTE | 2018-04-04 13:26 | CON ---
DATE OF CONSULTATION: 04/04/2018 CHIEF COMPLAINT: Left leg weakness. HISTORY OF PRESENT ILLNESS: The patient is an 82-year-old right-handed lady. She was brought to the ER from a senior living because of fever, nausea, vomiting, and she has a urinary tract infection and she was seen in the ER about a couple of weeks ago where she was released to the senior living with a ntibiotics via PICC line. The patient had fever, nausea, and vomiting and also developed left lower extremity weakness and was sent to the hospital. PREVIOUS MEDICAL HISTORY: Diabetes, thyroid disorder, hyperlipidemia, hypercholesterolemia, hyperten kole, and osteoarthritis. SURGICAL HISTORY: She had a cardiac stent, right lower lobe lung surgery for benign tumor removal, c holecystectomy, hysterectomy, bilateral knee replacements, laminectomy and thyroidectomy. SOCIAL HISTORY: She lives at a senior living. ALLERGIES: She is allergic to LEVOFLOXACIN and PENICILLIN. MEDICATIONS AT HOME: She is on Protonix, Ditropan, Glucotrol, Zestril, [place], melatonin, Synthroid, Lipitor, Aricept, Ultram, ciclopirox, Deltasone, methotrexate, bisacodyl, aspirin 81 mg per day, Luciana Lax, vitamin D3 and Enbrel. FAMILY HISTORY: Positive for stroke in both her parents. REVIEW OF SYSTEMS: PULMONARY: Normal. No shortness of breath or cough. CARDIAC: No palpitations or chest pain. GASTROINTESTINAL: Positive for nausea. GENITOURINARY: Positive for urinary infecti on recently and urosepsis. DERMATOLOGIC: Normal. NEUROLOGIC: Positive for left leg weakness. LABORATORY DATA AND IMAGING DATA: Current laboratory data, white count 12.3, hemoglobin 10.4, hemato crit 31, platelets 207. Chemistries: Sodium 138, potassium 4.2, chloride 105, bicarbonate 25, BUN 2 0, creatinine 1.04, triglycerides 126, cholesterol 91, LDL 41, HDL 25. Her carotid Doppler did not s how any hemodynamically significant stenosis and her CT of the head which was performed on 04/03/2018 shows atrophy and chronic ischemic changes in the deep white matter and there may be a tiny lacunar infarct in the right subinsular area which is not new and no findings of acute stroke and there is mo derate ventricular enlargement, compatible with the atrophy. PHYSICAL EXAMINATION: VITAL SIGNS: Blood pressure 102/57, temperature 98.5, pulse 73, respiratory rate 20. GENERAL APPEARANCE: Very pleasant lady who is comfortable in bed. CHEST: Clear vesicular breathing. CARDIOVASCULAR: S1, S2 heard, no murmurs. ABDOMEN: Soft and nontender. NEUROLOGICAL: Higher intellectual functions, normal orientation to time, place, person and appropria te conversation. Cranial nerves II-XII, normal extraocular movements. Pupils are reactive to light. No facial asymmetry, normal sensation of face. Normal hearing to finger rub. Palate elevates norm ally. Tongue midline, no atrophy noted. Motor exam: Bulk normal, tone normal, strength 5/5 in uppe r and lower extremities bilaterally and she had left lower extremity weakness with strength of 3/5 in the left lower extremity. Muscle groups tested; iliopsoas, hamstrings, quadriceps, ankle dorsiflexi on, plantar flexion, deltoid, biceps, triceps, wrist extension and flexion, finger extension and flex ion bilaterally. CEREBELLAR: Normal [id number], zfam-jy-lxbo, and gait on the side. Normal [id number]-bk-[id number] on the left side and kyck-os-ixpw cannot be tested in the left side. SENSORY: Normal touch, proprioception and temperature bilaterally. IMPRESSION: The patient is an 82-year-old lady with acute left side lower extremity weakness. Rest of the neurological examination is normal. Likely this is due to another lacunar infarct, probably i nvolving the right frontal lobe. At this time, we are unable to obtain an MRI due to her pacemaker. RECOMMENDATIONS: Please increase aspirin to 325 mg per day since she used to take 81 mg of aspirin a t home. Continue Lipitor for now. She will need physical therapy as well. Please call Neurology if you have any further questions.
--- NOTE | 2018-04-04 19:18 | CON ---
DATE OF CONSULTATION: 04/04/2018 REASON FOR CONSULTATION: Readmission following recent treatment for a UTI with ESBL gram-negative gina. HISTORY OF PRESENT ILLNESS: An 82-year-old whom I had seen recently at the end of February when she presented with a history of type 2 diabetes, coronary artery disease with a pacemaker, prior thoracic lumbar spine fusion with instrumentation and worsening functional capacity. The patient also has dementia. She was diagnosed with recrudescence of previous UTI. This was felt to be secondary to the use of nitrofurantoin for management of the earlier urinary tract infection. This agent usually is not recommended for management of invasive UTIs because of poor tissue penetration. The same E. coli was noted with the same susceptibility profile which was an ESBL type of organism. PICC line was placed and she was transferred to a alf with meropenem. I spoke with the alf staff and according to them, the family was not satisfied with the treatment there. I spoke with the family members and they were suspicious that the patient somehow was not receiving the antimicrobials. They demanded that the patient be readmitted to the hospital and be transferred to a different setting for continuation of therapy. Reportedly, patient had some elements of vomiting and some liquid stool in the alf and T-max was 99.2. Currently, Ms. Hinson is feeling well. She has not had further diarrhea. Because of her cognitive issues, the reliability of her subjective account is limited. She denies any headaches, no visual symptoms, sore throat, odynophagia, dysphagia, no more vomiting, no back pain. No shortness of breath or cough, no abdominal pain and she is voiding without difficulty. PAST MEDICAL HISTORY: Type 2 diabetes, hypertension, hypothyroidism, coronary artery disease, pacemaker, polyarthralgias, possible psoriasis, prior UTI with pyelonephritis and recent recrudescence of UTI with the same organism, pyelonephritis. PICC line placement and she was in the middle of the treatment with meropenem. The intention was of total of 4-week course of therapy which will be completed at the end of March. ALLERGIES: LEVOFLOXACIN, PENICILLIN with rash. CURRENT MEDICATIONS: Include aspirin, Lipitor, Dulcolax, Coreg, dextrose, Aricept, Lovenox, glucagon, Synthroid, insulin, Zestril, melatonin, meropenem, ondansetron, prednisone 5 mg daily, vancomycin. PHYSICAL EXAMINATION: VITAL SIGNS: T-max 99.9, blood pressure 102/57, pulse 73, respirations 20, O2 sat 98%. SKIN: Unremarkable except for the PICC line in right upper extremity PICC line and have any inflammatory changes noticeable. No lymphadenopathy. HEENT: Ocular movements conjugate. Oral cavity moist. NECK: Supple. LUNGS: Symmetric clear breath sounds. HEART: S1, S2, regular rate. No S3 or S4. ABDOMEN: Soft, not distended or tender. No ascites. No bladder distention. EXTREMITIES: No joint inflammatory activity. She moves extremities on command. NEUROLOGIC: She is awake, knows her name. She knew that she was in the hospital, can tell me the name of the hospital, did not know the date. LABORATORY DATA: The white cell count 17.2 and now 12.3, hemoglobin was 12 and now 10, platelets 231 and 207, 60% neutrophils. She had 32% bands on arrival and chemistry with sodium 139, creatinine 1.12. Transaminases normal, bilirubin 2.7, albumin 3.6. Two sets of blood cultures thus far no growth. They have not yet been able to obtain a stool sample yet. The previous imaging studies include an abdomen and pelvis CT from 04/03/2018 which showed interval resolution of mild hydronephrosis and hydroureter, moderate hiatal hernia and possible early pulmonary fibrosis. A nondilated fluid-filled small bowel loops with no odor noticeable. ASSESSMENT: 1. Type 2 diabetes, hypertension, recrudescence of pyelonephritis, recently treated with meropenem and transition to outpatient meropenem in the alf to be completed by the end of March through a PICC line. 2. Recrudescence of nausea with some diarrhea. 3. Neutrophilia with bandemia. DISCUSSION: Differential diagnosis includes C. difficile colitis versus antibiotic-associated diarrhea. An alternate intraabdominal inflammatory process appears to be less likely. Colonization of the PICC line will be checked with the blood cultures that have been obtained. I would recommend maintaining the same line for the time being until final results of cultures. If these are negative, then I would assume that the PICC line is okay. My main suspicion is that she has developed colitis from C. difficile. We will have to follow that with stool tests once those become available. Thromboembolism would be another concern that is not high in the differential not high in the differential diagnosis. MTDD
[2018-04-04] MEDS: Donepezil HCl 10 MG TAB PO SCH (22:01)
[2018-04-04] MEDS: Atorvastatin Calcium 40 MG TAB PO SCH (22:01)
[2018-04-04] MEDS: Melatonin 3 MG TAB PO SCH (22:01)
[2018-04-05] MEDS: MEROPENEM 1 GM/50 ML 1 GM in Premix Bag 1 BAG IVPB SCH ×3 (00:32→23:00)
[2018-04-05] MEDS: Vancomycin HCl 1.25 GM in Sodium Chloride 0.9% 250 ML 250 ML IVPB SCH (01:13)
[2018-04-05 04:46] LABS: Cardiac Risk 2.2 (Less than 4.5)
[2018-04-05 05:13] LABS: Vancomycin, Trough 18.5 ug/mL
[2018-04-05] MEDS: Levothyroxine Sodium 125 MCG TAB PO SCH (05:35)
[2018-04-05] MEDS: HumaLOG 300 UNITS/3 ML VIAL SC PRN ×3 (06:40→17:13)
[2018-04-05] MEDS: Aspirin 325 MG TAB PO SCH (08:55)
[2018-04-05] MEDS: Lisinopril 10 MG TAB PO SCH (08:55)
[2018-04-05] MEDS: Oxybutynin 5 MG TAB PO SCH (08:56)
[2018-04-05] MEDS: Carvedilol 25 MG TAB PO SCH ×2 (08:56→20:33)
[2018-04-05] MEDS: Enoxaparin Sodium 30 MG/0.3 ML SYRINGE SC SCH (08:57)
[2018-04-05] MEDS: Bisacodyl 5 MG TAB PO PRN (11:29)
[2018-04-05] MEDS: Vancomycin HCl 1.5 GM in Sodium Chloride 0.9% 250 ML 300 ML IVPB SCH (12:14)
--- NOTE | 2018-04-05 13:02 | PQF ---
DATE: 04-05-18 ATTN: DR. BERTHA CONCEPCION Please exercise your independent, professional judgment in responding to the clarification form. Clinical indicators are provided on the bottom of this form for your review Please check appropriate box(es): [ ] Sepsis due to: ( UTI, etc.) Due to: [ ] Device (please specify) [ ] SIRS due to non-infectious process (please specify etiology) [ ] with organ dysfunction [ ] without organ dysfunction [ ] Severe sepsis with acute organ dysfunction of: (Examples: LACUNAR INFARCT, other) [ ] Localized infection without sepsis [ ] Other diagnosis [ ] Unable to determine In addition, please specify: Present on Admission (POA): [ ] Yes [ ] No [ ] Unable to determine For continuity of documentation, please document condition throughout progress notes and discharge summary. Thank You. CLINICAL INDICATORS - SIGNS / SYMPTOMS / LABS ER: ACUTE CVA VS TIA, BANDEMIA, SEPSIS, UTI ER: FEVER, HX OF SEPSIS, DM 2, HTN H&P: RECURRENT E COLI BACTEREMIA, UTI, MOST LIKELY A SOURCE FOR THE INFECTION, SEPSIS. THE PT PRESENTED WITH FEVER, THE PT ALSO HAS ELEVATED WBC, SOURCE IS LIKELY BACTEREMIA TEMP: 04-03-18: 99.9, 99.9 ER: NURSING FACILITY REPORTS PT HAS FEVER AND N/V TODAY BP: ER: 94/64, 99/46 WBC: 04-03-16: 17.2, 04-04-18: 12.3 BANDS: 04-03-18: 32 RISK FACTORS: H&P: RECURRENT E COLI BACTEREMIA, UTI, MOST LIKELY A SOURCE FOR THE INFECTION, SEPSIS. THE PT PRESENTED WITH FEVER, THE PT ALSO HAS ELEVATED WBC, SOURCE IS LIKELY BACTEREMIA ADVANCED AGE TREATMENTS: MAR: 8-4-18: MEROPENEM, VANCOMYCIN INFECTIOUS DISEASE CONSULT 04-04-18 (This form is maintained as a part of the permanent medical record) 2014 [employer]. All Rights Reserved DULCE [email or web address] Office: [phone] [facility] SYSTEM[facility]
--- NOTE | 2018-04-05 19:10 | PDOC.PN ---
- Subjective Encounter Start Date: 04/05/18 Encounter Start Time: 11:00 Pt seen for followup re: UTI. Feels better. Denies any complaints. - Objective Resuscitation Status: Resuscitation Status FULL:Full Resuscitation Vital Signs & Weight: Vital Signs (12 hours) Temp Pulse Pulse Pulse Resp BP BP 04/05/18 15:49 97.8 F 69 12 04/05/18 11:45 98.9 F 74 20 04/05/18 08:55 147/95 H 04/05/18 08:50 81 152/84 H 04/05/18 08:12 82 81 147/95 H 04/05/18 08:00 98.2 F 84 20 04/05/18 07:54 98.2 F 84 20 BP BP Pulse Ox 04/05/18 15:49 159/86 H 93 L 04/05/18 11:45 137/71 93 L 04/05/18 08:55 04/05/18 08:50 04/05/18 08:12 152/84 H 04/05/18 08:00 04/05/18 07:54 147/95 H 93 L I&O: 04/04/18 04/05/18 04/06/18 06:59 06:59 06:59 Intake Total 20440 Balance 2044 2220 Result Diagrams: 04/04/18 05:39 04/04/18 05:39 Additional Labs: Accuchecks 04/05/18 04/05/18 04/05/18 16:48 11:12 05:28 POC Glucose 173 H 218 H 156 H 04/04/18 04/04/18 21:32 17:03 POC Glucose 173 H 141 H Phys Exam - Physical Examination Constitutional: NAD HEENT: moist MMs, sclera anicteric, oral pharynx no lesions, 2+ tonsils Neck: no nodes, no JVD, supple, full ROM Respiratory: no wheezing, no rales, no rhonchi, clear to auscultation bilateral Cardiovascular: RRR, no rub S1, S2 Gastrointestinal: soft, non-tender, no distention, positive bowel sounds Neurological: moves all 4 limbs Psychiatric: normal affect Deviation from normal: Oriented to person, place, not to time Skin: no rash Dx/Plan (1) Sepsis Code(s): A41.9 - SEPSIS, UNSPECIFIED ORGANISM Status: Acute Comment: Improving, likely secondary to bacteremia, continue IV meropenem and vancomycin Present on admission (2) Bacteremia Code(s): R78.81 - BACTEREMIA Status: Chronic Comment: continue IV meropenem (3) CAD (coronary artery disease) Code(s): I25.10 - ATHSCL HEART DISEASE OF [place] CORONARY ARTERY W/O ANG PCTRS Status: Chronic Qualifiers: Coronary Disease-Associated Artery/Lesion type: [place] artery [place] vs. transplanted heart: [place] heart Associated angina: without angina Qualified Code(s): I25.10 - Atherosclerotic heart disease of [place] coronary artery without angina pectoris Comment: stable (4) Dementia Code(s): F03.90 - UNSPECIFIED DEMENTIA WITHOUT BEHAVIORAL DISTURBANCE Status: Chronic Qualifiers: Dementia type: unspecified type Comment: stable (5) Diabetes mellitus Code(s): E11.9 - TYPE 2 DIABETES MELLITUS WITHOUT COMPLICATIONS Status: Chronic Qualifiers: Diabetes mellitus type: type 2 Diabetes mellitus halfway insulin use: without halfway use Diabetes mellitus complication status: with kidney complications Diabetes mellitus complication detail: with chronic kidney disease Chronic kidney disease stage: stage 2 (mild) Qualified Code(s): E11.22 - Type 2 diabetes mellitus with diabetic chronic kidney disease; N18.2 - Chronic kidney disease, stage 2 (mild); N18.2 - Chronic kidney disease, stage 2 (mild) Comment: continue accuchecks, insulin sliding scale (6) Dyslipidemia Code(s): E78.5 - HYPERLIPIDEMIA, UNSPECIFIED Status: Chronic Comment: continue statin (7) Hypothyroidism Code(s): E03.9 - HYPOTHYROIDISM, UNSPECIFIED Status: Chronic Qualifiers: Hypothyroidism type: unspecified Qualified Code(s): E03.9 - Hypothyroidism , unspecified Comment: on synthroid (8) Weakness of left lower extremity Code(s): R29.898 - OTH SYMPTOMS AND SIGNS INVOLVING THE MUSCULOSKELETAL SYSTEM Status: Resolved - Plan * . Review of Systems - Review of Systems Constitutional: weakness. negative: fever, chills, sweats, malaise Cardiovascular: negative: chest pain, palpitations, orthopnea, paroxysmal nocturnal dyspnea, edema, light headedness Gastrointestinal: negative: Nausea, Vomiting, Abdominal Pain, Diarrhea, Constipation, Melena, Hematochezia Genitourinary: negative: Dysuria, Frequency, Incontinence, Hematuria, Retention Skin: negative: Rash, Lesions, Sunday, Bruising Neurological: Weakness. negative: Numbness, Incoordination, Change in Speech, Confusion, Seizures - Medications/Allergies Allergies/Adverse Reactions: Allergies Allergy/AdvReac Type Severity Reaction Status Date / Time levofloxacin [From [facility]kaiser [facility]] Allergy Rash Verified 04/03/18 19:23 Penicillins Allergy Rash Verified 04/03/18 19:23 Medications: Current Medications Acetaminophen (Tylenol) 650 mg PO Q4H PRN PRN Reason: Headache/Fever or Pain Aspirin (Aspirin) 325 mg PO DAILY [facility] Last Admin: 04/05/18 08:55 Dose: 325 mg Atorvastatin Calcium (Lipitor) 40 mg PO HS [facility] Last Admin: 04/04/18 22:01 Dose: 40 mg Bisacodyl (Dulcolax) 5 mg PO DAILY PRN PRN Reason: Constipation Last Admin: 04/05/18 11:29 Dose: 5 mg Carvedilol (Coreg) 12.5 mg PO BID [facility] Last Admin: 04/05/18 08:56 Dose: 12.5 mg Dextrose/Water (Dextrose 50%) 25 gm SLOW IVP PRN PRN PRN Reason: Hypoglycemia Donepezil HCl (Aricept) 10 mg PO HS [facility] Last Admin: 04/04/18 22:01 Dose: 10 mg Enoxaparin Sodium (Lovenox) 30 mg SC 0900 [facility] Last Admin: 04/05/18 08:57 Dose: 30 mg Glucagon (Glucagon) 1 mg IM PRN PRN PRN Reason: Hypoglycemia Meropenem 1 gm/ Device 50 mls @ 100 mls/hr IVPB 1200,2359 [facility] Last Admin: 04/05/18 11:29 Dose: 50 mls Dextrose/Water (D5w) 1,000 mls @ 0 mls/hr IV .Q0M PRN; As Directed PRN Reason: Hypoglycemia Vancomycin HCl 1.5 gm/ Sodium (Chloride) 300 mls @ 200 mls/hr IVPB 1200 [facility] Last Admin: 04/05/18 12:14 Dose: 300 mls Insulin Human Lispro (Humalog) 0 units SC .MILD SLIDING SCALE PRN PRN Reason: Mild Correctional Scale Last Admin: 04/05/18 17:13 Dose: 2 unit Levothyroxine Sodium (Synthroid) 125 mcg PO 0600 [facility] Last Admin: 04/05/18 05:35 Dose: 125 mcg Lisinopril (Zestril) 10 mg PO DAILY [facility] Last Admin: 04/05/18 08:55 Dose: 10 mg Melatonin (Melatonin) 9 mg PO HS [facility] Last Admin: 04/04/18 22:01 Dose: 9 mg Miscellaneous Medication (Pharmacy To Dose) 1 each IVPB ONE PRN PRN Reason: Pharmacy to dose Stop: 04/13/18 18:04 Ondansetron HCl (Zofran) 4 mg IVP Q6H PRN PRN Reason: Nausea/Vomiting Oxybutynin Chloride (Ditropan) 5 mg PO DAILY [facility] Last Admin: 04/05/18 08:56 Dose: 5 mg Pantoprazole Sodium (Protonix) 40 mg PO DAILY [facility] Last Admin: 04/05/18 08:56 Dose: 40 mg Prednisone (Prednisone) 5 mg PO DAILY PRN PRN Reason: Joint Stiffness Tramadol HCl (Ultram) 50 mg PO Q8H PRN PRN Reason: Pain Last Admin: 04/04/18 00:44 Dose: 50 mg
[2018-04-05] MEDS: Donepezil HCl 10 MG TAB PO SCH (20:33)
[2018-04-05] MEDS: Melatonin 3 MG TAB PO SCH (20:33)
[2018-04-05] MEDS: Atorvastatin Calcium 40 MG TAB PO SCH (20:33)
[2018-04-05] MEDS: traMADol HCl 50 MG TAB PO PRN (23:01)
[2018-04-06 04:16] LABS: Bilirubin Negative (Negative); Blood, Urine Negative (Negative); Clarity CLEAR (Clear); Glucose, Urine (Dipstick) Negative (Negative); Leukocyte Negative (Negative); Nitrite Negative (Negative); Protein, Urine (Dipstick) Negative (Neg-Trace); Specific Gravity, Urine 1.006 (1.002-1.036); Urobilinogen 0.2 mg/dL (0.2-1.0)
[2018-04-06] MEDS: Levothyroxine Sodium 125 MCG TAB PO SCH (05:09)
[2018-04-06] MEDS: Aspirin 325 MG TAB PO SCH (08:34)
[2018-04-06] MEDS: Lisinopril 10 MG TAB PO SCH (08:34)
[2018-04-06] MEDS: Oxybutynin 5 MG TAB PO SCH (08:35)
[2018-04-06] MEDS: Carvedilol 25 MG TAB PO SCH ×2 (08:35→21:42)
[2018-04-06] MEDS: Enoxaparin Sodium 30 MG/0.3 ML SYRINGE SC SCH (08:35)
[2018-04-06 08:46] LABS: #Basophils 0.1 thou/uL (0.0-0.2); #Eosinphils 0.3 thou/uL (0.0-0.7); #Lymphocytes 2.2 thou/uL (1.20-3.40); #Monocytes 0.7 thou/uL (0.11-0.59); #Neutrophils 4.1 thou/uL (1.40-6.50); %Basophils 0.9 % (0.0-1.0); %Eosinophils 4.6 % (0.0-10.0); %Lymphocytes 29.6 % (21.0-51.0); %Monocytes 9.6 % (0.0-10.0); %Neutrophils 55.3 % (42.0-75.0); Hemoglobin 11.1 g/dL (12.0-16.0); Mean Corpuscular HGB CONC 33.6 g/dL (32.0-36.0); Mean Corpuscular Hemoglobin 31.4 pg (27.0-31.0); Mean Corpuscular Volume 93.4 fL (78.0-98.0); Mean Platelet Volume 7.4 fL (7.4-10.4); Platelet Count 228 thou/uL (130-400); Red Blood Cell (RBC) Count 3.54 mill/uL (4.20-5.40); White Blood Cell (WBC) Count 7.4 thou/uL (4.8-10.8)
[2018-04-06 08:55] LABS: Anion Gap 16 mmol/L (10-20); BUN (Urea Nitrogen) 12 mg/dL (9.8-20.1); Calc. Creatinine Clearance 57 mL/min (70-130); Calcium 9.5 mg/dL (7.8-10.44); Carbon Dioxide 26 mmol/L (23-31); Chloride 103 mmol/L (98-107); Estimated GFR-MDRD 56; Glucose 175 mg/dL (83-110); Sodium 141 mmol/L (136-145)
[2018-04-06] MEDS: MEROPENEM 1 GM/50 ML 1 GM in Premix Bag 1 BAG IVPB SCH ×2 (11:32→23:30)
[2018-04-06] MEDS: HumaLOG 300 UNITS/3 ML VIAL SC PRN ×3 (11:37→21:45)
--- NOTE | 2018-04-06 11:56 | PDOC.PN ---
- Subjective Encounter Start Date: 04/06/18 Encounter Start Time: 07:20 Pt seen for followup re: bacteremia. Denies chest pain, shortness of breath, fevers or chills. Feels better. - Objective Resuscitation Status: Resuscitation Status FULL:Full Resuscitation MAR Reviewed: Yes Vital Signs & Weight: Vital Signs (12 hours) Temp Pulse Pulse Pulse Resp BP BP 04/06/18 11:32 98.6 F 72 20 04/06/18 08:41 72 72 175/78 H 04/06/18 08:34 170/88 H 04/06/18 08:00 98.3 F 73 20 04/06/18 07:59 98.3 F 73 20 04/06/18 03:00 97.5 F L 77 18 BP BP Pulse Ox 04/06/18 11:32 144/73 H 95 04/06/18 08:41 177/84 H 04/06/18 08:34 04/06/18 08:00 04/06/18 07:59 170/88 H 94 L 04/06/18 03:00 165/86 H 93 L I&O: 04/05/18 04/06/18 04/07/18 06:59 06:59 06:59 Intake Total 2045 2520 300 Output Total 1000 Balance 2045 1520 300 Result Diagrams: 04/06/18 08:32 04/06/18 08:32 Additional Labs: Accuchecks 04/06/18 04/06/18 04/05/18 10:52 05:54 22:05 POC Glucose 272 H 139 H 173 H 04/05/18 16:48 POC Glucose 173 H EKG Reviewed by me: Yes (Tele: NSR) Phys Exam - Physical Examination Constitutional: NAD HEENT: moist MMs Neck: supple Respiratory: clear to auscultation bilateral Cardiovascular: RRR Gastrointestinal: soft Neurological: moves all 4 limbs Psychiatric: normal affect Dx/Plan (1) Bacteremia Code(s): R78.81 - BACTEREMIA Status: Chronic Comment: continue IV meropenem and vancomycin, follow blood cultures. (2) CAD (coronary artery disease) Code(s): I25.10 - ATHSCL HEART DISEASE OF [place] CORONARY ARTERY W/O ANG PCTRS Status: Chronic Qualifiers: Coronary Disease-Associated Artery/Lesion type: [place] artery [place] vs. transplanted heart: [place] heart Associated angina: without angina Qualified Code(s): I25.10 - Atherosclerotic heart disease of [place] coronary artery without angina pectoris Comment: stable (3) Dementia Code(s): F03.90 - UNSPECIFIED DEMENTIA WITHOUT BEHAVIORAL DISTURBANCE Status: Chronic Qualifiers: Dementia type: unspecified type Comment: stable (4) Diabetes mellitus Code(s): E11.9 - TYPE 2 DIABETES MELLITUS WITHOUT COMPLICATIONS Status: Chronic Qualifiers: Diabetes mellitus type: type 2 Diabetes mellitus prison insulin use: without prison use Diabetes mellitus complication status: with kidney complications Diabetes mellitus complication detail: with chronic kidney disease Chronic kidney disease stage: stage 2 (mild) Qualified Code(s): E11.22 - Type 2 diabetes mellitus with diabetic chronic kidney disease; N18.2 - Chronic kidney disease, stage 2 (mild); N18.2 - Chronic kidney disease, stage 2 (mild) Comment: accuchecks, insulin sliding scale (5) Dyslipidemia Code(s): E78.5 - HYPERLIPIDEMIA, UNSPECIFIED Status: Chronic Comment: on statin (6) Hypothyroidism Code(s): E03.9 - HYPOTHYROIDISM, UNSPECIFIED Status: Chronic Qualifiers: Hypothyroidism type: unspecified Qualified Code(s): E03.9 - Hypothyroidism , unspecified Comment: on synthroid (7) Weakness of left lower extremity Code(s): R29.898 - OTH SYMPTOMS AND SIGNS INVOLVING THE MUSCULOSKELETAL SYSTEM Status: Resolved (8) Sepsis Code(s): A41.9 - SEPSIS, UNSPECIFIED ORGANISM Status: Resolved - Plan * . Review of Systems - Review of Systems Constitutional: negative: fever, chills, sweats, weakness, malaise Cardiovascular: negative: chest pain, palpitations, orthopnea, paroxysmal nocturnal dyspnea, edema, light headedness - Medications/Allergies Allergies/Adverse Reactions: Allergies Allergy/AdvReac Type Severity Reaction Status Date / Time levofloxacin [From Levaquin] Allergy Rash Verified 04/03/18 19:23 Penicillins Allergy Rash Verified 04/03/18 19:23 Medications: Current Medications Acetaminophen (Tylenol) 650 mg PO Q4H PRN PRN Reason: Headache/Fever or Pain Aspirin (Aspirin) 325 mg PO DAILY [facility] Last Admin: 04/06/18 08:34 Dose: 325 mg Atorvastatin Calcium (Lipitor) 40 mg PO HS [facility] Last Admin: 04/05/18 20:33 Dose: 40 mg Bisacodyl (Dulcolax) 5 mg PO DAILY PRN PRN Reason: Constipation Last Admin: 04/05/18 11:29 Dose: 5 mg Carvedilol (Coreg) 12.5 mg PO BID [facility] Last Admin: 04/06/18 08:35 Dose: 12.5 mg Dextrose/Water (Dextrose 50%) 25 gm SLOW IVP PRN PRN PRN Reason: Hypoglycemia Donepezil HCl (Aricept) 10 mg PO [facility] Last Admin: 04/05/18 20:33 Dose: 10 mg Enoxaparin Sodium (Lovenox) 30 mg SC 0900 [facility] Last Admin: 04/06/18 08:35 Dose: 30 mg Glucagon (Glucagon) 1 mg IM PRN PRN PRN Reason: Hypoglycemia Meropenem 1 gm/ Device 50 mls @ 100 mls/hr IVPB 1200,2359 [facility] Last Admin: 04/06/18 11:32 Dose: 50 mls Dextrose/Water (D5w) 1,000 mls @ 0 mls/hr IV .Q0M PRN; As Directed PRN Reason: Hypoglycemia Vancomycin HCl 1.5 gm/ Sodium (Chloride) 300 mls @ 200 mls/hr IVPB 1200 [facility] Last Admin: 04/05/18 12:14 Dose: 300 mls Insulin Human Lispro (Humalog) 0 units SC .MILD SLIDING SCALE PRN PRN Reason: Mild Correctional Scale Last Admin: 04/06/18 11:37 Dose: 4 unit Levothyroxine Sodium (Synthroid) 125 mcg PO 0600 [facility] Last Admin: 04/06/18 05:09 Dose: 125 mcg Lisinopril (Zestril) 10 mg PO DAILY [facility] Last Admin: 04/06/18 08:34 Dose: 10 mg Melatonin (Melatonin) 9 mg PO [facility] Last Admin: 04/05/18 20:33 Dose: 9 mg Miscellaneous Medication (Pharmacy To Dose) 1 each IVPB ONE PRN PRN Reason: Pharmacy to dose Stop: 04/13/18 18:04 Ondansetron HCl (Zofran) 4 mg IVP Q6H PRN PRN Reason: Nausea/Vomiting Oxybutynin Chloride (Ditropan) 5 mg PO DAILY [facility] Last Admin: 04/06/18 08:35 Dose: 5 mg Pantoprazole Sodium (Protonix) 40 mg PO DAILY [facility] Last Admin: 04/06/18 08:34 Dose: 40 mg Prednisone (Prednisone) 5 mg PO DAILY PRN PRN Reason: Joint Stiffness Tramadol HCl (Ultram) 50 mg PO Q8H PRN PRN Reason: Pain Last Admin: 04/05/18 23:01 Dose: 50 mg
[2018-04-06] MEDS: Vancomycin HCl 1.5 GM in Sodium Chloride 0.9% 250 ML 300 ML IVPB SCH (12:41)
[2018-04-06] MEDS: traMADol HCl 50 MG TAB PO PRN (14:20)
[2018-04-06] MEDS: Atorvastatin Calcium 40 MG TAB PO SCH (21:42)
[2018-04-06] MEDS: Donepezil HCl 10 MG TAB PO SCH (21:43)
[2018-04-06] MEDS: Melatonin 3 MG TAB PO SCH (21:43)
[2018-04-07] MEDS: Levothyroxine Sodium 125 MCG TAB PO SCH (05:23)
[2018-04-07 05:48] LABS: #Basophils 0.1 thou/uL (0.0-0.2); #Eosinphils 0.4 thou/uL (0.0-0.7); #Lymphocytes 2.3 thou/uL (1.20-3.40); #Monocytes 0.7 thou/uL (0.11-0.59); %Basophils 0.8 % (0.0-1.0); %Eosinophils 5.9 % (0.0-10.0); %Lymphocytes 30.7 % (21.0-51.0); %Monocytes 9.8 % (0.0-10.0); %Neutrophils 52.8 % (42.0-75.0); Hemoglobin 10.3 g/dL (12.0-16.0); Mean Corpuscular Hemoglobin 31.8 pg (27.0-31.0); Mean Corpuscular Volume 93.5 fL (78.0-98.0); Mean Platelet Volume 7.3 fL (7.4-10.4); Platelet Count 216 thou/uL (130-400); RBC Distribution Width 13.9 % (11.5-14.5); Red Blood Cell (RBC) Count 3.22 mill/uL (4.20-5.40); White Blood Cell (WBC) Count 7.6 thou/uL (4.8-10.8)
[2018-04-07 06:06] LABS: Anion Gap 11 mmol/L (10-20); BUN (Urea Nitrogen) 14 mg/dL (9.8-20.1); Calc. Creatinine Clearance 67 mL/min (70-130); Calcium 9.4 mg/dL (7.8-10.44); Carbon Dioxide 29 mmol/L (23-31); Chloride 105 mmol/L (98-107); Estimated GFR-MDRD 67; Glucose 128 mg/dL (83-110); Potassium 3.8 mmol/L (3.5-5.1); Sodium 141 mmol/L (136-145)
[2018-04-07] MEDS: Carvedilol 25 MG TAB PO SCH ×2 (08:42→21:07)
[2018-04-07] MEDS: Aspirin 325 MG TAB PO SCH (08:42)
[2018-04-07] MEDS: Oxybutynin 5 MG TAB PO SCH (08:42)
[2018-04-07] MEDS: Lisinopril 10 MG TAB PO SCH (08:43)
[2018-04-07] MEDS: Enoxaparin Sodium 30 MG/0.3 ML SYRINGE SC SCH (08:43)
[2018-04-07 11:37] LABS: Vancomycin, Trough 17.6 ug/mL
[2018-04-07] MEDS: HumaLOG 300 UNITS/3 ML VIAL SC PRN (11:56)
[2018-04-07] MEDS: MEROPENEM 1 GM/50 ML 1 GM in Premix Bag 1 BAG IVPB SCH (11:57)
[2018-04-07] MEDS: Bisacodyl 5 MG TAB PO PRN (12:52)
[2018-04-07] MEDS: Vancomycin HCl 1.5 GM in Sodium Chloride 0.9% 250 ML 300 ML IVPB SCH (12:52)
--- NOTE | 2018-04-07 13:34 | PDOC.PN ---
- Subjective Encounter Start Date: 04/07/18 Encounter Start Time: 07:20 Pt seen for followup re: bacteremia. Denies chest pain, shortness of breath, fevers or chills. - Objective Resuscitation Status: Resuscitation Status FULL:Full Resuscitation MAR Reviewed: Yes Vital Signs & Weight: Vital Signs (12 hours) Temp Pulse Resp BP BP Pulse Ox 04/07/18 11:58 98.6 F 84 20 142/74 H 93 L 04/07/18 08:43 172/97 H 04/07/18 08:00 99.0 F 79 16 172/97 H 94 L 04/07/18 04:00 97.8 F 71 18 147/80 H 95 Weight Weight 180 lb 9.6 oz I&O: 04/06/18 04/07/18 04/08/18 06:59 06:59 06:59 Intake Total 2520 1240 600 Output Total 1000 Balance 1520 1240 600 Result Diagrams: 04/07/18 04:50 04/07/18 04:50 Additional Labs: Accuchecks 04/07/18 04/07/18 04/06/18 10:52 05:56 20:20 POC Glucose 201 H 126 H 194 H 04/06/18 17:00 POC Glucose 215 H EKG Reviewed by me: Yes (Tele: AV-paced) Phys Exam - Physical Examination Obese HEENT: sclera anicteric Neck: full ROM Respiratory: clear to auscultation bilateral Cardiovascular: RRR Gastrointestinal: soft Neurological: moves all 4 limbs Psychiatric: normal affect Dx/Plan (1) Bacteremia Code(s): R78.81 - BACTEREMIA Status: Chronic Comment: continue IV meropenem and vancomycin, preliminary blood cultures still negative (2) CAD (coronary artery disease) Code(s): I25.10 - ATHSCL HEART DISEASE OF [place] CORONARY ARTERY W/O ANG PCTRS Status: Chronic Qualifiers: Coronary Disease-Associated Artery/Lesion type: [place] artery [place] vs. 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 use: without nursing home use Diabetes mellitus complication status: with kidney complications Diabetes mellitus complication detail: with chronic kidney disease Chronic kidney disease stage: stage 2 (mild) Qualified Code(s): E11.22 - Type 2 diabetes mellitus with diabetic chronic kidney disease; N18.2 - Chronic kidney disease, stage 2 (mild); N18.2 - Chronic kidney disease, stage 2 (mild) Comment: continue accuchecks, insulin sliding scale (5) Dyslipidemia Code(s): E78.5 - HYPERLIPIDEMIA, UNSPECIFIED Status: Chronic Comment: on statin (6) Hypothyroidism Code(s): E03.9 - HYPOTHYROIDISM, UNSPECIFIED Status: Chronic Qualifiers: Hypothyroidism type: unspecified Qualified Code(s): E03.9 - Hypothyroidism , unspecified Comment: on synthroid (7) Weakness of left lower extremity Code(s): R29.898 - OTH SYMPTOMS AND SIGNS INVOLVING THE MUSCULOSKELETAL SYSTEM Status: Resolved (8) Sepsis Code(s): A41.9 - SEPSIS, UNSPECIFIED ORGANISM Status: Resolved - Plan * . Review of Systems - Review of Systems Respiratory: negative: Cough, Shortness of Breath, SOB with Excertion, Pleuritic Pain, Wheezing Cardiovascular: negative: chest pain, palpitations, orthopnea, paroxysmal nocturnal dyspnea, edema, light headedness - Medications/Allergies Allergies/Adverse Reactions: Allergies Allergy/AdvReac Type Severity Reaction Status Date / Time levofloxacin [From Levaquin] Allergy Rash Verified 04/03/18 19:23 Penicillins Allergy Rash Verified 04/03/18 19:23 Medications: Current Medications Acetaminophen (Tylenol) 650 mg PO Q4H PRN PRN Reason: Headache/Fever or Pain Aspirin (Aspirin) 325 mg PO DAILY [facility] Last Admin: 04/07/18 08:42 Dose: 325 mg Atorvastatin Calcium (Lipitor) 40 mg PO HS [facility] Last Admin: 04/06/18 21:42 Dose: 40 mg Bisacodyl (Dulcolax) 5 mg PO DAILY PRN PRN Reason: Constipation Last Admin: 04/07/18 12:52 Dose: 5 mg Carvedilol (Coreg) 12.5 mg PO BID [facility] Last Admin: 04/07/18 08:42 Dose: 12.5 mg Dextrose/Water (Dextrose 50%) 25 gm SLOW IVP PRN PRN PRN Reason: Hypoglycemia Donepezil HCl (Aricept) 10 mg PO HS [facility] Last Admin: 04/06/18 21:43 Dose: 10 mg Enoxaparin Sodium (Lovenox) 30 mg SC 0900 [facility] Last Admin: 04/07/18 08:43 Dose: 30 mg Glucagon (Glucagon) 1 mg IM PRN PRN PRN Reason: Hypoglycemia Meropenem 1 gm/ Device 50 mls @ 100 mls/hr IVPB 1200,2359 [facility] Last Admin: 04/07/18 11:57 Dose: 50 mls Dextrose/Water (D5w) 1,000 mls @ 0 mls/hr IV .Q0M PRN PRN Reason: Hypoglycemia Vancomycin HCl 1.5 gm/ Sodium (Chloride) 300 mls @ 200 mls/hr IVPB 1200 [facility] Last Admin: 04/07/18 12:52 Dose: 300 mls Insulin Human Lispro (Humalog) 0 units SC .MILD SLIDING SCALE PRN PRN Reason: Mild Correctional Scale Last Admin: 04/07/18 11:56 Dose: 3 unit Levothyroxine Sodium (Synthroid) 125 mcg PO 0600 [facility] Last Admin: 04/07/18 05:23 Dose: 125 mcg Lisinopril (Zestril) 10 mg PO DAILY [facility] Last Admin: 04/07/18 08:43 Dose: 10 mg Melatonin (Melatonin) 9 mg PO HS [facility] Last Admin: 04/06/18 21:43 Dose: 9 mg Miscellaneous Medication (Pharmacy To Dose) 1 each IVPB ONE PRN PRN Reason: Pharmacy to dose Stop: 04/13/18 18:04 Ondansetron HCl (Zofran) 4 mg IVP Q6H PRN PRN Reason: Nausea/Vomiting Oxybutynin Chloride (Ditropan) 5 mg PO DAILY [facility] Last Admin: 04/07/18 08:42 Dose: 5 mg Pantoprazole Sodium (Protonix) 40 mg PO DAILY [facility] Last Admin: 04/07/18 08:42 Dose: 40 mg Prednisone (Prednisone) 5 mg PO DAILY PRN PRN Reason: Joint Stiffness Tramadol HCl (Ultram) 50 mg PO Q8H PRN PRN Reason: Pain Last Admin: 04/06/18 14:20 Dose: 50 mg
[2018-04-07] MEDS: Atorvastatin Calcium 40 MG TAB PO SCH (21:07)
[2018-04-07] MEDS: Donepezil HCl 10 MG TAB PO SCH (21:07)
[2018-04-07] MEDS: Melatonin 3 MG TAB PO SCH (22:36)
[2018-04-08] MEDS: MEROPENEM 1 GM/50 ML 1 GM in Premix Bag 1 BAG IVPB SCH ×3 (00:52→23:49)
[2018-04-08] MEDS: Levothyroxine Sodium 125 MCG TAB PO SCH (05:27)
[2018-04-08 06:06] LABS: #Basophils 0.1 thou/uL (0.0-0.2); #Eosinphils 0.3 thou/uL (0.0-0.7); #Monocytes 0.7 thou/uL (0.11-0.59); #Neutrophils 3.8 thou/uL (1.40-6.50); %Basophils 1.3 % (0.0-1.0); %Eosinophils 4.6 % (0.0-10.0); %Lymphocytes 29.3 % (21.0-51.0); %Monocytes 10.1 % (0.0-10.0); %Neutrophils 54.7 % (42.0-75.0); Hemoglobin 10.5 g/dL (12.0-16.0); Mean Corpuscular HGB CONC 33.9 g/dL (32.0-36.0); Mean Corpuscular Hemoglobin 31.6 pg (27.0-31.0); Platelet Count 215 thou/uL (130-400); Red Blood Cell (RBC) Count 3.33 mill/uL (4.20-5.40)
[2018-04-08 06:20] LABS: Anion Gap 13 mmol/L (10-20); BUN (Urea Nitrogen) 14 mg/dL (9.8-20.1); Calc. Creatinine Clearance 63 mL/min (70-130); Calcium 9.5 mg/dL (7.8-10.44); Carbon Dioxide 28 mmol/L (23-31); Chloride 104 mmol/L (98-107); Estimated GFR-MDRD 61; Glucose 147 mg/dL (83-110); Potassium 3.7 mmol/L (3.5-5.1); Sodium 141 mmol/L (136-145)
[2018-04-08] MEDS: Carvedilol 25 MG TAB PO SCH ×2 (09:13→21:19)
[2018-04-08] MEDS: Oxybutynin 5 MG TAB PO SCH (09:13)
[2018-04-08] MEDS: Lisinopril 10 MG TAB PO SCH (09:13)
[2018-04-08] MEDS: Aspirin 325 MG TAB PO SCH (09:13)
[2018-04-08] MEDS: Enoxaparin Sodium 30 MG/0.3 ML SYRINGE SC SCH (09:14)
[2018-04-08] MEDS: Bisacodyl 5 MG TAB PO PRN (09:32)
[2018-04-08] MEDS: HumaLOG 300 UNITS/3 ML VIAL SC PRN (14:30)
[2018-04-08] MEDS ORDERED: Magnesium Citrate 300 ML BOT PO SCH (17:15)
--- NOTE | 2018-04-08 18:29 | PDOC.PN ---
- Subjective Encounter Start Date: 04/08/18 Encounter Start Time: 07:20 Pt seen for followup re: bacteremia. Feels well, no complaints. - Objective Resuscitation Status: Resuscitation Status FULL:Full Resuscitation Vital Signs & Weight: Vital Signs (12 hours) Temp Pulse Pulse Resp BP BP Pulse Ox 04/08/18 15:35 98.6 F 78 16 148/80 H 93 L 04/08/18 13:09 80 107/91 H 04/08/18 11:08 98.5 F 80 16 156/85 H 93 L 04/08/18 09:14 98.9 F 84 20 180/91 H 93 L 04/08/18 08:20 98.9 F 84 20 95 Weight Weight 180 lb 9.6 oz I&O: 04/07/18 04/08/18 04/09/18 06:59 06:59 06:59 Intake Total 1240 1140 480 Balance 1240 1140 480 Result Diagrams: 04/08/18 05:49 04/08/18 05:49 Additional Labs: Accuchecks 04/08/18 04/08/18 04/08/18 17:01 10:37 05:26 POC Glucose 128 H 247 H 148 H 04/07/18 04/07/18 22:28 16:37 POC Glucose 197 H 125 H Phys Exam - Physical Examination obese HEENT: moist MMs Neck: supple Respiratory: clear to auscultation bilateral Cardiovascular: RRR Neurological: moves all 4 limbs Psychiatric: normal affect Dx/Plan (1) Bacteremia Code(s): R78.81 - BACTEREMIA Status: Chronic Comment: continue IV meropenem and vancomycin, await final blood cultures (2) CAD (coronary artery disease) Code(s): I25.10 - ATHSCL HEART DISEASE OF [place] CORONARY ARTERY W/O ANG PCTRS Status: Chronic Qualifiers: Coronary Disease-Associated Artery/Lesion type: [place] artery [place] vs. transplanted heart: [place] heart Associated angina: without angina Qualified Code(s): I25.10 - Atherosclerotic heart disease of [place] coronary artery without angina pectoris Comment: stable (3) Dementia Code(s): F03.90 - UNSPECIFIED DEMENTIA WITHOUT BEHAVIORAL DISTURBANCE Status: Chronic Qualifiers: Dementia type: unspecified type Comment: stable (4) Diabetes mellitus Code(s): E11.9 - TYPE 2 DIABETES MELLITUS WITHOUT COMPLICATIONS Status: Chronic Qualifiers: Diabetes mellitus type: type 2 Diabetes mellitus fci insulin use: without fci use Diabetes mellitus complication status: with kidney complications Diabetes mellitus complication detail: with chronic kidney disease Chronic kidney disease stage: stage 2 (mild) Qualified Code(s): E11.22 - Type 2 diabetes mellitus with diabetic chronic kidney disease; N18.2 - Chronic kidney disease, stage 2 (mild); N18.2 - Chronic kidney disease, stage 2 (mild) Comment: continue insulin sliding scale (5) Dyslipidemia Code(s): E78.5 - HYPERLIPIDEMIA, UNSPECIFIED Status: Chronic Comment: on statin (6) Hypothyroidism Code(s): E03.9 - HYPOTHYROIDISM, UNSPECIFIED Status: Chronic Qualifiers: Hypothyroidism type: unspecified Qualified Code(s): E03.9 - Hypothyroidism , unspecified Comment: continue synthroid (7) Weakness of left lower extremity Code(s): R29.898 - OTH SYMPTOMS AND SIGNS INVOLVING THE MUSCULOSKELETAL SYSTEM Status: Resolved (8) Sepsis Code(s): A41.9 - SEPSIS, UNSPECIFIED ORGANISM Status: Resolved - Plan * . Review of Systems - Review of Systems Constitutional: negative: fever, chills, sweats, weakness, malaise Cardiovascular: negative: chest pain, palpitations, orthopnea, paroxysmal nocturnal dyspnea, edema, light headedness - Medications/Allergies Allergies/Adverse Reactions: Allergies Allergy/AdvReac Type Severity Reaction Status Date / Time levofloxacin [From Levaquin] Allergy Rash Verified 04/03/18 19:23 Penicillins Allergy Rash Verified 04/03/18 19:23 Medications: Current Medications Acetaminophen (Tylenol) 650 mg PO Q4H PRN PRN Reason: Headache/Fever or Pain Aspirin (Aspirin) 325 mg PO DAILY [facility] Last Admin: 04/08/18 09:13 Dose: 325 mg Atorvastatin Calcium (Lipitor) 40 mg PO HS [facility] Last Admin: 04/07/18 21:07 Dose: 40 mg Bisacodyl (Dulcolax) 5 mg PO DAILY PRN PRN Reason: Constipation Last Admin: 04/08/18 09:32 Dose: 5 mg Carvedilol (Coreg) 12.5 mg PO BID [facility] Last Admin: 04/08/18 09:13 Dose: 12.5 mg Dextrose/Water (Dextrose 50%) 25 gm SLOW IVP PRN PRN PRN Reason: Hypoglycemia Donepezil HCl (Aricept) 10 mg PO HS [facility] Last Admin: 04/07/18 21:07 Dose: 10 mg Enoxaparin Sodium (Lovenox) 30 mg SC 0900 [facility] Last Admin: 04/08/18 09:14 Dose: 30 mg Glucagon (Glucagon) 1 mg IM PRN PRN PRN Reason: Hypoglycemia Meropenem 1 gm/ Device 50 mls @ 100 mls/hr IVPB 1200,2359 [facility] Last Admin: 04/08/18 12:49 Dose: 50 mls Dextrose/Water (D5w) 1,000 mls @ 0 mls/hr IV .Q0M PRN PRN Reason: Hypoglycemia Insulin Human Lispro (Humalog) 0 units SC .MILD SLIDING SCALE PRN PRN Reason: Mild Correctional Scale Last Admin: 04/08/18 14:30 Dose: 3 unit Levothyroxine Sodium (Synthroid) 125 mcg PO 0600 [facility] Last Admin: 04/08/18 05:27 Dose: 125 mcg Lisinopril (Zestril) 10 mg PO DAILY [facility] Last Admin: 04/08/18 09:13 Dose: 10 mg Magnesium Citrate (Citrate Of Magnesia 300 Ml Bot) 300 ml PO NOW [facility] Stop: 04/08/18 18:30 Melatonin (Melatonin) 9 mg PO [facility] Last Admin: 04/07/18 22:36 Dose: 9 mg Ondansetron HCl (Zofran) 4 mg IVP Q6H PRN PRN Reason: Nausea/Vomiting Oxybutynin Chloride (Ditropan) 5 mg PO DAILY [facility] Last Admin: 04/08/18 09:13 Dose: 5 mg Pantoprazole Sodium (Protonix) 40 mg PO DAILY [facility] Last Admin: 04/08/18 12:49 Dose: 40 mg Prednisone (Prednisone) 5 mg PO DAILY PRN PRN Reason: Joint Stiffness Tramadol HCl (Ultram) 50 mg PO Q8H PRN PRN Reason: Pain Last Admin: 04/06/18 14:20 Dose: 50 mg
[2018-04-08] MEDS: Atorvastatin Calcium 40 MG TAB PO SCH (21:19)
[2018-04-08] MEDS: Donepezil HCl 10 MG TAB PO SCH (21:19)
[2018-04-08] MEDS: Melatonin 3 MG TAB PO SCH (21:20)
[2018-04-09] MEDS ORDERED: Fleet Enema 133 ML BOT FS SCH (05:30)
[2018-04-09] MEDS: Levothyroxine Sodium 125 MCG TAB PO SCH (06:35)
[2018-04-09] MEDS: HumaLOG 300 UNITS/3 ML VIAL SC PRN ×2 (06:39→10:48)
[2018-04-09 06:47] LABS: #Eosinphils 0.3 thou/uL (0.0-0.7); #Lymphocytes 1.5 thou/uL (1.20-3.40); #Monocytes 0.6 thou/uL (0.11-0.59); #Neutrophils 4.8 thou/uL (1.40-6.50); %Basophils 0.6 % (0.0-1.0); %Eosinophils 4.4 % (0.0-10.0); %Lymphocytes 20.4 % (21.0-51.0); %Monocytes 8.5 % (0.0-10.0); %Neutrophils 66.1 % (42.0-75.0); Hemoglobin 11.1 g/dL (12.0-16.0); Mean Corpuscular HGB CONC 33.2 g/dL (32.0-36.0); Mean Corpuscular Hemoglobin 31.1 pg (27.0-31.0); Mean Corpuscular Volume 93.6 fL (78.0-98.0); Mean Platelet Volume 7.4 fL (7.4-10.4); Platelet Count 203 thou/uL (130-400); RBC Distribution Width 14.1 % (11.5-14.5); Red Blood Cell (RBC) Count 3.58 mill/uL (4.20-5.40); White Blood Cell (WBC) Count 7.3 thou/uL (4.8-10.8)
[2018-04-09 07:06] LABS: Anion Gap 10 mmol/L (10-20); BUN (Urea Nitrogen) 17 mg/dL (9.8-20.1); Calc. Creatinine Clearance 56 mL/min (70-130); Calcium 9.8 mg/dL (7.8-10.44); Carbon Dioxide 32 mmol/L (23-31); Chloride 101 mmol/L (98-107); Estimated GFR-MDRD 54; Glucose 184 mg/dL (83-110); Potassium 4.3 mmol/L (3.5-5.1); Sodium 139 mmol/L (136-145)
[2018-04-09] MEDS: Enoxaparin Sodium 30 MG/0.3 ML SYRINGE SC SCH (09:27)
[2018-04-09] MEDS: Carvedilol 25 MG TAB PO SCH (09:27)
[2018-04-09] MEDS: Aspirin 325 MG TAB PO SCH (09:27)
[2018-04-09] MEDS: Oxybutynin 5 MG TAB PO SCH (09:28)
[2018-04-09] MEDS: Lisinopril 10 MG TAB PO SCH (09:29)
[2018-04-09 11:45] VITALS: BP 113/64; TEMP 97.4
[2018-04-09] MEDS: MEROPENEM 1 GM/50 ML 1 GM in Premix Bag 1 BAG IVPB SCH (12:30)
--- NOTE | 2018-04-09 13:17 | DIS ---
DATE OF ADMISSION: 04/03/2018 DATE OF DISCHARGE: 04/09/2018 PRIMARY CARE PROVIDER: Seda Jefferson M.D. DISCHARGE DIAGNOSES: 1. Bacteremia. 2. Sepsis. 3. Left lower extremity weakness. CONDITION OF PATIENT ON THE DAY OF DISCHARGE: Stable. I assessed Ms. Hinson on the day of discharge. She denies any chest pain or shortness of breath. Vital signs are stable. S1 and S2 are heard, regular. Lungs are clear to auscultation bilaterally. HOSPITAL COURSE: Ms. Hinson is a pleasant 82-year-old lady who was admitted to [facility] for sepsis. She was recently hospitalized for urinary tract infection and bacteremia and was discharged to long term facility for intravenous meropenem till 04/25/2018. At the time of this admission, the patient also had left lower extremity weakness, which eventually resolved. She was seen by Neurology service. Her aspirin dose was increased to 325 mg daily. Transthoracic echocardiogram showed left ventricular ejection fraction of 55%-60%. She was treated with intravenous vancomycin and meropenem. Blood cultures were followed. Eventually, blood cultures came back negative. She is being discharged to [facility] [place] with intravenous meropenem till 04/25/2018. DISCHARGE MEDICATIONS: Aspirin 325 mg daily, Enbrel 50 mg subcutaneously every week, methotrexate 12.5 mg subcutaneously every week, Lipitor 40 mg at bedtime, Coreg 12.5 mg 2 times a day, vitamin D3 5000 units daily, ciclopirox treatment kit at bedtime, Aricept 10 mg at bedtime, glipizide 5 mg daily, Synthroid 125 mcg daily, lisinopril 10 mg daily, melatonin 9 mg at bedtime, oxybutynin 5 mg daily, Protonix 40 mg daily, meropenem 1 gram intravenously 3 times a day till 04/25/2018, Tylenol Regular Strength 650 mg every 4 hours as needed, Dulcolax 5 mg daily as needed, MiraLax 17 grams daily as needed, and prednisone 5 mg daily as needed. On the day of discharge, she has white count of 7300, hemoglobin 11.1, platelet count 203,000, normal sodium, normal potassium, and normal creatinine. Many thanks for allowing me to participate in your patient's care. Please feel free to contact me with any questions or concerns. DISCHARGE DESTINATION: [facility] at [place]. TOTAL AMOUNT OF TIME SPENT COORDINATING THIS DISCHARGE: 33 minutes. ADDENDUM ON 04/12/2018: Patient's discharge diagnoses also include: cerebral infarction, resolved, present at the time of admission. SHAHIDD
--- NOTE | 2018-04-12 13:17 | PQF ---
TAYLOR GARSIA BERTHA CONCEPCION [id number] CLINICAL DOCUMENTATION CLARIFICATION FORM: POST DISCHARGE DATE: 04/12/2018 ATTN: Dr. Concepcion Please exercise your independent, professional judgment in responding to the clarification form. Clinical indicators are provided on the bottom of this form for your review Please check appropriate box(s) to clarify if the following diagnosis has been ruled in or ruled out: Cerebral Infarction [ X ] Ruled in diagnosis [ ] Continue to treat [ X ] Resolved [ ] Ruled out diagnosis [ ] Cannot rule out diagnosis [ ] Other diagnosis (please specify) [ ] Unable to determine In addition, please specify: Present on Admission (POA): [ X ] Yes [ ] No [ ] Unable to determine For continuity of documentation, please document condition throughout progress notes and discharge summary. Thank You. CLINICAL INDICATORS - SIGNS / SYMPTOMS / LABS Per H&P: As per report, the patient also has some neurological findings, agreement was to do a TIA workup, we will follow results. We will treat accordingly. Per neuro consult: Left leg weakness. The patient is an 82-year-old lady with acute left side lower extremity weakness. Likely this is due to another lacunar infarct, probably involving the right frontal lobe. At this time, we are unable to obtain an MRI due to her pacemaker. Per discharge summary: Left lower extremity weakness. At the time of this admission, the patient also had left lower extremity weakness, which eventually resolved. RISK FACTORS (per H&P/progress notes) Hypertension. Diabetes mellitus. Hyperlipidemia. CAD. TREATMENTS Per neuro consult: Increase Aspirin to 325 mg per day since she used to take 81 mg of Aspirin at home. Continue Lipitor for now. She will need physical therapy as well. (This form is maintained as a part of the permanent medical record) 2014 [employer]. All Rights Reserved [email or web address] [phone] [email or web address]
== END 2018-04-09 13:23 | disposition swing bed (61) | DRG 871 ==
LOC: ERS 13:50 → 2SE 18:04
PROVIDERS: ADMIT Internal Medicine; ATTEND Internal Medicine
DX: A41.9 Sepsis, unspecified organism (principal); N39.0 Urinary tract infection, site not specified; E11.65 Type 2 diabetes mellitus with hyperglycemia; E11.22 Type 2 diabetes mellitus with diabetic chronic kidney disease; M06.9 Rheumatoid arthritis, unspecified; F03.90 Unspecified dementia, unspecified severity, without behavioral disturbance, psychotic disturbance, mood disturbance, and anxiety; E78.5 Hyperlipidemia, unspecified; N18.2 Chronic kidney disease, stage 2 (mild); E03.9 Hypothyroidism, unspecified; I12.9 Hypertensive chronic kidney disease with stage 1 through stage 4 chronic kidney disease, or unspecified chronic kidney disease; I25.10 Atherosclerotic heart disease of native coronary artery without angina pectoris; Z88.1 Allergy status to other antibiotic agents; I63.9 Cerebral infarction, unspecified; G83.14 Monoplegia of lower limb affecting left nondominant side; Z88.0 Allergy status to penicillin; Z79.84 Long term (current) use of oral hypoglycemic drugs; Z79.82 Long term (current) use of aspirin; Z79.899 Other long term (current) drug therapy; Z95.0 Presence of cardiac pacemaker; Z96.653 Presence of artificial knee joint, bilateral
CPT/HCPCS: 36415; 36416; 71045; 74177; 80048; 80061; 80202; 81003; 83605; 85025; 87040; 93005; 93306; 93880; G8978-GP-CL; G8979-GP-CJ; G8987-GO-CL; G8988-GO-CJ; J1650; J2185; J3370; J7050

== ENCOUNTER 2018-10-12 18:44 | Inpatient (IN) | payer MEDICARE ==
--- NOTE | 2018-10-12 19:58 | PDOC.FPRHP ---
- History of Present Illness Chief Complaint: Weakness, nausea History of Present Illness: 83 yo F with previous hx multidrug resistant UTI is a transfer from [facility]. Presented with complaint of 1 wk hx weakness, nausea, decreased PO intake. No vomiting. Reports diarrhea (4 watery episodes daily), nonproductive cough, SOB at rest x 4 days. Was in contact with PCP and giving imodium consistently at home. Daughter notes bowel incontinence. At baseline has orthopnea. Denies h/ o CHF. At [facility] BP 91/57 and found to have UTI. BP improved with 2L IVF. Patient feeling better and tolerated cup of ice chips in our ED. Lives at home with daughter next door. Has daytime and nighttime assistance and HH. Typically ambulates with walker, though 2/2 weakness has been using wheelchair last 3 days. ED Course: 2L, rocephin, zofran - Allergies/Adverse Reactions Allergies Allergy/AdvReac Type Severity Reaction Status Date / Time Penicillins Allergy Verified 10/12/18 23:10 - Home Medications Medication Instructions Recorded Confirmed Type Levothyroxine Sodium [Synthroid] 125 mcg PO QAM 01/07/15 10/12/18 History Donepezil HCl [Aricept] 10 mg PO HS 08/25/17 10/12/18 History Melatonin 10 mg PO HS 08/25/17 10/12/18 History Pantoprazole [Protonix] 40 mg PO BID 08/25/17 10/12/18 History Acetaminophen [Tylenol Regular 650 mg PO Q4H PRN 09/15/17 10/12/18 History Strength] Atorvastatin Calcium [Lipitor] 40 mg PO HS 09/15/17 10/12/18 History Cholecalciferol (Vitamin D3) 5,000 unit PO DAILY 09/15/17 10/12/18 History [Vitamin D] Ciclopirox/Urea/Camph/Men/Euc 1 applic TOP HS 09/15/17 10/12/18 History [Ciclopirox 8% Treatment Kit] glipiZIDE [Glipizide] 10 mg PO DAILY 09/15/17 10/12/18 History Bisacodyl [Dulcolax] 2 tab PO HS 12/27/17 10/12/18 History Lisinopril [Zestril] 10 mg PO DAILY 12/27/17 10/12/18 History Methotrexate/PF [Otrexup 12.5 12.5 mg SQ Q7DAYS 12/27/17 10/12/18 History mg/0.4 ml Autoinj] Oxybutynin [Ditropan] 5 mg PO BID 12/27/17 10/12/18 History predniSONE [Prednisone] 5 mg PO DAILY PRN 12/27/17 10/12/18 History Carvedilol 12.5 mg PO BID 03/25/18 10/12/18 History Etanercept [Enbrel] 50 mg SC Q7DAYS 03/25/18 10/12/18 History Polyethylene Glycol 3350 [Miralax] 17 gm PO DAILY pk 04/28/18 10/12/18 Rx Albuterol Sulfate [Proair HFA] 90 mcg QID 10/12/18 10/12/18 History Calcium Carbonate [Tums] 500 mg PO Q6H PRN 10/12/18 10/12/18 History Folic Acid 1 mg PO DAILY 10/12/18 10/12/18 History HYDROcodone Bit/APAP 10/325 [[place]] 1 tab PO TID PRN 10/12/18 10/12/18 History Loperamide HCl [Imodium] 2 mg PO HS 10/12/18 10/12/18 History Ondansetron [Zofran ODT] 4 mg PO Q4HR PRN 10/12/18 10/12/18 History traMADol HCl [Ultram] 50 mg PO Q8HR PRN 10/12/18 10/12/18 History - History PMHx:rheumatoid arthritis, CAD s/p stent x 1, GERD, diabetes, HTN, s/p thyroidectomy, HLD, urinary urgency, dementia PSHx: pacemaker 05/2011, thyroidectomy 1973, lung surgery(1/2 lung removed) 1980 , cholecystectomy-2000, hysterectomy- 1977, back surgery-1991, TKR bilaterally- 1989 & 1999, cataract, heart stent 05/2011, L1-2 & T7-11- 03/2017 FHx: mom- diabetes, siblings: colon CA, esophageal CA, breast CA, liver CA, ovarian CA Social:no alcohol use, no drug use, no tobacco hx - Review of Systems General: reports: fever/chills, fatigue (generalized weakness) Eyes: denies: vision changes ENT: denies: nasal congestion Respiratory: reports: cough, shortness of breath Cardiovascular: reports: edema (recently some leg swelling), orthopnea. denies : chest pain, palpitation, paroxysmal nocturnal dyspnea Gastrointestinal: reports: nausea, vomiting, diarrhea. denies: abdominal pain, GI bleeding Genitourinary: denies: dysuria, polyuria Skin: denies: rashes, jaundice Musculoskeletal: reports: pain (leg pain/joint pain), arthritis/arthralgias Neurological: reports: weakness (generalized). denies: numbness, syncope Psychological: denies: anxiety, depression - Vital signs BP: 115/69 HR: 70 RR: 14 Tmax: 101 Pox: 94% on RA Wt: 77kg - Physical Exam Constitutional: NAD, awake, alert and oriented, well developed HEENT: normocephalic and atraumatic, PERRLA, grossly normal vision, grossly normal hearing, normal nasal mucosa, MMM, oropharynx clear Heart: RRR, normal S1/S2, no murmurs/rubs/gallops, other (trace nonpitting edema BLE) Lungs: no respiratory distress, other (diffuse crackles) Abdomen: soft, bowel sounds present, other (suprapubic tenderness) Neurological: no focal deficit Skin: no rash/lesions, capillary refill <2 seconds, other (decreased turgor) Heme/Lymphatic: no unusual bruising or bleeding Psychiatric: normal mood and affect FMR H&P: Results - Labs Result Diagrams: 10/15/18 08:49 10/15/18 08:49 FMR H&P: A/P - Problem List (1) UTI (urinary tract infection) Current Visit: Yes Status: Acute (2) Sepsis Current Visit: Yes Status: Acute Code(s): A41.9 - SEPSIS, UNSPECIFIED ORGANISM (3) NEENA (acute kidney injury) Current Visit: Yes Status: Acute Code(s): N17.9 - ACUTE KIDNEY FAILURE, UNSPECIFIED (4) Anemia Current Visit: Yes Status: Chronic Code(s): D64.9 - ANEMIA, UNSPECIFIED (5) Dehydration Current Visit: Yes Status: Acute Code(s): E86.0 - DEHYDRATION (6) CAD (coronary artery disease) Current Visit: Yes Status: Chronic Code(s): I25.10 - ATHSCL HEART DISEASE OF [place] CORONARY ARTERY W/O ANG PCTRS Qualifiers: Coronary Disease-Associated Artery/Lesion type: [place] artery [place] vs. transplanted heart: [place] heart Associated angina: without angina Qualified Code(s): I25.10 - Atherosclerotic heart disease of [place] coronary artery without angina pectoris Comment: stable (7) Dementia Current Visit: Yes Status: Chronic Code(s): F03.90 - UNSPECIFIED DEMENTIA WITHOUT BEHAVIORAL DISTURBANCE Qualifiers: Dementia type: unspecified type Comment: stable (8) Diabetes mellitus Current Visit: Yes Status: Chronic Code(s): E11.9 - TYPE 2 DIABETES MELLITUS WITHOUT COMPLICATIONS Qualifiers: Diabetes mellitus type: type 2 Diabetes mellitus half-way insulin use: without half-way use Diabetes mellitus complication status: with kidney complications Diabetes mellitus complication detail: with chronic kidney disease Chronic kidney disease stage: stage 2 (mild) Qualified Code(s): E11.22 - Type 2 diabetes mellitus with diabetic chronic kidney disease; N18.2 - Chronic kidney disease, stage 2 (mild) (9) Dyslipidemia Current Visit: Yes Status: Chronic Code(s): E78.5 - HYPERLIPIDEMIA, UNSPECIFIED Comment: on statin (10) Hypothyroidism Current Visit: Yes Status: Chronic Code(s): E03.9 - HYPOTHYROIDISM, UNSPECIFIED Qualifiers: Hypothyroidism type: unspecified Qualified Code(s): E03.9 - Hypothyroidism , unspecified Comment: continue synthroid - Plan Sepsis 2/2 UTI - Leukocytosis, fever, hypotensive on initial presentation. Lactic 2.2. BP responded to 2L fluid resuscitation. - received 1 dose rocephin in ED. Previous UTI admission, blood culture grew MDR e coli responsive to meropenem requiring 3 wks IV antibiotics/PICC, Dr Sandhu was on case - pending procalcitonin - zofran prn - Urine and blood cultures pending at [facility] ED - Start meropenem (10/12). Consider Dr. Sandhu consult in am. LLL Bronchiectasis - CT chest showed LLL bronchiectasis, LLL peripheral infiltrates suspect chronic infection, chronic fibrotic changes - CXR showed cardiomegaly, also present in 2015 - diffuse crackles on exam, BNP pending - Echo 03/2018 showed EF 55-60%, possible diastolic dysfunction. BNP pending. IVF as above and monitor for signs of volume overload. Diarrhea - pending c diff - continue home probiotics NEENA 2/2 volume depletion - Cr 1.88, baseline 0.8 in 03/2018 - IVF as above, monitor on am BMP Chronic normocytic anemia - Hgb 10.3, at baseline compared to prior - monitor on am CBC HTN - hold home lisinopril, carvedilol for now HLD - continue home atorvastatin DM2 - continue home glipizide - pending A1c - BG 330 on admission, accuchecks, SSI overnight Hypothyroid - continue home synthroid Rheumatoid arthritis - continue home methrotrexate, enbrel (on wednesdays). Has vicodin and tramadol on home med list as well. Urinary control - continue home oxybutynin GERD - continue home protonix Dementia - continue home donepezil PCP: Dr. Escudero Diet: CC, HH Ppx: Lovenox Dispo: admit to medical inpatient, expect stay >2 midnights FMR H&P: Upper Level - Pertinent history 83 yr old female with PMH of DM, CAD, RA and hx of multiple UTIs presents as a transfer from [facility] ER for UTI. She came in with c/o nausea, some vomiting, and diarrhea worsened in the last 4 days. She has felt generalized weakness for about a week. She had slightly elevated WBC, fever to 101 at outside ER. She was given Rocephin 1 gram, 2 liter NS bolus, Tylenol and Zofran. She has a hx of E coli bacteremia 2/2 UTI in 02/2018 that was multidrug resistant. At that time was sensitive to meropenem, cefoxitin, amikacin, and gentamicin. 4 watery diarrhea a day- maxed out on immodium. Low grade fever started 4 days ago. Feeling weak for about a week. nausea and some vomiting. Not tolerating food or water well. Tolerated ice chips this afternoon. No dysuria. - Pertinent findings Gen: no acute distress Heart: RRR, no M/R/G Lungs: bilateral lower lobe crackles vs rhonchi, bilateral upper lobe crackles, good air movement Abd: mild suprapubic tenderness, BS normal active ext: trace BLE edema Chest CT: left lower lobe bronchiectasis, new but chronic appearing infiltrative area in left lower lobe peripherally. UA: 3+bacteria, 21-50 WBC, trace blood - Plan Date/Time: 10/12/181957 Sriram, [Ml Peterson], have evaluated this patient and agree with findings/plan as outlined by architecture internship resident. Pertinent changes/additions are listed here. 83 yr old female with UTI Sepsis 2/2 UTI, species unknown -fever and Leukocytosis -hx of multidrug resistant/ESBL E coli UTIs- last UTI with bacteremia treated with extended course of meropenem, will start meropenem -she has been adequately resuscitated in outside ER with good response -given her likely CHF, will gentle IV fluids NEENA -last creatinine was 0.88 in 03/2018 -suspect likely 2/2 to volume depletion -will monitor with AM BMP Left lower lobe bronchiectasis with suspected chronic infection -recent cough -will check procalcitonin and BNP -consider pulm consult if clinically indicated DM -check A1C -only on orals outpt, will do SSI CAD -stable currently -cont home meds chronic normocytic Anemia -stable -monitor hypothyroidism -cont home meds RA -cont home meds HLD -cont home meds Addendum - Attending - Attending Attestation Date/Time: 10/16/18 0703 I personally evaluated the patient and discussed the management with Dr. Estrella I agree with the History, Examination, Assessment and Plan documented above with any addition or exceptions noted below.
[2018-10-12] MEDS ORDERED: Acetaminophen 325 MG TAB PO PRN (21:42)
[2018-10-12] MEDS ORDERED: Dextrose 5% in Water 1,000 ML IV PRN (21:42)
[2018-10-12] MEDS ORDERED: Ondansetron ODT 4 MG TAB PO PRN (21:42)
[2018-10-12] MEDS ORDERED: Dextrose 50% Abboject 50 ML SYRINGE SLOW IVP PRN (21:42)
[2018-10-12] MEDS ORDERED: Ondansetron PF 4 MG/2 ML Vial IVP PRN (21:42)
[2018-10-12] MEDS ORDERED: cefTRIAXone\\ROCEPHIN 1 GM in Sodium Chloride 0.9% 100 ML IVPB SCH (22:00)
[2018-10-12] MEDS: Lactated Ringer's 1,000 ML IV SCH (23:05)
[2018-10-13] MEDS: MEROPENEM 1 GM/50 ML 1 GM in Premix Bag 1 BAG IVPB SCH ×3 (00:15→16:16)
[2018-10-13 00:25] VITALS: BMI 30.9
[2018-10-13] MEDS ORDERED: Calcium Carbonate 500 MG ChewTAB PO PRN (01:58)
[2018-10-13] MEDS: Levothyroxine Sodium 125 MCG TAB PO SCH (05:55)
--- NOTE | 2018-10-13 05:57 | PDOC.FM ---
- Subjective Subjective: Pt reports feeling much better this AM. She is less weak, however she still has decreased appetite. - Objective Vital Signs & Weight: Vital Signs (12 hours) Temp Pulse Resp BP Pulse Ox 10/13/18 01:42 97.5 F L 72 16 146/80 H 94 L 10/13/18 00:22 97.5 F L 72 16 146/80 H 98 10/12/18 21:42 97.8 F 78 16 129/73 94 L Weight Weight 84.368 kg Result Diagrams: 10/13/18 07:08 10/13/18 07:08 Phys Exam - Physical Examination Constitutional: NAD HEENT: PERRLA, moist MMs Neck: no nodes, supple coarse crackles present throughout Cardiovascular: RRR, no significant murmur Gastrointestinal: soft, non-tender, no distention, positive bowel sounds Musculoskeletal: no edema, pulses present Neurological: moves all 4 limbs Psychiatric: normal affect, A&O x 3 Skin: normal turgor, cap refill <2 seconds Dx/Plan (1) UTI (urinary tract infection) Status: Acute (2) Sepsis Code(s): A41.9 - SEPSIS, UNSPECIFIED ORGANISM Status: Acute (3) NEENA (acute kidney injury) Code(s): N17.9 - ACUTE KIDNEY FAILURE, UNSPECIFIED Status: Acute (4) Anemia Code(s): D64.9 - ANEMIA, UNSPECIFIED Status: Chronic (5) Dehydration Code(s): E86.0 - DEHYDRATION Status: Acute (6) CAD (coronary artery disease) Code(s): I25.10 - ATHSCL HEART DISEASE OF [place] CORONARY ARTERY W/O ANG PCTRS Status: Chronic Qualifiers: Coronary Disease-Associated Artery/Lesion type: [place] artery [place] vs. transplanted heart: [place] heart Associated angina: without angina Qualified Code(s): I25.10 - Atherosclerotic heart disease of [place] coronary artery without angina pectoris (7) Dementia Code(s): F03.90 - UNSPECIFIED DEMENTIA WITHOUT BEHAVIORAL DISTURBANCE Status: Chronic Qualifiers: Dementia type: unspecified type (8) Diabetes mellitus Code(s): E11.9 - TYPE 2 DIABETES MELLITUS WITHOUT COMPLICATIONS Status: Chronic Qualifiers: Diabetes mellitus type: type 2 Diabetes mellitus terminal worker insulin use: without group home use Diabetes mellitus complication status: with kidney complications Diabetes mellitus complication detail: with chronic kidney disease Chronic kidney disease stage: stage 2 (mild) Qualified Code(s): E11.22 - Type 2 diabetes mellitus with diabetic chronic kidney disease; N18.2 - Chronic kidney disease, stage 2 (mild) (9) Dyslipidemia Code(s): E78.5 - HYPERLIPIDEMIA, UNSPECIFIED Status: Chronic (10) Hypothyroidism Code(s): E03.9 - HYPOTHYROIDISM, UNSPECIFIED Status: Chronic Qualifiers: Hypothyroidism type: unspecified Qualified Code(s): E03.9 - Hypothyroidism , unspecified - Plan Plan: Sepsis 2/2 UTI - Leukocytosis, fever, hypotensive on initial presentation. Lactic 2.2. BP responded to 2L fluid resuscitation. - received 1 dose rocephin in ED. Previous UTI admission, blood culture grew MDR e coli responsive to meropenem requiring 3 wks IV antibiotics/PICC, Dr Sandhu was on case - procalcitonin 0.6 - zofran prn - Urine and blood cultures pending at [facility] - Started meropenem (10/12) - Consult Dr. Sandhu, recommendations appreciated - US kidneys (bilat) pending LLL Bronchiectasis - CT chest showed LLL bronchiectasis, LLL peripheral infiltrates suspect chronic infection, chronic fibrotic changes - Pt states she has had previous lung surgery, has scar on right upper back, states they were worried about lung cancer but findings benign Concern for CHF - CXR showed cardiomegaly, also present in 2015 - diffuse crackles on exam, BNP pending - Echo 03/2018 showed EF 55-60%, possible diastolic dysfunction. BNP pending. IVF as above and monitor for signs of volume overload. Diarrhea - pending c diff - continue home probiotics NEENA 2/2 volume depletion, improving - Cr 1.88-> 1.4, baseline 0.8 in 03/2018 - IVF as above, monitor on am BMP Chronic normocytic anemia - Hgb 10.3, at baseline compared to prior - monitor on am CBC HTN - restart home lisinopril as BP improved overnight, hold carvedilol for now HLD - continue home atorvastatin DM2 - continue home glipizide - A1C 9.0 - start Lantus 5 units - BG 330 on admission, accuchecks, SSI overnight Hypothyroid - continue home synthroid Rheumatoid arthritis - hold home methotrexate, enbrel (on wednesdays). Has vicodin and tramadol on home med list as well. Urinary incontinence - continue home oxybutynin GERD - continue home protonix Dementia - continue home donepezil PCP: Dr. Escudero Diet: CC, LUCIA Ppx: Lovenox Dispo: medical inpatient, expect stay >2 midnights Addendum - Attending - Attending Attestation Date/Time: 10/13/18 [id number] I personally evaluated the patient and discussed the management with Dr. osvaldo Marquis I agree with the History, Examination, Assessment and Plan documented above with any addition or exceptions noted below. Immunosupressed diabetic elderly female with recurrent MDR UTI for consult with ID appreciate recommendations.
[2018-10-13 07:18] LABS: #Eosinphils 0.2 thou/uL (0.0-0.7); #Lymphocytes 1.8 thou/uL (1.20-3.40); #Monocytes 0.2 thou/uL (0.11-0.59); #Neutrophils 6.4 thou/uL (1.40-6.50); %Basophils 0.3 % (0.0-1.0); %Eosinophils 2.7 % (0.0-10.0); %Lymphocytes 21.2 % (21.0-51.0); %Monocytes 2.1 % (0.0-10.0); %Neutrophils 73.7 % (42.0-75.0); Hemoglobin 10.3 g/dL (12.0-16.0); Mean Corpuscular HGB CONC 32.6 g/dL (32.0-36.0); Mean Corpuscular Volume 95.3 fL (78.0-98.0); Mean Platelet Volume 7.4 fL (7.4-10.4); Platelet Count 197 thou/uL (130-400); RBC Distribution Width 15.5 % (11.5-14.5); Red Blood Cell (RBC) Count 3.31 mill/uL (4.20-5.40); White Blood Cell (WBC) Count 8.7 thou/uL (4.8-10.8)
[2018-10-13 07:31] LABS: Anion Gap 14 mmol/L (10-20); BUN (Urea Nitrogen) 30 mg/dL (9.8-20.1); Calc. Creatinine Clearance 40 mL/min (70-130); Calcium 9.3 mg/dL (7.8-10.44); Carbon Dioxide 24 mmol/L (23-31); Chloride 105 mmol/L (98-107); Estimated GFR-MDRD 36; Glucose 174 mg/dL (83-110); Potassium 3.8 mmol/L (3.5-5.1); Sodium 139 mmol/L (136-145)
[2018-10-13] MEDS: glipiZIDE 5 MG TAB PO SCH (08:42)
[2018-10-13] MEDS: Enoxaparin Sodium 40 MG/0.4 ML SYRINGE SC SCH (08:42)
[2018-10-13] MEDS: Lisinopril 10 MG TAB PO SCH (08:43)
[2018-10-13] MEDS: Oxybutynin 5 MG TAB PO SCH ×2 (08:43→20:38)
[2018-10-13] MEDS: Pantoprazole 40 MG GRANULES PACKET PO SCH ×2 (08:43→20:39)
[2018-10-13] MEDS: Folic Acid 1 MG TAB PO SCH (08:44)
[2018-10-13] MEDS ORDERED: METHOTREXATE 12.5 MG SQ SCH (09:00)
[2018-10-13] MEDS ORDERED: Non-Formulary Item 1 EACH (Etanercept [Enbrel] 50 MG) SC SCH (09:00)
[2018-10-13] MEDS ORDERED: Insulin Glargine 5 UNITS in Pre-Filled Syringe 1 EACH SC SCH (13:15)
--- NOTE | 2018-10-13 14:57 | ULT ---
RNEAL ULTRASOUND: HISTORY: Sepsis. Urinary tract infection. COMPARISON: None. TECHNIQUE: Sagittal and transverse imaging of the kidneys is performed. FINDINGS: RIGHT KIDNEY: There is cortical thinning. No obvious cortical masses. The right kidney measures 9.0 x 4.4 x 4.6 c m. Mild dilatation of the renal pelvis without significant calyceal dilatation. LEFT KIDNEY: There is renal cortical thinning. No hydronephrosis. The left kidney measures 6.0 x 9.3 x 5.9 cm. Urinary bladder appears to be unremarkable. Bilateral ureteral jets are identified. IMPRESSION: 1. Bilateral renal cortical thinning. 2. Mild right-sided hydronephrosis. POS: [facility]
[2018-10-13] MEDS: traMADol HCl 50 MG TAB PO PRN (16:16)
--- NOTE | 2018-10-13 19:06 | RAD ---
PORTABLE CHEST: History: Cough. Comparison: 10-12-18 FINDINGS: Heart size is enlarged with a pacemaker in place. Chronic lung changes are seen. The retrocardiac reg ion is difficult to assess. Previous CT showed some parenchymal infiltrate in this area. IMPRESSION: 1. Cardiomegaly with transvenous pacemaker. 2. Chronic lung change with some slight increased parenchymal density in the left base which appears to be fairly similar to the previous CT study. POS: [facility]
--- NOTE | 2018-10-13 19:55 | CON ---
DATE OF CONSULTATION: REASON FOR CONSULTATION: Possible urosepsis. HISTORY OF PRESENT ILLNESS: An 83-year-old, whom I had seen in the past. I have seen her 2 or 3 times and last time was in March last year when she presented with a history of type 2 diabetes and coronary artery disease with a pacemaker and prior thoracic lumbar spine fusion. The patient had some element of dementia and had an invasive UTI with bacteremia treated in November and then she had recrudescence of the infection. Same ESBL organism was retrieved and at this time, she received 4 weeks of IV Invanz in [place] I believe. She was readmitted briefly with diarrhea, which resolved. C. diff was negative at that time. At this time, she is admitted with persistent diarrhea, decreased oral intake, cough with some orthopnea. She was seen in [facility] and was told that she had a UTI, given IV fluids for hypotension and then admitted. On arrival, her BP was heart rate 70, temperature 101. Appears alert. The lungs with diffuse inspiratory crackles. The skin without abnormalities. The initial labs demonstrated white cell count 8.7 with a normal differential, platelets 197, creatinine 1.41, procalcitonin 0.06. Last urinalysis is from [facility] and it showed 21 to 50 wbc's. Unfortunately, I do not see a urine culture ordered from [facility]. Currently, Ms. Hinson is awake. She has trouble with recollection of events because of her dementia. She denies any headaches. No respiratory symptoms except for coughing spells, particularly at night with some sputum production. No abdominal pain. She has no dysuria and she has some degree of incontinence. PAST MEDICAL HISTORY: Includes type 2 diabetes, hypertension, hypothyroidism, coronary artery disease, pacemaker, polyarthralgias, psoriasis. Her previous episode of pyelonephritis in November with recurrence and then protracted treatment with IV carbapenem and PICC line. ALLERGIES: LEVOFLOXACIN AND PENICILLIN WITH RASH. FAMILY HISTORY: Noncontributory. SOCIAL HISTORY: Never smoker and she had been living and at home. CURRENT MEDICATIONS: 1. Tylenol. 2. Lipitor. 3. Tums. 4. Vitamins. 5. Aricept. 6. Lovenox. 7. Folvite. 8. Glucotrol. 9. Lactated Ringer's. 10. Levothyroxine. 11. Lisinopril. 12. Melatonin. 13. Zofran. 14. Protonix. 15. Ultram. PHYSICAL EXAMINATION: VITAL SIGNS: T-max 98.5, blood pressure 120/75, pulse 69, respirations 18, and O2 saturation 96%. SKIN: Not remarkable. The patient has a peripheral IV access. She is voiding in the diaper. HEENT: No lymphadenopathy. She is awake, appears in no distress. Ocular movements conjugate. Oral cavity moist. Few teeth remaining. Teeth have been removed lately to fit her for dentures. NECK: Without jugular vein distention. LUNGS: With coarse inspiratory crackles at lung bases. Those are somewhat similar to previous evaluations due to her pulmonary fibrosis. HEART: S1 and S2, regular rate without murmurs. ABDOMEN: Soft, not distended. Has not had any bowel movement since admission. : No bladder distention. She is incontinent of urine. MUSCULOSKELETAL: Has chronic arthrosis in joints, right and left TKRs without inflammatory changes. EXTREMITIES: Pulses 1+ in dorsalis pedis. She is able to move extremities. Plantar response are flexor. NEUROLOGIC: She is awake, oriented to self and place, did not know the date. She did recognize her daughter. Follow some commands. LABORATORY DATA: The labs have been reviewed. IMAGING STUDIES: We have a renal ultrasound from October 13, mild right-sided hydronephrosis, bilateral renal cortical thinning. Last echocardiogram from March with EF 55% to 60%, ventricular hypertrophy, sclerotic aortic valve, trivial aortic regurgitation, mild tricuspid regurgitation. ASSESSMENT: 1. Type 2 diabetes, hypertension, previous episode of pyelonephritis with bacteremia due to extended-spectrum beta-lactamase Escherichia coli treated twice for the first time with nitrofurantoin with recrudescence and then with protracted IV ertapenem through a PICC line. 2. Nausea and diarrhea with some abdominal cramps, mild shortness of breath, and some coughing spells. This was not associated with neutrophilia; although, the labs in [place] showed a mild white cell count elevation 12.7. DISCUSSION: The main concern here is that I do not see any samples submitted for urine cultures. Urinalysis was abnormal and evidently one of the concerns with the recrudescence of the previous UTI that she had with pyelonephritis. I do not see blood cultures either. The other possibility would be a gastrointestinal illness, particularly C. difficile. Viral infection involvement of respiratory tract needs to be considered too. We will put on hold meropenem and monitor her status and submit cultures tomorrow, C. difficile in stool has been already ordered. We will order a chest x-ray. Job ID: [id number]
[2018-10-13] MEDS: Melatonin 3 MG TAB PO SCH (20:37)
[2018-10-13] MEDS: Donepezil HCl 10 MG TAB PO SCH (20:38)
[2018-10-13] MEDS: Atorvastatin Calcium 40 MG TAB PO SCH (20:38)
[2018-10-13] MEDS: Lactated Ringer's 1,000 ML IV SCH (20:38)
[2018-10-14] MEDS: Levothyroxine Sodium 125 MCG TAB PO SCH (05:28)
--- NOTE | 2018-10-14 05:53 | PDOC.FM ---
- Subjective Subjective: Patient feeling cold this AM, otherwise no complaints. - Objective Vital Signs & Weight: Vital Signs (12 hours) Temp Pulse Resp BP Pulse Ox 10/13/18 20:00 98.2 F 85 18 116/71 94 L Weight Weight 84.368 kg I&O: 10/12/18 10/13/18 10/14/18 06:59 06:59 06:59 Intake Total 360 Balance 360 Result Diagrams: 10/14/18 06:27 10/14/18 06:27 Phys Exam - Physical Examination Constitutional: NAD HEENT: moist MMs Respiratory: no wheezing crackles diffusely Cardiovascular: RRR, no significant murmur Gastrointestinal: soft, non-tender, no distention, positive bowel sounds Musculoskeletal: no edema, pulses present Psychiatric: normal affect Skin: no rash, normal turgor, cap refill <2 seconds Dx/Plan (1) UTI (urinary tract infection) Status: Acute (2) Sepsis Code(s): A41.9 - SEPSIS, UNSPECIFIED ORGANISM Status: Acute (3) NEENA (acute kidney injury) Code(s): N17.9 - ACUTE KIDNEY FAILURE, UNSPECIFIED Status: Acute (4) Anemia Code(s): D64.9 - ANEMIA, UNSPECIFIED Status: Chronic (5) Dehydration Code(s): E86.0 - DEHYDRATION Status: Acute (6) CAD (coronary artery disease) Code(s): I25.10 - ATHSCL HEART DISEASE OF [place] CORONARY ARTERY W/O ANG PCTRS Status: Chronic Qualifiers: Coronary Disease-Associated Artery/Lesion type: [place] artery [place] vs. transplanted heart: [place] heart Associated angina: without angina Qualified Code(s): I25.10 - Atherosclerotic heart disease of [place] coronary artery without angina pectoris (7) Dementia Code(s): F03.90 - UNSPECIFIED DEMENTIA WITHOUT BEHAVIORAL DISTURBANCE Status: Chronic Qualifiers: Dementia type: unspecified type (8) Diabetes mellitus Code(s): E11.9 - TYPE 2 DIABETES MELLITUS WITHOUT COMPLICATIONS Status: Chronic Qualifiers: Diabetes mellitus type: type 2 Diabetes mellitus retirement insulin use: without retirement use Diabetes mellitus complication status: with kidney complications Diabetes mellitus complication detail: with chronic kidney disease Chronic kidney disease stage: stage 2 (mild) Qualified Code(s): E11.22 - Type 2 diabetes mellitus with diabetic chronic kidney disease; N18.2 - Chronic kidney disease, stage 2 (mild) (9) Dyslipidemia Code(s): E78.5 - HYPERLIPIDEMIA, UNSPECIFIED Status: Chronic (10) Hypothyroidism Code(s): E03.9 - HYPOTHYROIDISM, UNSPECIFIED Status: Chronic Qualifiers: Hypothyroidism type: unspecified Qualified Code(s): E03.9 - Hypothyroidism , unspecified - Plan Plan: Sepsis 2/2 UTI - Leukocytosis, fever, hypotensive on initial presentation. Lactic 2.2. BP responded to 2L fluid resuscitation. - received 1 dose rocephin in ED. - Previous UTI admission, blood culture grew MDR e coli responsive to meropenem requiring 3 wks IV antibiotics/PICC, Dr Sandhu was on case - zofran prn - Urine cx ([place] [facility], in a separate chart)- resistant to amp, gent, and bactrim - blood cultures ([place] [facility]) - no growth to date - Started meropenem (10/12), stopped 10/13, will restart rocephin today. Pt reports rash when she had penicillin many years ago, not anaphylaxis. Will monitor - Consult Dr. Sandhu, recommendations appreciated - US kidneys (bilat) shows hydronephrosis Rt kidney, renal cortical thinning - Stopped IV fluids Mild right-sided hydronephrosis, concern for obstruction vs pylonephritis - renal US showed Rt hydronephrosis, bilat renal cortical thinning - If starts fevering or showing other clinical signs of worsening infection, consider CT to look for stone - start rocephin today LLL Bronchiectasis, concern for pneumonia - CT chest in [place] showed LLL bronchiectasis, LLL peripheral infiltrates suspect chronic fibrotic changes - Pt states she has had previous lung surgery, has scar on right upper back, states they were worried about lung cancer but findings benign - CXR 10/13 compared to 10/12- slight increased parenchymal density LLL, similar to CT scan - Will trend a procal, will consider starting antibiotics for CAP Concern for CHF - CXR showed cardiomegaly, also present in 2014 - diffuse crackles on exam, BNP 91 - Echo 03/2018 showed EF 55-60%, possible diastolic dysfunction. - monitor for signs of volume overload. Diarrhea, resolved - canceling c diff order - continue home probiotics NEENA 2/2 volume depletion, improving - Cr 1.88-> 1.4 -> 1.16, baseline 0.8 in 03/2018 - d/c IV fluids - monitor on am BMP Chronic normocytic anemia - Hgb 10.3, at baseline compared to prior - monitor on am CBC HTN - restart home lisinopril as BP improved overnight, hold carvedilol for now HLD - continue home atorvastatin DM2 - continue home glipizide - A1C 9.0 - start Lantus 5 units - BG 330 on admission, accuchecks, SSI overnight Hypothyroid - continue home synthroid Rheumatoid arthritis - hold home methotrexate, enbrel (on wednesdays). Has vicodin and tramadol on home med list as well. Urinary incontinence - continue home oxybutynin GERD - continue home protonix Dementia - continue home donepezil PCP: Dr. Escudero Diet: CC, LUCIA Ppx: Lovenox Dispo: medical inpatient, expect stay >2 midnights Addendum - Attending - Attending Attestation Date/Time: 10/14/18 1919 I personally evaluated the patient and discussed the management with Dr. Rajendra Marquis I agree with the History, Examination, Assessment and Plan documented above with any addition or exceptions noted below. See Culture results rec [facility] pending Dr Sandhu further recommendations.
[2018-10-14 06:42] LABS: #Basophils 0.1 thou/uL (0.0-0.2); #Eosinphils 0.5 thou/uL (0.0-0.7); #Monocytes 0.8 thou/uL (0.11-0.59); %Basophils 0.7 % (0.0-1.0); %Eosinophils 4.4 % (0.0-10.0); %Lymphocytes 19.2 % (21.0-51.0); %Neutrophils 67.7 % (42.0-75.0); Hemoglobin 10.5 g/dL (12.0-16.0); Mean Corpuscular HGB CONC 31.7 g/dL (32.0-36.0); Mean Corpuscular Hemoglobin 30.4 pg (27.0-31.0); Mean Platelet Volume 7.2 fL (7.4-10.4); Platelet Count 215 thou/uL (130-400); RBC Distribution Width 15.9 % (11.5-14.5); Red Blood Cell (RBC) Count 3.46 mill/uL (4.20-5.40); White Blood Cell (WBC) Count 10.4 thou/uL (4.8-10.8)
[2018-10-14 07:03] LABS: Anion Gap 14 mmol/L (10-20); BUN (Urea Nitrogen) 17 mg/dL (9.8-20.1); Calc. Creatinine Clearance 50 mL/min (70-130); Calcium 9.7 mg/dL (7.8-10.44); Carbon Dioxide 25 mmol/L (23-31); Chloride 103 mmol/L (98-107); Estimated GFR-MDRD 46; Glucose 111 mg/dL (83-110); Potassium 4.2 mmol/L (3.5-5.1); Sodium 138 mmol/L (136-145)
[2018-10-14] MEDS ORDERED: Lactated Ringer's 1,000 ML IV SCH (09:14)
[2018-10-14] MEDS: glipiZIDE 5 MG TAB PO SCH (09:28)
[2018-10-14] MEDS: Insulin Glargine 5 UNITS in Pre-Filled Syringe 1 EACH SC SCH (09:28)
[2018-10-14] MEDS: Enoxaparin Sodium 40 MG/0.4 ML SYRINGE SC SCH (09:28)
[2018-10-14] MEDS: Folic Acid 1 MG TAB PO SCH (09:29)
[2018-10-14] MEDS: Lisinopril 10 MG TAB PO SCH (09:29)
[2018-10-14] MEDS: Pantoprazole 40 MG GRANULES PACKET PO SCH ×2 (09:29→20:41)
[2018-10-14] MEDS: Oxybutynin 5 MG TAB PO SCH ×2 (09:29→20:40)
[2018-10-14] MEDS: Lactated Ringer's 1,000 ML IV SCH (09:42)
[2018-10-14] MEDS: cefTRIAXone\\ROCEPHIN 1 GM in Sodium Chloride 0.9% 100 ML IVPB SCH (13:31)
--- NOTE | 2018-10-14 18:16 | PRG ---
DATE OF SERVICE: 10/14/2018 SUBJECTIVE: Ms. Hinson denies any chest pain. No abdominal pain or diarrhea. OBJECTIVE: VITAL SIGNS: T-max 98.9, blood pressure 120/80, pulse 83, respirations 16 to 20. GENERAL: The patient is awake, follows commands. LUNGS: Symmetric air entry. Few crackles at the bases. HEART: S1, S2. Regular rate without murmurs. ABDOMEN: Soft, not distended. EXTREMITIES: Moves extremities equally. LABORATORY DATA: White cell count 10.4, hemoglobin 10.5, platelets 215. Creatinine is at 1.12, which is down from admission. MICROBIOLOGY: She has actually another chart in the database and this chart contained the urine culture from October 12, which shows E. coli. This is a different E. coli than all the ones that she had before. This one is resistant to gentamicin and Bactrim susceptible to quinolones. The blood cultures thus far is negative from October 12 as well. She had a CT of chest, which showed left lower lobe bronchiectasis. There is an infiltrative area in the left lower lobe peripherally which could be a chronic infection. Fibrotic changes noted. ASSESSMENT AND DISCUSSION: Type 2 diabetes, hypertension and previous episode of pyelonephritis with bacteremia due to extended spectrum beta lactamase Escherichia coli treated twice. The second time with a PICC line and protracted IV ertapenem, now she comes with nausea, diarrhea, and some abdominal cramps and she does have positive urine culture with abnormal urinalysis. In view of her x-ray findings , we will check respiratory virus PCR if not done yet and make sure she does not have viral respiratory tract infection. Regarding the urine, her cognitive issues and poor recall make it somewhat difficult to take her subjective information at face value, side of treating this finding in the urine. The other issue would be the possibility of Clostridium difficile and she has loose stools or liquid stools and will have to be tested for Clostridium difficile. She have a chronic infection such as mycobacterial infection, particularly atypical mycobacterial infection certainly is a possibility, as well as fungal infections in the respiratory tract are to be considered. May order sputums for testing and culture, to be followed in the outpatient setting once she gets discharged. Job ID: [id number] [facility]
[2018-10-14] MEDS: HumaLOG 300 UNITS/3 ML VIAL SC PRN (18:28)
[2018-10-14] MEDS: HYDROcodone/Acetaminophen 10/325 mg Tablet PO PRN (20:40)
[2018-10-14] MEDS: Donepezil HCl 10 MG TAB PO SCH (20:41)
[2018-10-14] MEDS: Atorvastatin Calcium 40 MG TAB PO SCH (20:41)
[2018-10-14] MEDS: Melatonin 3 MG TAB PO SCH (22:16)
[2018-10-15] MEDS: Levothyroxine Sodium 125 MCG TAB PO SCH (05:09)
--- NOTE | 2018-10-15 08:45 | PDOC.FM ---
- Subjective Subjective: Patient feeling well this AM just tired, no diarrhea yesterday per nursing. - Objective Vital Signs & Weight: Vital Signs (12 hours) Temp Pulse Resp BP Pulse Ox 10/15/18 07:11 98.0 F 82 18 133/82 95 10/15/18 04:35 97.9 F 82 18 120/77 96 10/15/18 00:00 98.2 F 71 18 134/68 96 Weight Admit Weight 84.368 kg Weight 84.368 kg I&O: 10/14/18 10/15/18 10/16/18 06:59 06:59 06:59 Intake Total 360 1080 Balance 360 1080 Result Diagrams: 10/15/18 08:49 10/15/18 08:49 Phys Exam - Physical Examination Neck: no nodes, no JVD crackles at bases Cardiovascular: RRR, no significant murmur Gastrointestinal: soft, non-tender, no distention, positive bowel sounds trace pitting edema Neurological: normal sensation, moves all 4 limbs Psychiatric: normal affect Skin: no rash, normal turgor, cap refill <2 seconds Dx/Plan (1) UTI (urinary tract infection) Status: Acute (2) Sepsis Code(s): A41.9 - SEPSIS, UNSPECIFIED ORGANISM Status: Acute (3) NEENA (acute kidney injury) Code(s): N17.9 - ACUTE KIDNEY FAILURE, UNSPECIFIED Status: Acute (4) Anemia Code(s): D64.9 - ANEMIA, UNSPECIFIED Status: Chronic (5) Dehydration Code(s): E86.0 - DEHYDRATION Status: Acute (6) CAD (coronary artery disease) Code(s): I25.10 - ATHSCL HEART DISEASE OF [place] CORONARY ARTERY W/O ANG PCTRS Status: Chronic Qualifiers: Coronary Disease-Associated Artery/Lesion type: [place] artery [place] vs. transplanted heart: [place] heart Associated angina: without angina Qualified Code(s): I25.10 - Atherosclerotic heart disease of [place] coronary artery without angina pectoris (7) Dementia Code(s): F03.90 - UNSPECIFIED DEMENTIA WITHOUT BEHAVIORAL DISTURBANCE Status: Chronic Qualifiers: Dementia type: unspecified type (8) Diabetes mellitus Code(s): E11.9 - TYPE 2 DIABETES MELLITUS WITHOUT COMPLICATIONS Status: Chronic Qualifiers: Diabetes mellitus type: type 2 Diabetes mellitus [facility] insulin use: without intermediate accountant use Diabetes mellitus complication status: with kidney complications Diabetes mellitus complication detail: with chronic kidney disease Chronic kidney disease stage: stage 2 (mild) Qualified Code(s): E11.22 - Type 2 diabetes mellitus with diabetic chronic kidney disease; N18.2 - Chronic kidney disease, stage 2 (mild) (9) Dyslipidemia Code(s): E78.5 - HYPERLIPIDEMIA, UNSPECIFIED Status: Chronic (10) Hypothyroidism Code(s): E03.9 - HYPOTHYROIDISM, UNSPECIFIED Status: Chronic Qualifiers: Hypothyroidism type: unspecified Qualified Code(s): E03.9 - Hypothyroidism , unspecified - Plan Plan: Sepsis 2/2 UTI - Leukocytosis, fever, hypotensive on initial presentation. Lactic 2.2. BP responded to 2L fluid resuscitation. - received 1 dose rocephin in ED. - Previous UTI admission, blood culture grew MDR e coli responsive to meropenem requiring 3 wks IV antibiotics/PICC, Dr Sandhu was on case - zofran prn - Urine cx ([place] [facility], in a separate chart)- sensitive to levaquin and rocephin - blood cultures ([place] [facility]) - no growth to date - Started meropenem (10/12), stopped 10/13, - continuerocephin today. No new rash. Will switch to PO levaquin possibly tomorrow - Consult Dr. Sandhu, recommendations appreciated - US kidneys (bilat) shows hydronephrosis Rt kidney, renal cortical thinning Mild right-sided hydronephrosis, concern for obstruction vs pylonephritis - renal US showed Rt hydronephrosis, bilat renal cortical thinning - If starts fevering or showing other clinical signs of worsening infection, consider CT to look for stone - continue rocephin today LLL Bronchiectasis, concern for pneumonia - CT chest in [place] showed LLL bronchiectasis, LLL peripheral infiltrates suspect chronic fibrotic changes - Pt states she has had previous lung surgery, has scar on right upper back, states they were worried about lung cancer but findings benign - CXR 10/13 compared to 10/12- slight increased parenchymal density LLL, similar to CT scan - Procal decreased - Resp Viral panel pending - No respiratory sx currently Concern for CHF - CXR showed cardiomegaly, also present in 2014 - diffuse crackles on exam, BNP 91 - Echo 03/2018 showed EF 55-60%, possible diastolic dysfunction. - monitor for signs of volume overload. Diarrhea, resolved - continue home probiotics NEENA 2/2 volume depletion, improving - Cr 1.88-> 1.4 -> 1.16, baseline 0.8 in 03/2018 - d/c IV fluids - monitor on am BMP Chronic normocytic anemia - Hgb 10.3, at baseline compared to prior - monitor on am CBC HTN - restart home lisinopril as BP improved overnight, hold carvedilol for now HLD - continue home atorvastatin DM2 - continue home glipizide - A1C 9.0 - increase lantus to 8 - BG 330 on admission, accuchecks, SSI Hypothyroid - continue home synthroid Rheumatoid arthritis - hold home methotrexate, enbrel (on wednesdays). Has vicodin and tramadol on home med list as well. Urinary incontinence - continue home oxybutynin GERD - continue home protonix Dementia - continue home donepezil PCP: Dr. Escudero Diet: CC, HH Ppx: Lovenox Dispo: medical inpatient, expect stay >2 midnights CM: Patient will need rehab or SNF for decreased ADLs and weakness Addendum - Attending - Attending Attestation Date/Time: 10/15/18 7709 I personally evaluated the patient and discussed the management with Dr. Rajendra Marquis I agree with the History, Examination, Assessment and Plan documented above with any addition or exceptions noted below.Convert to oral abx regard UTI and look into swing bed for de-conditioned. Appreciate Dr Sandhu recommendation will collect sputum further study and outpt f/u.No loose stool if recurs will check C. dificile
[2018-10-15 09:14] LABS: #Eosinphils 0.4 thou/uL (0.0-0.7); #Lymphocytes 1.7 thou/uL (1.20-3.40); #Monocytes 0.9 thou/uL (0.11-0.59); #Neutrophils 4.8 thou/uL (1.40-6.50); %Basophils 0.6 % (0.0-1.0); %Eosinophils 4.5 % (0.0-10.0); %Lymphocytes 22.3 % (21.0-51.0); %Neutrophils 61.7 % (42.0-75.0); Hemoglobin 10.4 g/dL (12.0-16.0); Mean Corpuscular HGB CONC 33.4 g/dL (32.0-36.0); Mean Corpuscular Hemoglobin 31.9 pg (27.0-31.0); Mean Corpuscular Volume 95.4 fL (78.0-98.0); Mean Platelet Volume 7.2 fL (7.4-10.4); Platelet Count 205 thou/uL (130-400); RBC Distribution Width 15.7 % (11.5-14.5); Red Blood Cell (RBC) Count 3.26 mill/uL (4.20-5.40); White Blood Cell (WBC) Count 7.8 thou/uL (4.8-10.8)
[2018-10-15] MEDS ORDERED: Insulin Glargine 8 UNITS in Pre-Filled Syringe 1 EACH SC SCH ×2 (09:18→09:30)
[2018-10-15 09:29] LABS: Anion Gap 15 mmol/L (10-20); BUN (Urea Nitrogen) 14 mg/dL (9.8-20.1); Calc. Creatinine Clearance 50 mL/min (70-130); Calcium 9.3 mg/dL (7.8-10.44); Carbon Dioxide 25 mmol/L (23-31); Chloride 103 mmol/L (98-107); Estimated GFR-MDRD 46; Glucose 198 mg/dL (83-110); Potassium 3.7 mmol/L (3.5-5.1); Sodium 139 mmol/L (136-145)
[2018-10-15] MEDS: glipiZIDE 5 MG TAB PO SCH (10:03)
[2018-10-15] MEDS: Lisinopril 10 MG TAB PO SCH (10:03)
[2018-10-15] MEDS: Pantoprazole 40 MG GRANULES PACKET PO SCH ×2 (10:06→20:36)
[2018-10-15] MEDS: Oxybutynin 5 MG TAB PO SCH ×2 (10:07→20:36)
[2018-10-15] MEDS: Enoxaparin Sodium 40 MG/0.4 ML SYRINGE SC SCH (10:07)
[2018-10-15] MEDS: Folic Acid 1 MG TAB PO SCH (10:07)
[2018-10-15] MEDS: Insulin Glargine 5 UNITS in Pre-Filled Syringe 1 EACH SC SCH (11:37)
[2018-10-15] MEDS: cefTRIAXone\\ROCEPHIN 1 GM in Sodium Chloride 0.9% 100 ML IVPB SCH (12:55)
[2018-10-15] MEDS: HumaLOG 300 UNITS/3 ML VIAL SC PRN ×2 (13:10→20:37)
--- NOTE | 2018-10-15 13:27 | PRG ---
DATE OF SERVICE: 10/15/2018 SUBJECTIVE: Ms. Hinson is feeling better. Still with some cough particularly at night. No chest pain. No abdominal pain. No dysuria. Still with some loose stool. OBJECTIVE: VITAL SIGNS: She has been afebrile. GENERAL: Awake and alert. LUNGS: Symmetric air entry. Few crackles on the right base. HEART: S1 and S2, regular rate. ABDOMEN: Soft. Not distended or tender. LABORATORY DATA: White cell count 7.8, hemoglobin 10.4, platelets 205. Sodium 139, creatinine 1.12, which is improved from admission. Blood culture negative so far. E. coli retrieved from the urine culture on admission, which had a different susceptibility profile compared with the ones that she has had in the past. She also had CT of chest, which showed those atypical areas of infiltration, which appear chronic and not worse than before. ASSESSMENT: Rheumatoid arthritis, type 2 diabetes, on Enbrel and another immunosuppressive medications, admitted with fever and cough, abnormal urinalysis for the history of prior episodes of urinary tract infection. At this time, the isolate is a more sensitive however, the findings in the CT scan are concerning for a chronic inflammatory process with possible association with immunosuppressive regimens. In that regard, I would recommend working up for the opportunistic pathogens that can occur with TNF inhibitors used for management of rheumatoid arthritis including mycobacterial pathogens, histoplasmosis, Cryptococcus neoformans infection. We will submit assays and cultures and sputum for those. In terms of discharge planning, she could be transitioned to oral quinolone. There is the issue of the Clostridium difficile possibility and we will continue to be concerned going forward on C. diff test yet for this admission. We will be glad to follow her up in the clinic. We will have to get respiratory therapy to help us out with sputum induction for sampling for mycobacterial and fungal cultures. We will submit histo and crypto antigen in the urine and serum. Job ID: [id number] [facility]
[2018-10-15] MEDS: Donepezil HCl 10 MG TAB PO SCH (20:36)
[2018-10-15] MEDS: Melatonin 3 MG TAB PO SCH (20:36)
[2018-10-15] MEDS: Atorvastatin Calcium 40 MG TAB PO SCH (20:36)
[2018-10-15] MEDS ORDERED: guaiFENesin/DM ER PO SCH (21:30)
[2018-10-16] MEDS: Levothyroxine Sodium 125 MCG TAB PO SCH (05:23)
[2018-10-16 07:26] LABS: #Basophils 0.1 thou/uL (0.0-0.2); #Eosinphils 0.3 thou/uL (0.0-0.7); #Lymphocytes 2.1 thou/uL (1.20-3.40); #Neutrophils 4.4 thou/uL (1.40-6.50); %Basophils 1.1 % (0.0-1.0); %Eosinophils 4.2 % (0.0-10.0); %Lymphocytes 26.3 % (21.0-51.0); %Monocytes 12.6 % (0.0-10.0); %Neutrophils 55.8 % (42.0-75.0); Hemoglobin 10.3 g/dL (12.0-16.0); Mean Corpuscular HGB CONC 33.1 g/dL (32.0-36.0); Mean Corpuscular Hemoglobin 31.7 pg (27.0-31.0); Mean Corpuscular Volume 95.7 fL (78.0-98.0); Platelet Count 206 thou/uL (130-400); RBC Distribution Width 15.9 % (11.5-14.5); Red Blood Cell (RBC) Count 3.24 mill/uL (4.20-5.40)
[2018-10-16 07:52] LABS: Anion Gap 15 mmol/L (10-20); BUN (Urea Nitrogen) 14 mg/dL (9.8-20.1); Calc. Creatinine Clearance 54 mL/min (70-130); Calcium 9.3 mg/dL (7.8-10.44); Carbon Dioxide 24 mmol/L (23-31); Chloride 104 mmol/L (98-107); Estimated GFR-MDRD 51; Glucose 140 mg/dL (83-110); Potassium 4.1 mmol/L (3.5-5.1); Sodium 139 mmol/L (136-145)
[2018-10-16] MEDS: Lisinopril 10 MG TAB PO SCH (08:42)
[2018-10-16] MEDS: Enoxaparin Sodium 40 MG/0.4 ML SYRINGE SC SCH (08:42)
[2018-10-16] MEDS: glipiZIDE 5 MG TAB PO SCH (08:42)
[2018-10-16] MEDS: Pantoprazole 40 MG GRANULES PACKET PO SCH ×2 (08:43→20:31)
[2018-10-16] MEDS: Insulin Glargine 11 UNITS in Pre-Filled Syringe 1 EACH SC SCH (08:43)
[2018-10-16] MEDS: Oxybutynin 5 MG TAB PO SCH ×2 (08:43→20:31)
[2018-10-16] MEDS: Folic Acid 1 MG TAB PO SCH (08:43)
[2018-10-16] MEDS ORDERED: Insulin Glargine 8 UNITS in Pre-Filled Syringe 1 EACH SC SCH (09:00)
[2018-10-16] MEDS: HYDROcodone/Acetaminophen 10/325 mg Tablet PO PRN ×2 (10:52→20:37)
--- NOTE | 2018-10-16 12:05 | PDOC.FM ---
- Subjective Subjective: No acute events overnight. Denies dysuria, fevers, chills. - Objective Vital Signs & Weight: Vital Signs (12 hours) Temp Pulse Resp BP BP Pulse Ox 10/16/18 10:33 97.7 F 78 18 133/79 97 10/16/18 08:51 80 20 10/16/18 08:42 113/76 10/16/18 08:00 95 10/16/18 07:26 98.0 F 75 18 113/76 95 Weight Admit Weight 84.368 kg Weight 84.368 kg I&O: 10/15/18 10/16/18 10/17/18 06:59 06:59 06:59 Intake Total 1080 660 Balance 1080 660 Result Diagrams: 10/16/18 06:46 10/16/18 06:46 Phys Exam - Physical Examination Constitutional: NAD HEENT: PERRLA, moist MMs, sclera anicteric Respiratory: no wheezing, clear to auscultation bilateral Cardiovascular: RRR, no significant murmur Gastrointestinal: soft, non-tender, positive bowel sounds Musculoskeletal: no edema Neurological: non-focal, moves all 4 limbs Psychiatric: normal affect, A&O x 3 Dx/Plan (1) Immunosuppression due to drug therapy Code(s): Z79.899 - OTHER PRISON (CURRENT) DRUG THERAPY Status: Acute (2) Rheumatoid arthritis Code(s): M06.9 - RHEUMATOID ARTHRITIS, UNSPECIFIED Status: Acute (3) NEENA (acute kidney injury) Code(s): N17.9 - ACUTE KIDNEY FAILURE, UNSPECIFIED Status: Acute (4) Sepsis Code(s): A41.9 - SEPSIS, UNSPECIFIED ORGANISM Status: Acute (5) UTI (urinary tract infection) Status: Acute (6) Dementia Code(s): F03.90 - UNSPECIFIED DEMENTIA WITHOUT BEHAVIORAL DISTURBANCE Status: Chronic Qualifiers: Dementia type: unspecified type (7) Diabetes mellitus Code(s): E11.9 - TYPE 2 DIABETES MELLITUS WITHOUT COMPLICATIONS Status: Chronic Qualifiers: Diabetes mellitus type: type 2 Diabetes mellitus terminal superintendent insulin use: without terminal superintendent use Diabetes mellitus complication status: with kidney complications Diabetes mellitus complication detail: with chronic kidney disease Chronic kidney disease stage: stage 2 (mild) Qualified Code(s): E11.22 - Type 2 diabetes mellitus with diabetic chronic kidney disease; N18.2 - Chronic kidney disease, stage 2 (mild) - Plan Plan: Uncomplicated UTI -sepsis resolved -No WBC, afebrile -Will switch to oral levaquin for 3 days duration - Monitor today to see how seh does Mild right-sided hydronephrosis, concern for obstruction vs pylonephritis - renal US showed Rt hydronephrosis, bilat renal cortical thinning - If starts fevering or showing other clinical signs of worsening infection, consider CT to look for stone LLL Bronchiectasis, concern for pneumonia - CT chest in [place] showed LLL bronchiectasis, LLL peripheral infiltrates suspect chronic fibrotic changes - Pt states she has had previous lung surgery, has scar on right upper back, states they were worried about lung cancer but findings benign - CXR 10/13 compared to 10/12- slight increased parenchymal density LLL, similar to CT scan - Procal decreased - Resp Viral panel pending - No respiratory sx currently Concern for CHF - CXR showed cardiomegaly, also present in 2015 - diffuse crackles on exam, BNP 91 - Echo 03/2018 showed EF 55-60%, possible diastolic dysfunction. - monitor for signs of volume overload. Diarrhea, resolved - continue home probiotics NEENA, resolved Chronic normocytic anemia - Hgb 10.3, at baseline compared to prior - monitor on am CBC HTN - restart home lisinopril as BP improved overnight, hold carvedilol for now HLD - continue home atorvastatin DM2 - continue home glipizide - A1C 9.0 - increase lantus to 8 - BG 330 on admission, accuchecks, SSI Hypothyroid - continue home synthroid Rheumatoid arthritis - hold home methotrexate, enbrel (on wednesdays). Has vicodin and tramadol on home med list as well. Urinary incontinence - continue home oxybutynin GERD - continue home protonix Dementia - continue home donepezil PCP: Dr. Escudero Diet: CC, HH Ppx: Lovenox Dispo: medical inpatient, expect stay >2 midnights CM: Uncomplicated UTI-Will switch to po levaquin today for 3 day duration. Monitor today and see how does with plan to d/c home with HH tomorrow (if family 's preference) Addendum - Attending - Attending Attestation Date/Time: 10/16/18 0859 I personally evaluated the patient and discussed the management with I agree with the History, Examination, Assessment and Plan documented above with any addition or exceptions noted below. Appreciate Recommendation Dr Sandhu not able induce sputum blood drawn r/o opportunistic infection lung. transition po ABX and d/c rehab ,[facility].
[2018-10-16] MEDS: cefTRIAXone\\ROCEPHIN 1 GM in Sodium Chloride 0.9% 100 ML IVPB SCH ×2 (12:52→14:12)
[2018-10-16] MEDS: Atorvastatin Calcium 40 MG TAB PO SCH (20:31)
[2018-10-16] MEDS: Melatonin 3 MG TAB PO SCH (20:31)
[2018-10-16] MEDS: Donepezil HCl 10 MG TAB PO SCH (20:31)
[2018-10-17] MEDS ORDERED: Lidocaine 1% (PF) 30 ML VIAL ONE (00:58)
[2018-10-17] MEDS: Levothyroxine Sodium 125 MCG TAB PO SCH (05:58)
[2018-10-17] MEDS ORDERED: predniSONE 5 MG TAB PO PRN (06:39)
--- NOTE | 2018-10-17 06:48 | PDOC.FM ---
- Subjective Subjective: No acute events overnight. Patient denies fevers, chills, dysuria. - Objective MAR Reviewed: Yes Vital Signs & Weight: Vital Signs (12 hours) Temp Pulse Resp BP Pulse Ox 10/16/18 20:00 98.7 F 81 18 123/69 95 Weight Admit Weight 84.368 kg Weight 84.368 kg I&O: 10/15/18 10/16/18 10/17/18 06:59 06:59 06:59 Intake Total 3257 209 3625 Balance 3659 881 0626 Result Diagrams: 10/17/18 07:43 10/17/18 07:43 Phys Exam - Physical Examination Constitutional: NAD HEENT: PERRLA, moist MMs Respiratory: no wheezing, clear to auscultation bilateral Cardiovascular: RRR, no significant murmur Gastrointestinal: soft, non-tender Neurological: non-focal, moves all 4 limbs Dx/Plan (1) UTI (urinary tract infection) Status: Acute (2) Immunosuppression due to drug therapy Code(s): Z79.899 - OTHER LINE DANCER (CURRENT) DRUG THERAPY Status: Acute (3) Rheumatoid arthritis Code(s): M06.9 - RHEUMATOID ARTHRITIS, UNSPECIFIED Status: Acute (4) NEENA (acute kidney injury) Code(s): N17.9 - ACUTE KIDNEY FAILURE, UNSPECIFIED Status: Acute (5) Sepsis Code(s): A41.9 - SEPSIS, UNSPECIFIED ORGANISM Status: Acute (6) Dementia Code(s): F03.90 - UNSPECIFIED DEMENTIA WITHOUT BEHAVIORAL DISTURBANCE Status: Chronic Qualifiers: Dementia type: unspecified type (7) Diabetes mellitus Code(s): E11.9 - TYPE 2 DIABETES MELLITUS WITHOUT COMPLICATIONS Status: Chronic Qualifiers: Diabetes mellitus type: type 2 Diabetes mellitus detention insulin use: without rn long term care use Diabetes mellitus complication status: with kidney complications Diabetes mellitus complication detail: with chronic kidney disease Chronic kidney disease stage: stage 2 (mild) Qualified Code(s): E11.22 - Type 2 diabetes mellitus with diabetic chronic kidney disease; N18.2 - Chronic kidney disease, stage 2 (mild) - Plan Plan: Uncomplicated UTI -sepsis resolved -No WBC, afebrile -Continue oral levaquin for 3 days duration Mild right-sided hydronephrosis, concern for obstruction vs pylonephritis - renal US showed Rt hydronephrosis, bilat renal cortical thinning - If starts fevering or showing other clinical signs of worsening infection, consider CT to look for stone LLL Bronchiectasis, concern for pneumonia - CT chest in [place] showed LLL bronchiectasis, LLL peripheral infiltrates suspect chronic fibrotic changes - Pt states she has had previous lung surgery, has scar on right upper back, states they were worried about lung cancer but findings benign - CXR 10/13 compared to 10/12- slight increased parenchymal density LLL, similar to CT scan - Procal decreased - Resp Viral panel pending - No respiratory sx currently Concern for CHF - CXR showed cardiomegaly, also present in 2015 - diffuse crackles on exam, BNP 91 - Echo 03/2018 showed EF 55-60%, possible diastolic dysfunction. - monitor for signs of volume overload. Diarrhea, resolved - continue home probiotics NEENA, resolved Chronic normocytic anemia - Hgb 10.3, at baseline compared to prior - monitor on am CBC HTN - restart home lisinopril as BP improved overnight, hold carvedilol for now HLD - continue home atorvastatin DM2 - continue home glipizide - A1C 9.0 - Lantus 11 - BG 330 on admission, accuchecks, SSI Hypothyroid - continue home synthroid Rheumatoid arthritis - hold home methotrexate, enbrel (on wednesdays). Has vicodin and tramadol on home med list as well. Urinary incontinence - continue home oxybutynin GERD - continue home protonix Dementia - continue home donepezil PCP: Dr. Escudero Diet: CC, HH Ppx: Lovenox Dispo: medical inpatient, expect stay >2 midnights CM: Started metformin. Milk of magnesia for constipation. Uncomplicated UTI- continue po levaquin today for 3 day duration. Pending swing bed. Addendum - Attending - Attending Attestation Date/Time: 10/18/18 1835 I personally evaluated the patient and discussed the management with Dr. [] I agree with the History, Examination, Assessment and Plan documented above with any addition or exceptions noted below.
[2018-10-17] MEDS ORDERED: metFORMIN 500 MG TAB PO SCH (08:00)
[2018-10-17 08:28] LABS: #Basophils 0.1 thou/uL (0.0-0.2); #Eosinphils 0.4 thou/uL (0.0-0.7); #Lymphocytes 2.2 thou/uL (1.20-3.40); #Monocytes 0.7 thou/uL (0.11-0.59); #Neutrophils 5.8 thou/uL (1.40-6.50); %Basophils 0.7 % (0.0-1.0); %Eosinophils 3.8 % (0.0-10.0); %Lymphocytes 24.4 % (21.0-51.0); %Monocytes 7.6 % (0.0-10.0); %Neutrophils 63.5 % (42.0-75.0); Hemoglobin 11.1 g/dL (12.0-16.0); Mean Corpuscular HGB CONC 32.7 g/dL (32.0-36.0); Mean Corpuscular Hemoglobin 31.6 pg (27.0-31.0); Mean Corpuscular Volume 96.4 fL (78.0-98.0); Mean Platelet Volume 6.9 fL (7.4-10.4); Platelet Count 245 thou/uL (130-400); RBC Distribution Width 15.9 % (11.5-14.5); Red Blood Cell (RBC) Count 3.52 mill/uL (4.20-5.40); White Blood Cell (WBC) Count 9.2 thou/uL (4.8-10.8)
[2018-10-17] MEDS ORDERED: Milk Of Magnesia 30 ML UDCUP PO PRN (08:41)
[2018-10-17 08:45] LABS: Anion Gap 17 mmol/L (10-20); BUN (Urea Nitrogen) 15 mg/dL (9.8-20.1); Calc. Creatinine Clearance 47 mL/min (70-130); Calcium 9.7 mg/dL (7.8-10.44); Carbon Dioxide 22 mmol/L (23-31); Chloride 104 mmol/L (98-107); Estimated GFR-MDRD 44; Glucose 141 mg/dL (83-110); Potassium 4.1 mmol/L (3.5-5.1); Sodium 139 mmol/L (136-145)
[2018-10-17] MEDS: Folic Acid 1 MG TAB PO SCH (08:56)
[2018-10-17] MEDS: glipiZIDE 5 MG TAB PO SCH (08:56)
[2018-10-17] MEDS: Enoxaparin Sodium 40 MG/0.4 ML SYRINGE SC SCH (08:56)
[2018-10-17] MEDS: metFORMIN 500 MG TAB PO SCH (08:57)
[2018-10-17] MEDS: Oxybutynin 5 MG TAB PO SCH ×2 (08:57→19:58)
[2018-10-17] MEDS: Insulin Glargine 11 UNITS in Pre-Filled Syringe 1 EACH SC SCH (08:57)
[2018-10-17] MEDS: Lisinopril 10 MG TAB PO SCH (08:58)
[2018-10-17] MEDS: Pantoprazole 40 MG GRANULES PACKET PO SCH ×2 (08:58→20:00)
[2018-10-17] MEDS: HYDROcodone/Acetaminophen 10/325 mg Tablet PO PRN (08:59)
[2018-10-17] MEDS: Polyethylene Glycol 3350 17 GM Packet PO SCH (08:59)
[2018-10-17] MEDS: HumaLOG 300 UNITS/3 ML VIAL SC PRN (13:23)
[2018-10-17] MEDS: Atorvastatin Calcium 40 MG TAB PO SCH (19:58)
[2018-10-17] MEDS: Melatonin 3 MG TAB PO SCH (19:58)
[2018-10-17] MEDS: Donepezil HCl 10 MG TAB PO SCH (19:58)
--- NOTE | 2018-10-18 06:15 | PDOC.FM ---
- Subjective Subjective: Patient states she is feeling a lot better today, however states she has not had a BM for a few days. She was having diarrhea prior to her arrival to the hospital. - Objective Vital Signs & Weight: Vital Signs (12 hours) Temp Pulse Resp BP Pulse Ox 10/17/18 20:00 98.2 F 81 18 118/72 97 Weight Admit Weight 84.368 kg Weight 84.368 kg I&O: 10/16/18 10/17/18 10/18/18 06:59 06:59 06:59 Intake Total 660 1550 1420 Balance 660 1550 1420 Result Diagrams: 10/18/18 07:27 10/18/18 07:27 Phys Exam - Physical Examination Constitutional: NAD HEENT: PERRLA, moist MMs Respiratory: no wheezing, clear to auscultation bilateral Cardiovascular: RRR, no significant murmur Gastrointestinal: soft, non-tender, no distention, positive bowel sounds Musculoskeletal: no edema, pulses present Neurological: non-focal, moves all 4 limbs Psychiatric: normal affect Skin: no rash, normal turgor, cap refill <2 seconds Dx/Plan (1) UTI (urinary tract infection) Status: Acute (2) Sepsis Code(s): A41.9 - SEPSIS, UNSPECIFIED ORGANISM Status: Acute (3) NEENA (acute kidney injury) Code(s): N17.9 - ACUTE KIDNEY FAILURE, UNSPECIFIED Status: Acute (4) Anemia Code(s): D64.9 - ANEMIA, UNSPECIFIED Status: Chronic (5) Dehydration Code(s): E86.0 - DEHYDRATION Status: Acute (6) CAD (coronary artery disease) Code(s): I25.10 - ATHSCL HEART DISEASE OF [place] CORONARY ARTERY W/O ANG PCTRS Status: Chronic Qualifiers: Coronary Disease-Associated Artery/Lesion type: [place] artery [place] vs. transplanted heart: [place] heart Associated angina: without angina Qualified Code(s): I25.10 - Atherosclerotic heart disease of [place] coronary artery without angina pectoris (7) Dementia Code(s): F03.90 - UNSPECIFIED DEMENTIA WITHOUT BEHAVIORAL DISTURBANCE Status: Chronic Qualifiers: Dementia type: unspecified type (8) Diabetes mellitus Code(s): E11.9 - TYPE 2 DIABETES MELLITUS WITHOUT COMPLICATIONS Status: Chronic Qualifiers: Diabetes mellitus type: type 2 Diabetes mellitus terminal superintendent insulin use: without terminal superintendent use Diabetes mellitus complication status: with kidney complications Diabetes mellitus complication detail: with chronic kidney disease Chronic kidney disease stage: stage 2 (mild) Qualified Code(s): E11.22 - Type 2 diabetes mellitus with diabetic chronic kidney disease; N18.2 - Chronic kidney disease, stage 2 (mild) (9) Dyslipidemia Code(s): E78.5 - HYPERLIPIDEMIA, UNSPECIFIED Status: Chronic (10) Hypothyroidism Code(s): E03.9 - HYPOTHYROIDISM, UNSPECIFIED Status: Chronic Qualifiers: Hypothyroidism type: unspecified Qualified Code(s): E03.9 - Hypothyroidism , unspecified - Plan Plan: Uncomplicated UTI -sepsis resolved -No WBC, afebrile -Continue oral levaquin for 3 days duration Mild right-sided hydronephrosis, concern for obstruction vs pylonephritis - renal US showed Rt hydronephrosis, bilat renal cortical thinning - If starts fevering or showing other clinical signs of worsening infection, consider CT to look for stone LLL Bronchiectasis - CT chest in [place] showed LLL bronchiectasis, LLL peripheral infiltrates suspect chronic fibrotic changes - Pt states she has had previous lung surgery, has scar on right upper back, states they were worried about lung cancer but findings benign - CXR 10/13 compared to 10/12- slight increased parenchymal density LLL, similar to CT scan - Procal decreased - Resp Viral panel neg Concern for CHF - CXR showed cardiomegaly, also present in 2015 - diffuse crackles on exam, BNP 91 - Echo 03/2018 showed EF 55-60%, possible diastolic dysfunction. - monitor for signs of volume overload. Diarrhea, resolved - continue home probiotics NEENA, resolved Chronic normocytic anemia - Hgb 10.3, at baseline compared to prior HTN - restart home lisinopril as BP improved overnight, hold carvedilol for now HLD - continue home atorvastatin DM2 - continue home glipizide, resume home metformin 500 BID and continue to titrate up - A1C 9.0 - stop lantus as restarting metformin - BG 330 on admission, accuchecks, SSI Hypothyroid - continue home synthroid Rheumatoid arthritis - hold home methotrexate, enbrel (on wednesdays). Has vicodin and tramadol on home med list as well. Urinary incontinence - continue home oxybutynin GERD - continue home protonix Dementia - continue home donepezil PCP: Dr. Escudero Diet: CC, HH Ppx: Lovenox Dispo: medical inpatient, expect stay >2 midnights CM: Started metformin. Milk of magnesia for constipation. Uncomplicated UTI- continue po levaquin today for 3 day duration. Pending swing bed placement Addendum - Attending - Attending Attestation Date/Time: 10/18/18 4212 I personally evaluated the patient and discussed the management with Dr. Marquis. I agree with the History, Examination, Assessment and Plan documented above with any addition or exceptions noted below. Patient doing well. Will complete course of abx for UTI today. Her labs are improved. We are working on placement outside the hospital for this patient. She will be stable for discharge once that is arranged.
[2018-10-18] MEDS: Levothyroxine Sodium 125 MCG TAB PO SCH (06:22)
[2018-10-18 07:38] LABS: #Eosinphils 0.3 thou/uL (0.0-0.7); #Lymphocytes 1.9 thou/uL (1.20-3.40); #Monocytes 0.8 thou/uL (0.11-0.59); #Neutrophils 3.5 thou/uL (1.40-6.50); %Basophils 0.6 % (0.0-1.0); %Eosinophils 5.2 % (0.0-10.0); %Lymphocytes 28.4 % (21.0-51.0); %Monocytes 12.9 % (0.0-10.0); %Neutrophils 52.9 % (42.0-75.0); Hemoglobin 10.7 g/dL (12.0-16.0); Mean Corpuscular HGB CONC 32.4 g/dL (32.0-36.0); Mean Corpuscular Hemoglobin 31.4 pg (27.0-31.0); Mean Corpuscular Volume 96.7 fL (78.0-98.0); Mean Platelet Volume 6.7 fL (7.4-10.4); Platelet Count 227 thou/uL (130-400); Red Blood Cell (RBC) Count 3.41 mill/uL (4.20-5.40); White Blood Cell (WBC) Count 6.6 thou/uL (4.8-10.8)
[2018-10-18] MEDS: glipiZIDE 5 MG TAB PO SCH (07:54)
[2018-10-18] MEDS: Lisinopril 10 MG TAB PO SCH (07:55)
[2018-10-18] MEDS: metFORMIN 500 MG TAB PO SCH (07:56)
[2018-10-18 07:57] VITALS: TEMP 98.3
[2018-10-18] MEDS: Oxybutynin 5 MG TAB PO SCH (07:57)
[2018-10-18 07:58] LABS: Anion Gap 10 mmol/L (10-20); BUN (Urea Nitrogen) 18 mg/dL (9.8-20.1); Calc. Creatinine Clearance 47 mL/min (70-130); Calcium 9.4 mg/dL (7.8-10.44); Carbon Dioxide 28 mmol/L (23-31); Chloride 104 mmol/L (98-107); Estimated GFR-MDRD 43; Glucose 137 mg/dL (83-110); Potassium 4.2 mmol/L (3.5-5.1); Sodium 138 mmol/L (136-145)
[2018-10-18] MEDS: Polyethylene Glycol 3350 17 GM Packet PO SCH (07:58)
[2018-10-18] MEDS: Folic Acid 1 MG TAB PO SCH (07:58)
[2018-10-18] MEDS: Enoxaparin Sodium 40 MG/0.4 ML SYRINGE SC SCH (07:59)
[2018-10-18] MEDS: Pantoprazole 40 MG GRANULES PACKET PO SCH (07:59)
--- NOTE | 2018-10-18 09:27 | PRG ---
DATE OF SERVICE: 10/17/2018 SUBJECTIVE: Ms. Hinson is complaining of difficulty in swallowing both liquids and solids. She eventually is able to get things down, but it takes a while. She denies any aspiration, but again her cognitive issues and recall problems make it hard to assess the accuracy of her previous accounts. She is constipated. Denies any genitourinary symptoms. OBJECTIVE: VITAL SIGNS: With a normal temperature and the blood pressure 113/76, pulse 83, respirations 18 to 20, and O2 saturation 96%. GENERAL: She is awake, alert, oriented. Sitting by the bedside, eating lunch. LUNGS: Symmetric. Good air entry. No crackles or wheezing. HEART: S1, S2 regular rate. ABDOMEN: Soft, not distended. EXTREMITIES: Moves extremities equally. LABORATORY DATA: White cell count 9.2, hemoglobin 11, platelets 245, and creatinine is 1.18. Cryptococcus antigen negative. Acid-fast sputum was insufficient quantity. Respiratory virus PCR was not detected. ASSESSMENT AND DISCUSSION: Rheumatoid arthritis, type 2 diabetes on Amaryl and other immunosuppressive medications, admitted with another episode of fever, this time with cough. She also has abnormal urinalysis. So the main issues here is the possibility of an opportunistic infectious process in the respiratory tract versus urinary tract infection. The E coli isolated fairly susceptible to various oral antimicrobials and she can be discharged on probably quinolones for about 10 days. The possibility of respiratory tract infection will have to continue to be worked up and some assays are pending. Now, she complains of the swallowing issue and we will order a speech therapy evaluation to see if she is having aspiration. If she is having aspiration, then that could explain the abnormalities and chest x-ray as well as the development of fever. If the Speech Therapy evaluation turns out to be normal, then she would require an EGD to evaluate for possible esophageal stricture. Job ID: [id number]
[2018-10-18] MEDS: traMADol HCl 50 MG TAB PO PRN (15:01)
[2018-10-18 15:09] VITALS: BP 129/77
[2018-10-18] MEDS: HYDROcodone/Acetaminophen 10/325 mg Tablet PO PRN (15:37)
--- NOTE | 2018-10-18 21:41 | DIS ---
DATE OF ADMISSION: 10/12/2018 DATE OF DISCHARGE: 10/18/2018 RESIDENT: Bambi Marquis MD. ADMITTING ATTENDING: Dr. Ga Walsh. DISCHARGE ATTENDING: Dr. Alexandre Burgos. CONSULT: Dr. Sandhu on 10/13/2018, Infectious Disease. PROCEDURES: 1. Chest x-ray on 10/13/2018 showed cardiomegaly with chronic lung change and some slight increased parenchymal density in the left base, which appeared to be fairly similar to previous CT study in [place]. 2. Renal ultrasound on 10/13/2018, impression; a. Bilateral renal cortical thinning. b. Mild right-sided hydronephrosis. PRIMARY DIAGNOSES: 1. Uncomplicated urinary tract infection. 2. Physical deconditioning. SECONDARY DIAGNOSES: 1. Left lower lobe bronchiectasis. 2. Concern for congestive heart failure. 3. Diarrhea, resolved. 4. Acute kidney injury, resolved. 5. Chronic normocytic anemia. 6. Hypertension. 7. Hyperlipidemia. 8. Type 2 diabetes mellitus. 9. Hypothyroid. 10. Rheumatoid arthritis. 11. Urinary incontinence. 12. Gastroesophageal reflux disease. 13. Dementia. DISCHARGE MEDICATIONS: 1. Metformin 500 mg p.o. b.i.d. with meals, please take 500 mg p.o. b.i.d. with meals for 2 weeks, then increase to 1000 mg p.o. b.i.d. with meals. 2. Levothyroxine 125 mcg oral every morning. 3. Pantoprazole 40 mg p.o. b.i.d. 4. Melatonin 10 mg p.o. at bedtime. 5. Aricept 10 mg p.o. at bedtime. 6. Gyzefcpfgj-Heah-Krdofvc-Menthol-Eucalyptol 1 application topical at bedtime. 7. Cholecalciferol 5000 units p.o. daily. 8. Atorvastatin 40 mg p.o. at bedtime. 9. Glipizide 10 mg p.o. daily. 10. Acetaminophen 650 mg p.o. q.4 hours as needed for pain. 11. Bisacodyl 2 tablets p.o. at bedtime for constipation. 12. Methotrexate 12.5 mg subcu every week on Thursday. 13. Prednisone 5 mg p.o. daily p.r.n. for joint stiffness. 14. Lisinopril 10 mg p.o. daily. 15. Oxybutynin 5 mg p.o. b.i.d. 16. Etanercept (Enbrel) 50 mg subcutaneous every week. 17. Carvedilol 12.5 mg p.o. b.i.d. 18. MiraLAX 17 g p.o. daily p.r.n. for constipation. 19. Loperamide 2 mg p.o. at bedtime p.r.n. for diarrhea. 20. Folic acid 1 mg p.o. daily. 21. [place] 1 tablet p.o. t.i.d. p.r.n. for pain. 22. Albuterol sulfate 90 mcg four times daily p.r.n. for shortness of breath. 23. Tramadol 50 mg q.8 hours p.r.n. for pain. 24. Zofran 4 mg p.o. q.4 hours as needed for nausea. 25. Tums 500 mg p.o. q.6 hours p.r.n. for indigestion. HISTORY OF PRESENT ILLNESS/HOSPITAL COURSE: This is an 83-year-old female with previous history of multidrug resistant UTI, who was transferred from [facility]. She presented with complaint of 1-week history of weakness , nausea, and decreased p.o. intake. Reported no vomiting. Reported diarrhea, 4 watery episodes daily, nonproductive cough, shortness of breath at rest x4 days. She was in contact with PCP and getting Imodium consistently at home. Daughter noted bowel incontinence. At baseline, the patient has orthopnea. Denies history of CHF. Blood pressure was 91/57 and found to have UTI. Blood pressure improved with 2 L of IV fluids. The patient was feeling much better and tolerated ice chips in our ED. The patient lives at home with daughter next to her. She was taken with night time assistance and home health. She typically ambulates with a walker, though secondary to weakness she is using wheelchair for the last 3 days. In the ED, she received 2 L of fluids, Rocephin, and Zofran. The patient was found to have UTI secondary to E coli sensitive to levaquin. The patient was placed on oral Levaquin for 3 days duration. She never had a white count and was afebrile. An ultrasound was done of kidneys that showed right-sided mild hydronephrosis and bilateral renal cortical thinning. The patient was afebrile. The patient had left lower lobe bronchiectasis. CT done of her chest in [place] showed left lower lobe bronchiectasis and left lower lobe peripheral infiltrates , they are suspected to be chronic fibrotic changes. The patient stated that she had previous lung surgery. Her procalcitonin was trended down. A respiratory viral panel was negative. Patient follows with a service center technician for her chronic lung disease in [place]. Concern for CHF: a chest x-ray showed cardiomegaly, which is also present in 2014. The echo in 03/2018 showed ejection fraction of 55% to 60%, suspect possible diastolic dysfunction. The patient was monitored for signs or symptoms of overload and she did not have any signs or symptoms of volume overload. Her diarrhea resolved before any stool cultures could be done. The patient was continued on home probiotics. The patient had NEENA, which resolved with fluids. Job ID: [id number] MTDD
[2018-10-21 09:19] LABS: QuantiFERON-TB Gold Plus Negative (Negative)
== END 2018-10-18 15:43 | DRG 872 ==
LOC: ERS 18:44 → T4-B 21:26 → OBSVTOIN 21:26
PROVIDERS: ADMIT Family Medicine; ATTEND Family Medicine
DX: A41.51 Sepsis due to Escherichia coli [E. coli] (principal); N39.0 Urinary tract infection, site not specified; N17.9 Acute kidney failure, unspecified; N13.30 Unspecified hydronephrosis; I13.0 Hypertensive heart and chronic kidney disease with heart failure and stage 1 through stage 4 chronic kidney disease, or unspecified chronic kidney disease; D64.9 Anemia, unspecified; E86.0 Dehydration; I25.10 Atherosclerotic heart disease of native coronary artery without angina pectoris; Z16.24 Resistance to multiple antibiotics; J47.9 Bronchiectasis, uncomplicated; F03.90 Unspecified dementia, unspecified severity, without behavioral disturbance, psychotic disturbance, mood disturbance, and anxiety; E11.22 Type 2 diabetes mellitus with diabetic chronic kidney disease; R13.10 Dysphagia, unspecified; I50.9 Heart failure, unspecified; D63.1 Anemia in chronic kidney disease; I12.9 Hypertensive chronic kidney disease with stage 1 through stage 4 chronic kidney disease, or unspecified chronic kidney disease; N18.2 Chronic kidney disease, stage 2 (mild); M06.9 Rheumatoid arthritis, unspecified; R19.7 Diarrhea, unspecified; E78.5 Hyperlipidemia, unspecified; E03.9 Hypothyroidism, unspecified; K21.9 Gastro-esophageal reflux disease without esophagitis; Z95.0 Presence of cardiac pacemaker; Z79.84 Long term (current) use of oral hypoglycemic drugs; Z79.899 Other long term (current) drug therapy
CPT/HCPCS: 36415; 36416; 71045; 76770; 80048; 83036; 83880; 84145; 85025; 86480; 87040; 87070; 87086; 87102; 87116; 87205; 87206; 87385; 87633; 87899; 89220; 93005; 94640; J0696; J1650; J1825; J2001; J2185; J7050; J7512; J7620

== ENCOUNTER 2019-02-26 11:04 | Inpatient (IN) | payer MEDICARE, OTHER ==
[2019-02-26 11:41] LABS: Hemoglobin 10.3 g/dL (12.0-16.0); Mean Corpuscular HGB CONC 32.2 g/dL (32.0-36.0); Mean Corpuscular Hemoglobin 28.4 pg (27.0-31.0); Mean Platelet Volume 6.9 fL (7.4-10.4); Platelet Count 273 thou/uL (130-400); RBC Distribution Width 14.1 % (11.5-14.5); Red Blood Cell (RBC) Count 3.65 mill/uL (4.20-5.40)
[2019-02-26 11:56] LABS: Bilirubin Negative (Negative); Blood, Urine Moderate (Negative); Clarity TURBID (Clear); Glucose, Urine (Dipstick) Negative (Negative); Leukocyte Large (Negative); Nitrite Positive (Negative); Protein, Urine (Dipstick) 100 mg/dL (Neg-Trace)
[2019-02-26 11:59] LABS: ALT (SGPT) 12 U/L (8-55); AST (SGOT) 11 U/L (5-34); Albumin 3.4 g/dL (3.4-4.8); Alkaline Phosphatase 52 U/L (40-150); Anion Gap 19 mmol/L (10-20); BUN (Urea Nitrogen) 29 mg/dL (9.8-20.1); Bilirubin, Total 0.5 mg/dL (0.2-1.2); Calc. Creatinine Clearance 0 mL/min (70-130); Calcium 9.2 mg/dL (7.8-10.44); Carbon Dioxide 25 mmol/L (23-31); Chloride 100 mmol/L (98-107); Estimated GFR-MDRD 26; Globulin 2.8 g/dL (2.4-3.5); Glucose 127 mg/dL (83-110); Potassium 3.8 mmol/L (3.5-5.1); Protein, Total 6.2 g/dL (6.0-8.3); Sodium 140 mmol/L (136-145)
[2019-02-26 11:59] LABS: Bacteria/HPF 2+ HPF (None Seen)
[2019-02-26 12:01] LABS: Pathc Cast-AUWi Flag 50.68 (0-2.49); Yeast-AUWi Flag 63.2 (0-25.0)
[2019-02-26 12:07] LABS: Band 7 % (5-11); Hypochromia SLIGHT = 6-15 cells (100X) (0-5/hpf); Lymphocytes 5 % (21-51); MDiff Complete? YES; Monocytes 3 % (0-10); Neutrophil 83 % (42-75); Platelet Morphology Comment Appears Adequate; Reactive Lymphocytes 1 % (0-10); Vacuoles SLIGHT; White Blood Cell (WBC) Count 20.2 thou/uL (4.8-10.8)
[2019-02-26 12:12] LABS: Hyaline Casts/LPF NONE SEEN LPF (0-3 Hyaline); Other Casts/LPF None Seen LPF (0-3 Hyaline)
[2019-02-26 12:13] LABS: Yeast-All Forms None Seen HPF (None Seen)
[2019-02-26] MEDS ORDERED: Sodium Chloride 0.9% 100 ML ONE (12:30)
[2019-02-26] MEDS ORDERED: Acetaminophen 500 MG TAB ONE (12:30)
[2019-02-26] MEDS ORDERED: cefTRIAXone\\ROCEPHIN 1 GM VIAL ONE (12:30)
--- NOTE | 2019-02-26 12:58 | RAD ---
CHEST RADIOGRAPH: Date: 02/26/19 HISTORY: Fever. Altered mental status. Tachycardia. COMPARISON: 12/25/18. FINDINGS: Stable left-sided transvenous pacemaker. There is atherosclerosis of aorta. Upper normal cardiac [place]h [place]. Lung volumes are diminished, likely due to a poor inspiratory effort. There appears to be a s uture chain in the right infrahilar region, similar to the previous examination. Chronic changes in t he lung parenchyma. No consolidation or mass. No pneumothorax or acute osseous abnormalities. IMPRESSION: No acute cardiopulmonary process. POS: MICHI
--- NOTE | 2019-02-26 14:13 | HP ---
PRIMARY CARE PHYSICIAN: Ml Gordon MD REASON FOR ADMISSION: Sepsis, urinary tract infection. HISTORY OF PRESENT ILLNESS: An 83-year-old female, who has underlying history of multiple medical problems including diabetes type 2, hypertension, hypothyroidism, gastroesophageal reflux disease, and rheumatoid arthritis, who lives at home by herself. She has caregiver during daytime. Her daughter lives close to her house, who monitors her frequently. Yesterday evening, the patient was having chills and rigor. Daughter checked temperature at that time, it was normal. The patient was feeling weak and tired. Later on in the evening time, the patient's temperature was increasing and that is why they gave her Tylenol and after that the patient settled down and she was feeling a little bit better. During nighttime, the patient's daughter noted that she was confused. She was very weak. She remained in bed. She had very poor appetite, and she was feeling more fatigue and tired. This morning, when daughter went to see her, at that time, she found her confused. She was having right rigors and fever, and she was more weak and that is why they decided to bring her to hospital for evaluation. Initially, when she came to emergency room, she was tachycardic, hypotensive. She had sepsis activation done in the emergency room, and subsequently, she received antibiotic therapy with Rocephin and vancomycin as well as she received 30 mL/kg IV fluid. With IV fluid, the patient's blood pressure improved. During this emergency room course, the patient did not have any fever. Her confusion was also clearing up. Her vitals were improving, and that is why we decided to keep this patient in hospital on telemetry floor. This patient has a previous history of urinary tract infection. One time, she also had bacteremia due to E. coli. The patient has underlying history of rheumatoid arthritis, and because of her immunosuppression, she is no longer on any Enbrel therapy. The patient is mostly wheelchair bound. Currently, the patient's daughter is present at bedside in the emergency room, who provided history. The patient denies any sore throat, upper respiratory infection, and lower respiratory symptoms including cough, chest pain. She denies any constipation or diarrhea. She denies any abdominal pain. She denies any lower extremity edema or any rash. She did report back pain during nighttime. REVIEW OF SYSTEMS: CONSTITUTIONAL: Negative for weight loss or gain, ability to conduct usual activities. SKIN: Negative for rash, itching. EYES: Negative for double vision, pain. ENT/MOUTH: Negative for nose bleeding, neck stiffness, pain, tenderness. CARDIOVASCULAR: Negative for palpitations, dyspnea on exertion, orthopnea. RESPIRATORY: Negative for shortness of breath, wheezing, cough, hemoptysis, fever or night sweats. GASTROINTESTINAL: Negative for poor appetite, abdominal pain, heartburn, nausea, vomiting, constipation, or diarrhea. GENITOURINARY: Negative for urgency, frequency, dysuria, nocturia. MUSCULOSKELETAL: Negative for pain, swelling. NEUROLOGIC/PSYCHIATRIC: Negative for anxiety, depression. ALLERGY/IMMUNOLOGIC: Negative for skin rash, bleeding tendency. Please see my HPI for pertinent positives and negatives. All other review of systems reviewed and negative, except as mentioned in HPI. PAST MEDICAL HISTORY: Diabetes type 2; history of sick sinus syndrome, required pacemaker; coronary artery disease; hypothyroidism; dyslipidemia; hypertension; degenerative joint disease; rheumatoid arthritis; chronic low back pain; Alzheimer type of dementia; recurrent fall; gastroesophageal reflux disease. 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 PAST PSYCHIATRIC HISTORY: Alzheimer type of dementia. ALLERGIES: FLUOROQUINOLONE AND PENICILLIN. SOCIAL HISTORY: The patient lives by herself at home. Her daughter lives next door. 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 She ambulates with a wheelchair. She has 2 daughters. She denies any alcohol or other illicit drug abuse. FAMILY HISTORY: No strong family history of premature coronary artery disease, stroke, or cancer. EMERGENCY ROOM COURSE: The patient has received vancomycin, Rocephin, IV fluid, and Tylenol. CURRENT HOME MEDICATIONS: 1. ProAir HFA q.6 hourly p.r.n. 2. Aspirin 81 mg daily. 3. Lipitor 40 mg p.o. at bedtime. 4. Coreg 12.5 mg p.o. b.i.d. 5. Vitamin D3 5000 units p.o. daily. 6. Aricept 10 mg p.o. at bedtime. 7. Folic acid 1 mg p.o. daily. 8. Synthroid 125 mcg p.o. daily. 9. Glucotrol XL 10 mg daily. 10. Lisinopril 10 mg daily. 11. Melatonin 10 mg p.o. at bedtime. 12. Ditropan 5 mg p.o. b.i.d. 13. Protonix 40 mg p.o. b.i.d. 14. Metformin 500 mg p.o. b.i.d. 15. MiraLAX 17 g p.o. daily. 16. Zofran p.r.n. basis. 17. Tramadol p.r.n. basis. 18. [place] p.r.n. basis. PHYSICAL EXAMINATION: VITAL SIGNS: Currently, blood pressure has improved to 103/52, pulse 75, respiratory rate 18, temperature 99.6, saturation 98% on room air, weight 72.5 kg. GENERAL: The patient is currently alert and awake, has weakness. Follows simple commands. No obvious acute distress. HEENT: Head; normocephalic, atraumatic. Eyes; pupils round and reactive to light. Extraocular muscle intact. ENT; oropharynx within normal limits. Moist mucous membranes. No oral lesion. No pharyngeal erythema. No exudate. NECK: Supple. No JVD. No thyromegaly. No carotid bruit. No jugular venous distention. LUNGS: Clear to auscultation without any rhonchi or rales. CARDIAC: S1 and S2 regular. No murmur elicited. No gallop. No rub. ABDOMEN: Soft. Bowel sounds present. Nontender. Nondistended. No organomegaly. No mass. No suprapubic tenderness. No peritoneal sign. BACK: Unremarkable. No CVA tenderness. EXTREMITIES: Upper extremity, passive movement of all joints are normal. Lower extremity, no edema. Good distal pulsation. SKIN: No skin rash. HEMATOLOGICAL: No lymphadenopathy. NEUROLOGIC: Nonfocal examination. She moves all 4 limbs. Speech is normal. IMAGING STUDIES: EKG showing premature ventricular complexes, RBBB, left anterior fascicular block. Chest x-ray based on my review, no acute cardiopulmonary process. SIGNIFICANT LABORATORY DATA: CBC; WBC , hemoglobin 10.3, platelet 273 with bandemia. BMP; sodium 140, potassium 3.8, chloride 100, carbon dioxide 25, anion gap 19, BUN 29, creatinine 1.85, glucose 127, calcium 9.2. LFT; AST 11, ALT 12, alkaline phosphatase 52, albumin 3.4, lactic acid 2.9. Urinalysis suggestive of urinary tract infection. ASSESSMENT AND PLAN: 1. Sepsis with acute organ dysfunction. This patient has sepsis with leukocytosis, low-grade fever, encephalopathy, lactic acidosis. Source of infection is urinary tract infection. Underlying bacteremia cannot be entirely excluded. At this point, the patient is receiving 30 mL/kg IV fluid. The patient will require telemetry admission. She is currently hemodynamically stable. We will closely monitor and follow up on culture result and change antibiotic therapy accordingly. We will continue with broad-spectrum antibiotic therapy with Rocephin and vancomycin. 2. Acute encephalopathy likely due to sepsis. The patient's encephalopathy is already improving. She does not have any focal neurological deficit. 3. Lactic acidosis, likely due to sepsis. We will repeat lactic acid tomorrow again. 4. Chronic kidney disease, stage 4. We will monitor renal function. We will continue with IV fluid and will repeat BMP tomorrow. 5. Dyslipidemia. We will continue Lipitor 40 mg p.o. at bedtime. 6. History of hypertension, but currently low blood pressure and that is why we will hold on Coreg and lisinopril therapy. We will resume those medications when blood pressure permits. 7. Diabetes type 2. We will continue with insulin as per sliding scale protocol. Glucotrol XL will be continued. We will watch for any hypoglycemia. We will hold on metformin therapy for now. 8. Hypothyroidism. We will continue Synthroid 125 mcg p.o. daily. 9. Gastroesophageal reflux disease. We will continue Protonix 40 mg p.o. b.i.d. 10. Alzheimer dementia. We will continue Aricept 10 mg p.o. at bedtime. 11. Chronic normocytic anemia. We will continue folic acid vitamin B12 therapy while in hospital. 12. Coronary artery disease. We will continue aspirin 81 mg p.o. daily. 13. Rheumatoid arthritis. The patient is currently off, on any specific medication including Enbrel and methotrexate. Rather, the patient is on symptomatic treatment. 14. Deep venous thrombosis prophylaxis. Lovenox 40 mg subcu daily. 15. Gastrointestinal prophylaxis. Protonix 40 mg p.o. b.i.d. CODE STATUS: The patient is DNR. This is confirmed with the patient's daughter at bedside. The patient has advance directive, it also says DNR. Plan of care discussed with the patient and her daughter at bedside in the emergency room. Job ID: [id number]
[2019-02-26] MEDS ORDERED: Dextrose 50% Abboject 50 ML SYRINGE SLOW IVP PRN (16:52)
[2019-02-26] MEDS ORDERED: Cepastat Lozenges 1 LOZ PO PRN (16:52)
[2019-02-26] MEDS ORDERED: hydrALAZINE 20 MG/ML VIAL SLOW IVP PRN (16:52)
[2019-02-26] MEDS ORDERED: Ondansetron ODT 4 MG TAB PO PRN (16:52)
[2019-02-26] MEDS ORDERED: Senokot S 8.6-50 MG TAB PO PRN (16:52)
[2019-02-26] MEDS ORDERED: Dextrose 5% in Water 1,000 ML IV PRN (16:52)
[2019-02-26] MEDS ORDERED: Artificial Tears 18 DROP/0.9 ML EA EYE PRN (16:52)
[2019-02-26] MEDS ORDERED: Bisacodyl 10 MG SUPP PR PRN (16:52)
[2019-02-26] MEDS ORDERED: Loperamide HCl 2 MG CAP PO PRN (16:52)
[2019-02-26] MEDS ORDERED: Calcium Carbonate 500 MG ChewTAB PO PRN (16:52)
[2019-02-26] MEDS ORDERED: HumaLOG 300 UNITS/3 ML VIAL SC PRN (16:52)
[2019-02-26] MEDS ORDERED: Diabetic Tussin 200 MG/10 ML UDCUP PO PRN (16:52)
[2019-02-26] MEDS ORDERED: Loratadine 10 MG TAB PO PRN (16:52)
[2019-02-26] MEDS ORDERED: Sodium Chloride 0.65% Nasal 44 ML BOT EA NARE PRN (16:52)
[2019-02-26] MEDS: Sodium Chloride 0.9% 1,000 ML IV SCH (18:07)
[2019-02-26] MEDS: HYDROcodone/Acetaminophen 5/325 mg Tablet PO PRN (20:16)
[2019-02-26] MEDS: Donepezil HCl 10 MG TAB PO SCH (20:17)
[2019-02-26] MEDS: Atorvastatin Calcium 40 MG TAB PO SCH (20:17)
[2019-02-26] MEDS: Oxybutynin 5 MG TAB PO SCH (20:17)
[2019-02-26] MEDS: Ondansetron PF 4 MG/2 ML Vial IVP PRN (21:31)
[2019-02-26] MEDS: Melatonin 3 MG TAB PO PRN (21:31)
[2019-02-27] MEDS: Acetaminophen 325 MG TAB PO PRN (00:11)
[2019-02-27] MEDS: Sodium Chloride 0.9% 1,000 ML IV SCH ×2 (04:27→13:45)
[2019-02-27] MEDS: Levothyroxine Sodium 125 MCG TAB PO SCH (06:16)
[2019-02-27] MEDS: Cyanocobalamin (Vitamin B-12) 1,000 MCG TAB PO SCH (08:30)
[2019-02-27] MEDS: glipiZIDE 5 MG TAB PO SCH (08:30)
[2019-02-27] MEDS: Enoxaparin Sodium 30 MG/0.3 ML SYRINGE SC SCH (08:30)
[2019-02-27] MEDS: Ferrous Sulfate 325 MG TAB PO SCH (08:30)
[2019-02-27] MEDS: Saccharomyces boulardii 250 MG CAP PO SCH (08:30)
[2019-02-27] MEDS: Folic Acid 1 MG TAB PO SCH (08:30)
[2019-02-27] MEDS: Oxybutynin 5 MG TAB PO SCH ×2 (08:31→20:43)
[2019-02-27] MEDS: Aspirin Chewable 81 MG TAB PO SCH (08:31)
[2019-02-27] MEDS: HYDROcodone/Acetaminophen 5/325 mg Tablet PO PRN ×2 (08:33→15:28)
[2019-02-27 09:51] LABS: #Eosinphils 0.1 thou/uL (0.0-0.7); #Lymphocytes 1.2 thou/uL (1.20-3.40); #Monocytes 0.9 thou/uL (0.11-0.59); #Neutrophils 14.6 thou/uL (1.40-6.50); %Basophils 0.2 % (0.0-1.0); %Eosinophils 0.5 % (0.0-10.0); %Lymphocytes 7.3 % (21.0-51.0); %Monocytes 5.3 % (0.0-10.0); %Neutrophils 86.8 % (42.0-75.0); Hemoglobin 10.5 g/dL (12.0-16.0); Mean Corpuscular HGB CONC 31.5 g/dL (32.0-36.0); Mean Corpuscular Volume 88.9 fL (78.0-98.0); Mean Platelet Volume 7.3 fL (7.4-10.4); Platelet Count 219 thou/uL (130-400); RBC Distribution Width 14.4 % (11.5-14.5); Red Blood Cell (RBC) Count 3.74 mill/uL (4.20-5.40); White Blood Cell (WBC) Count 16.8 thou/uL (4.8-10.8)
[2019-02-27 10:09] LABS: Lactic Acid 2.4 mmol/L (0.5-2.2)
[2019-02-27 10:10] LABS: Albumin 3.2 g/dL (3.4-4.8); Anion Gap 15 mmol/L (10-20); BUN (Urea Nitrogen) 25 mg/dL (9.8-20.1); Bilirubin, Total 0.4 mg/dL (0.2-1.2); Calc. Creatinine Clearance 33 mL/min (70-130); Calcium 8.4 mg/dL (7.8-10.44); Carbon Dioxide 23 mmol/L (23-31); Chloride 103 mmol/L (98-107); Estimated GFR-MDRD 31; Globulin 2.8 g/dL (2.4-3.5); Glucose 123 mg/dL (83-110); Potassium 3.8 mmol/L (3.5-5.1); Sodium 137 mmol/L (136-145)
[2019-02-27 10:11] LABS: ALT (SGPT) 10 U/L (8-55); AST (SGOT) 9 U/L (5-34); Alkaline Phosphatase 50 U/L (40-150)
--- NOTE | 2019-02-27 11:36 | PDOC.PN ---
- Subjective Encounter Start Date: 02/27/19 Encounter Start Time: 08:30 -: old records requested/rev this morning pt has high grade fever, she is drowsy but arousable, very weak, daughter bedside - Objective Resuscitation Status - Order Detail: 02/26/19 13:35 Resuscitation Status Routine Resuscitation Status: DNAR: NO Resuscitation Discussed with: discussed with pt and daughter TORRES Reviewed: Yes Vital Signs & Weight: Vital Signs (12 hours) Temp Pulse Resp BP Pulse Ox 02/27/19 08:25 98.3 F 73 20 111/54 L 100 02/27/19 04:00 97.7 F 76 13 96/53 L 99 02/27/19 00:15 102.3 F H 98 14 101/51 L 98 02/27/19 00:05 98 Weight Weight 176 lb 14.4 oz I&O: 02/26/19 02/27/19 02/28/19 06:59 06:59 06:59 Intake Total 1396 Output Total 50 Balance 1346 Result Diagrams: 02/27/19 09:38 02/27/19 09:38 Additional Labs: Accuchecks 02/27/19 02/27/19 02/26/19 11:04 05:29 20:52 POC Glucose 130 H 150 H 200 H 02/26/19 17:32 POC Glucose 195 H EKG Reviewed by me: Yes Phys Exam - Physical Examination Constitutional: NAD HEENT: PERRLA, moist MMs, sclera anicteric Neck: no JVD, supple Respiratory: no wheezing, no rales, no rhonchi Cardiovascular: RRR, no significant murmur, no rub Gastrointestinal: soft, non-tender, no distention, positive bowel sounds Musculoskeletal: no edema, pulses present Neurological: non-focal, normal sensation Lymphatic: no nodes Psychiatric: normal affect Skin: no rash, normal turgor Dx/Plan (1) Bacteremia due to Escherichia coli Code(s): R78.81 - BACTEREMIA Status: Acute (2) Lactic acidosis Code(s): E87.2 - ACIDOSIS Status: Acute (3) Sepsis with acute organ dysfunction Code(s): A41.9 - SEPSIS, UNSPECIFIED ORGANISM; R65.20 - SEVERE SEPSIS WITHOUT SEPTIC SHOCK Status: Acute (4) UTI (urinary tract infection) Status: Acute (5) Anemia, normocytic normochromic Code(s): D64.9 - ANEMIA, UNSPECIFIED Status: Chronic (6) CAD (coronary artery disease) Code(s): I25.10 - ATHSCL HEART DISEASE OF [place] CORONARY ARTERY W/O ANG PCTRS Status: Chronic Qualifiers: Comment: stable (7) CKD (chronic kidney disease) stage 4, GFR 15-29 ml/min Code(s): N18.4 - CHRONIC KIDNEY DISEASE, STAGE 4 (SEVERE) Status: Chronic (8) Dementia Code(s): F03.90 - UNSPECIFIED DEMENTIA WITHOUT BEHAVIORAL DISTURBANCE Status: Chronic Comment: (9) Diabetes type 2, controlled Code(s): E11.9 - TYPE 2 DIABETES MELLITUS WITHOUT COMPLICATIONS Status: Chronic (10) Dyslipidemia Code(s): E78.5 - HYPERLIPIDEMIA, UNSPECIFIED Status: Chronic Comment: on statin (11) Hypothyroidism Code(s): E03.9 - HYPOTHYROIDISM, UNSPECIFIED Status: Chronic Qualifiers: Comment: continue synthroid (12) Lumbar degenerative disc disease Code(s): M51.36 - OTHER INTERVERTEBRAL DISC DEGENERATION, LUMBAR REGION Status : Chronic (13) Obesity (BMI 30.0-34.9) Code(s): E66.9 - OBESITY, UNSPECIFIED Status: Chronic (14) Rheumatoid arthritis Code(s): M06.9 - RHEUMATOID ARTHRITIS, UNSPECIFIED Status: Chronic (15) Acute encephalopathy Code(s): G93.40 - ENCEPHALOPATHY, UNSPECIFIED Status: Acute - Plan cont current plan of care, plan discussed w/ family, 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 Review of Systems - Review of Systems Other: not reliable due to her level of cognitive status - Medications/Allergies Allergies/Adverse Reactions: Allergies Allergy/AdvReac Type Severity Reaction Status Date / Time Penicillins Allergy Severe Anaphylaxis Verified 02/26/19 17:30 Medications: Current Medications Acetaminophen (Tylenol) 650 mg PO Q4H PRN PRN Reason: Headache/Fever/Mild Pain (1-3) Last Admin: 02/27/19 00:11 Dose: 650 mg Hydrocodone Bitart/Acetaminophen ([place] 5/325) 1 tab PO Q4H PRN PRN Reason: Moderate Pain (4-6) Last Admin: 02/27/19 08:33 Dose: 1 tab Albuterol/Ipratropium (Duoneb) 3 ml NEB [id number] PRN PRN Reason: SOB &/or Wheezing Artificial Tears (Tears Naturale) 2 drop EA EYE PRN PRN PRN Reason: Dry Eyes Aspirin (Aspirin Chewable) 81 mg PO DAILY [facility] Last Admin: 02/27/19 08:31 Dose: 81 mg Atorvastatin Calcium (Lipitor) 40 mg PO HS [facility] Last Admin: 02/26/19 20:17 Dose: 40 mg Bisacodyl (Dulcolax) 10 mg SD DAILYPRN PRN PRN Reason: Constipation Calcium Carbonate (Tums) 1,000 mg PO Q4H PRN PRN Reason: Heartburn or Indigestion Cholecalciferol (Vitamin D3) 5,000 units PO DAILY [facility] Last Admin: 02/27/19 08:30 Dose: 5,000 units Cyanocobalamin (Vitamin B-12) 1,000 mcg PO DAILY [facility] Last Admin: 02/27/19 08:30 Dose: 1,000 mcg Dextrose/Water (Dextrose 50%) 25 gm SLOW IVP PRN PRN PRN Reason: Hypoglycemia Donepezil HCl (Aricept) 10 mg PO HS [facility] Last Admin: 02/26/19 20:17 Dose: 10 mg Enoxaparin Sodium (Lovenox) 30 mg SC 0900 [facility] Last Admin: 02/27/19 08:30 Dose: 30 mg Ferrous Sulfate (Feosol) 325 mg PO QAM-WM [facility] Last Admin: 02/27/19 08:30 Dose: 325 mg Folic Acid (Folvite) 1 mg PO DAILY [facility] Last Admin: 02/27/19 08:30 Dose: 1 mg Glipizide (Glucotrol) 5 mg PO DAILY-AC [facility] Last Admin: 02/27/19 08:30 Dose: 5 mg Glucagon (Glucagon) 1 mg IM PRN PRN PRN Reason: Hypoglycemia Guaifenesin (Robitussin Sf) 200 mg PO Q4H PRN PRN Reason: Cough Hydralazine HCl (Apresoline) 10 mg SLOW IVP Q4H PRN PRN Reason: SBP > 180 and HR < 70 Ceftriaxone Sodium 1 gm/ (Sodium Chloride) 100 mls @ 200 mls/hr IVPB Q24HR [facility] Dextrose/Water (D5w) 1,000 mls @ 0 mls/hr IV .Q0M PRN PRN Reason: Hypoglycemia Sodium Chloride (Normal Saline 0.9%) 1,000 mls @ 100 mls/hr IV .Q10H [facility] Last Admin: 02/27/19 04:27 Dose: 1,000 mls Vancomycin HCl 1 gm/ Device 200 mls @ 200 mls/hr IVPB 1300 [facility] Insulin Human Lispro (Humalog) 0 units SC .MODERATE SLIDING SC PRN PRN Reason: Moderate Correctional Scale Insulin Human Lispro (Humalog) 0 units SC .BEDTIME SLIDING SC PRN PRN Reason: Bedtime Correctional Scale Levothyroxine Sodium (Synthroid) 125 mcg PO 0600 [facility] Last Admin: 02/27/19 06:16 Dose: 125 mcg Loperamide HCl (Imodium) 2 mg PO PRN PRN PRN Reason: Diarrhea/Loose Stools Loratadine (Claritin) 10 mg PO DAILYPRN PRN PRN Reason: Sinus Symptoms Melatonin (Melatonin) 10 mg PO HS PRN PRN Reason: Insomnia Last Admin: 02/26/19 21:31 Dose: 10 mg Miscellaneous Medication (Pharmacy To Dose) 1 each IVPB PRN PRN PRN Reason: Pharmacy to dose Ondansetron HCl (Zofran Odt) 4 mg PO Q6H PRN PRN Reason: Nausea/Vomiting Ondansetron HCl (Zofran) 4 mg IVP Q6H PRN PRN Reason: Nausea/Vomiting Last Admin: 02/26/19 21:31 Dose: 4 mg Oxybutynin Chloride (Ditropan) 5 mg PO BID [facility] Last Admin: 02/27/19 08:31 Dose: 5 mg Pantoprazole Sodium (Protonix) 40 mg PO BID [facility] Last Admin: 02/27/19 08:30 Dose: 40 mg Saccharomyces Boulardii (Florastor) 250 mg PO DAILY [facility] Last Admin: 02/27/19 08:30 Dose: 250 mg Senna/Docusate Sodium (Senokot S) 2 tab PO BID PRN PRN Reason: Constipation Sodium Chloride ([place] Nasal [place] 0.65%) 0 ml EA NARE QIDPRN PRN PRN Reason: Nasal Congestion Throat Lozenges (Cepastat Lozenges) 1 pipo PO Q2H PRN PRN Reason: Sore Throat
[2019-02-27] MEDS ORDERED: Vancomycin HCl 1 GM in Premix Bag 1 BAG IVPB SCH (13:00)
[2019-02-27] MEDS: cefTRIAXone\\ROCEPHIN 1 GM in Sodium Chloride 0.9% 100 ML IVPB SCH (13:47)
[2019-02-27] MEDS: Donepezil HCl 10 MG TAB PO SCH (20:43)
[2019-02-27] MEDS: Atorvastatin Calcium 40 MG TAB PO SCH (20:43)
[2019-02-27] MEDS: Melatonin 3 MG TAB PO PRN (20:46)
[2019-02-27] MEDS: Ondansetron PF 4 MG/2 ML Vial IVP PRN (20:46)
[2019-02-28] MEDS: Sodium Chloride 0.9% 1,000 ML IV SCH ×2 (01:05→09:51)
[2019-02-28] MEDS: Acetaminophen 325 MG TAB PO PRN ×2 (03:46→14:21)
[2019-02-28] MEDS: Levothyroxine Sodium 125 MCG TAB PO SCH (05:24)
[2019-02-28 06:52] LABS: #Eosinphils 0.1 thou/uL (0.0-0.7); #Lymphocytes 1.2 thou/uL (1.20-3.40); #Monocytes 0.9 thou/uL (0.11-0.59); %Basophils 0.1 % (0.0-1.0); %Eosinophils 1.1 % (0.0-10.0); %Lymphocytes 13.1 % (21.0-51.0); %Monocytes 9.3 % (0.0-10.0); %Neutrophils 76.4 % (42.0-75.0); Mean Corpuscular HGB CONC 31.8 g/dL (32.0-36.0); Mean Corpuscular Hemoglobin 28.4 pg (27.0-31.0); Mean Corpuscular Volume 89.2 fL (78.0-98.0); Platelet Count 179 thou/uL (130-400); RBC Distribution Width 14.2 % (11.5-14.5); Red Blood Cell (RBC) Count 3.18 mill/uL (4.20-5.40); White Blood Cell (WBC) Count 9.2 thou/uL (4.8-10.8)
[2019-02-28 07:06] LABS: Anion Gap 11 mmol/L (10-20); BUN (Urea Nitrogen) 18 mg/dL (9.8-20.1); Calc. Creatinine Clearance 43 mL/min (70-130); Calcium 8.3 mg/dL (7.8-10.44); Carbon Dioxide 22 mmol/L (23-31); Chloride 105 mmol/L (98-107); Estimated GFR-MDRD 41; Glucose 145 mg/dL (83-110); Potassium 3.8 mmol/L (3.5-5.1); Sodium 134 mmol/L (136-145)
[2019-02-28] MEDS: glipiZIDE 5 MG TAB PO SCH (08:26)
[2019-02-28] MEDS: Aspirin Chewable 81 MG TAB PO SCH (08:26)
[2019-02-28] MEDS: Saccharomyces boulardii 250 MG CAP PO SCH (08:26)
[2019-02-28] MEDS: Cyanocobalamin (Vitamin B-12) 1,000 MCG TAB PO SCH (08:26)
[2019-02-28] MEDS: Oxybutynin 5 MG TAB PO SCH ×2 (08:26→21:18)
[2019-02-28] MEDS: Folic Acid 1 MG TAB PO SCH (08:26)
[2019-02-28] MEDS: Enoxaparin Sodium 30 MG/0.3 ML SYRINGE SC SCH (08:27)
[2019-02-28] MEDS: Ferrous Sulfate 325 MG TAB PO SCH (08:28)
--- NOTE | 2019-02-28 10:51 | PDOC.PN ---
- Subjective Encounter Start Date: 02/28/19 Encounter Start Time: 08:00 Patient seen and examined. No new complaints. No overnight events today she has low grade fever, but overall subjectively feels better - Objective Resuscitation Status - Order Detail: 02/26/19 13:35 Resuscitation Status Routine Resuscitation Status: DNAR: NO Resuscitation Discussed with: discussed with pt and daughter TORRES Reviewed: Yes Vital Signs & Weight: Vital Signs (12 hours) Temp Pulse Resp BP Pulse Ox 02/28/19 07:54 98.6 F 70 18 151/71 H 95 02/28/19 03:22 100.8 F H 88 22 H 132/68 93 L 02/27/19 23:53 98.9 F Weight Weight 180 lb 12.8 oz I&O: 02/27/19 02/28/19 03/01/19 06:59 06:59 06:59 Intake Total 1396 3032 Output Total 50 1575 Balance 1346 1457 Result Diagrams: 02/28/19 06:38 02/28/19 06:38 Additional Labs: Accuchecks 02/28/19 02/27/19 02/27/19 05:27 21:12 16:21 POC Glucose 160 H 189 H 168 H 02/27/19 11:04 POC Glucose 130 H EKG Reviewed by me: Yes Phys Exam - Physical Examination Constitutional: NAD HEENT: PERRLA, moist MMs, sclera anicteric Neck: no JVD, supple Respiratory: no wheezing, no rales, no rhonchi Cardiovascular: RRR, no significant murmur, no rub Gastrointestinal: soft, non-tender, no distention, positive bowel sounds Musculoskeletal: no edema, pulses present Neurological: non-focal, normal sensation Lymphatic: no nodes Psychiatric: normal affect, A&O x 3 Skin: no rash, normal turgor Dx/Plan (1) Bacteremia due to Escherichia coli Code(s): R78.81 - BACTEREMIA Status: Acute (2) Lactic acidosis Code(s): E87.2 - ACIDOSIS Status: Acute (3) Sepsis with acute organ dysfunction Code(s): A41.9 - SEPSIS, UNSPECIFIED ORGANISM; R65.20 - SEVERE SEPSIS WITHOUT SEPTIC SHOCK Status: Acute (4) UTI (urinary tract infection) Status: Acute (5) Anemia, normocytic normochromic Code(s): D64.9 - ANEMIA, UNSPECIFIED Status: Chronic (6) CAD (coronary artery disease) Code(s): I25.10 - ATHSCL HEART DISEASE OF [place] CORONARY ARTERY W/O ANG PCTRS Status: Chronic Qualifiers: Comment: stable (7) CKD (chronic kidney disease) stage 4, GFR 15-29 ml/min Code(s): N18.4 - CHRONIC KIDNEY DISEASE, STAGE 4 (SEVERE) Status: Chronic (8) Dementia Code(s): F03.90 - UNSPECIFIED DEMENTIA WITHOUT BEHAVIORAL DISTURBANCE Status: Chronic Comment: (9) Diabetes type 2, controlled Code(s): E11.9 - TYPE 2 DIABETES MELLITUS WITHOUT COMPLICATIONS Status: Chronic (10) Dyslipidemia Code(s): E78.5 - HYPERLIPIDEMIA, UNSPECIFIED Status: Chronic Comment: on statin (11) Hypothyroidism Code(s): E03.9 - HYPOTHYROIDISM, UNSPECIFIED Status: Chronic Qualifiers: Comment: continue synthroid (12) Lumbar degenerative disc disease Code(s): M51.36 - OTHER INTERVERTEBRAL DISC DEGENERATION, LUMBAR REGION Status : Chronic (13) Obesity (BMI 30.0-34.9) Code(s): E66.9 - OBESITY, UNSPECIFIED Status: Chronic (14) Rheumatoid arthritis Code(s): M06.9 - RHEUMATOID ARTHRITIS, UNSPECIFIED Status: Chronic (15) Acute encephalopathy Code(s): G93.40 - ENCEPHALOPATHY, UNSPECIFIED Status: Acute - Plan cont current plan of care, 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 Review of Systems - Review of Systems ENT: negative: Ear Pain, Ear Discharge, Nose Pain, Nose Discharge, Nose Congestion, Mouth Pain, Mouth Swelling, Throat Pain, Throat Swelling, Other Respiratory: negative: Cough, Dry, Shortness of Breath, Hemoptysis, SOB with Excertion, Pleuritic Pain, Sputum, Wheezing Cardiovascular: negative: chest pain, palpitations, orthopnea, paroxysmal nocturnal dyspnea, edema, light headedness, other Gastrointestinal: negative: Nausea, Vomiting, Abdominal Pain, Diarrhea, Constipation, Melena, Hematochezia, Other Genitourinary: negative: Dysuria, Frequency, Incontinence, Hematuria, Retention , Other Musculoskeletal: negative: Neck Pain, Shoulder Pain, Arm Pain, Back Pain, Hand Pain, Leg Pain, Foot Pain, Other Skin: negative: Rash, Lesions, Sunday, Bruising, Other - Medications/Allergies Allergies/Adverse Reactions: Allergies Allergy/AdvReac Type Severity Reaction Status Date / Time Penicillins Allergy Severe Anaphylaxis Verified 02/26/19 17:30 Medications: Current Medications Acetaminophen (Tylenol) 650 mg PO Q4H PRN PRN Reason: Headache/Fever/Mild Pain (1-3) Last Admin: 02/28/19 03:46 Dose: 650 mg Hydrocodone Bitart/Acetaminophen ([place] 5/325) 1 tab PO Q4H PRN PRN Reason: Moderate Pain (4-6) Last Admin: 02/27/19 15:28 Dose: 1 tab Albuterol/Ipratropium (Duoneb) 3 ml NEB [id number] PRN PRN Reason: SOB &/or Wheezing Artificial Tears (Tears Naturale) 2 drop EA EYE PRN PRN PRN Reason: Dry Eyes Aspirin (Aspirin Chewable) 81 mg PO DAILY [facility] Last Admin: 02/28/19 08:26 Dose: 81 mg Atorvastatin Calcium (Lipitor) 40 mg PO HS [facility] Last Admin: 02/27/19 20:43 Dose: 40 mg Bisacodyl (Dulcolax) 10 mg SC DAILYPRN PRN PRN Reason: Constipation Calcium Carbonate (Tums) 1,000 mg PO Q4H PRN PRN Reason: Heartburn or Indigestion Cholecalciferol (Vitamin D3) 5,000 units PO DAILY [facility] Last Admin: 02/28/19 08:26 Dose: 5,000 units Cyanocobalamin (Vitamin B-12) 1,000 mcg PO DAILY [facility] Last Admin: 02/28/19 08:26 Dose: 1,000 mcg Dextrose/Water (Dextrose 50%) 25 gm SLOW IVP PRN PRN PRN Reason: Hypoglycemia Donepezil HCl (Aricept) 10 mg PO HS [facility] Last Admin: 02/27/19 20:43 Dose: 10 mg Enoxaparin Sodium (Lovenox) 30 mg SC 0900 [facility] Last Admin: 02/28/19 08:27 Dose: 30 mg Ferrous Sulfate (Feosol) 325 mg PO QA-[facility] Last Admin: 02/28/19 08:28 Dose: 325 mg Folic Acid (Folvite) 1 mg PO DAILY [facility] Last Admin: 02/28/19 08:26 Dose: 1 mg Glipizide (Glucotrol) 5 mg PO DAILY-AC [facility] Last Admin: 02/28/19 08:26 Dose: 5 mg Glucagon (Glucagon) 1 mg IM PRN PRN PRN Reason: Hypoglycemia Guaifenesin (Robitussin Sf) 200 mg PO Q4H PRN PRN Reason: Cough Hydralazine HCl (Apresoline) 10 mg SLOW IVP Q4H PRN PRN Reason: SBP > 180 and HR < 70 Ceftriaxone Sodium 1 gm/ (Sodium Chloride) 100 mls @ 200 mls/hr IVPB Q24HR [facility] Last Admin: 02/27/19 13:47 Dose: 100 mls Dextrose/Water (D5w) 1,000 mls @ 0 mls/hr IV .Q0M PRN PRN Reason: Hypoglycemia Levofloxacin 500 mg/ Device 100 mls @ 100 mls/hr IVPB Q24HR [facility] Last Admin: 02/27/19 12:22 Dose: 100 mls Insulin Human Lispro (Humalog) 0 units SC .MODERATE SLIDING SC PRN PRN Reason: Moderate Correctional Scale Insulin Human Lispro (Humalog) 0 units SC .BEDTIME SLIDING SC PRN PRN Reason: Bedtime Correctional Scale Levothyroxine Sodium (Synthroid) 125 mcg PO 0600 [facility] Last Admin: 02/28/19 05:24 Dose: 125 mcg Loperamide HCl (Imodium) 2 mg PO PRN PRN PRN Reason: Diarrhea/Loose Stools Loratadine (Claritin) 10 mg PO DAILYPRN PRN PRN Reason: Sinus Symptoms Melatonin (Melatonin) 10 mg PO HS PRN PRN Reason: Insomnia Last Admin: 02/27/19 20:46 Dose: 10 mg Ondansetron HCl (Zofran Odt) 4 mg PO Q6H PRN PRN Reason: Nausea/Vomiting Ondansetron HCl (Zofran) 4 mg IVP Q6H PRN PRN Reason: Nausea/Vomiting Last Admin: 02/27/19 20:46 Dose: 4 mg Oxybutynin Chloride (Ditropan) 5 mg PO BID [facility] Last Admin: 02/28/19 08:26 Dose: 5 mg Pantoprazole Sodium (Protonix) 40 mg PO BID [facility] Last Admin: 02/28/19 08:26 Dose: 40 mg Saccharomyces Boulardii (Florastor) 250 mg PO DAILY [facility] Last Admin: 02/28/19 08:26 Dose: 250 mg Senna/Docusate Sodium (Senokot S) 2 tab PO BID PRN PRN Reason: Constipation Sodium Chloride ([place] Nasal [place] 0.65%) 0 ml EA NARE QIDPRN PRN PRN Reason: Nasal Congestion Throat Lozenges (Cepastat Lozenges) 1 pipo PO Q2H PRN PRN Reason: Sore Throat
[2019-02-28] MEDS: cefTRIAXone\\ROCEPHIN 1 GM in Sodium Chloride 0.9% 100 ML IVPB SCH (13:06)
[2019-02-28 13:19] VITALS: BMI 34.1
--- NOTE | 2019-02-28 16:37 | PQF ---
TAYLOR GARSIA SALIM NOORJIBHAI MD [id number] [facility]-292 [id number] CLINICAL DOCUMENTATION IMPROVEMENT CLARIFICATION FORM: ICD-10 Updated PLEASE DO AN ADDENDUM TO THE PROGRESS NOTE WITH ANY DOCUMENTATION UPDATES OR ADDITIONS AND CARRY THROUGH TO DC SUMMARY. THANK YOU. DATE: 02/28/2019 ATTN:SR. Vincent DANIELSON Please exercise your independent, professional judgment in responding to the clarification form. Clinical indicators are provided on the bottom of this form for your review. Please check appropriate box(s): Acute Encephalopathy: Etiology: [ ] Hypertensive [ ] Metabolic [ ] Toxic [ x ] Septic [ ] Unspecified [ ] in the setting of underlying dementia [ ] Other (please specify) [ ] Other diagnosis [ ] Unable to determine In addition, please specify: Present on Admission (POA): [ x ] Yes [ ] No [ ] Unable to determine For continuity of documentation, please document condition throughout progress notes and discharge summary. Thank You. CLINICAL INDICATORS - SIGNS / SYMPTOMS / LABS 02/26 ED PHYSICIAN DX: SEPSIS, UTI, LEUKOCYTOSIS 02/26 H & P (JAGJIT) ASSESSMENT AND PLAN: 2) ACUTE ENCEPHALOPATHY LIKELY DUE TO SEPSIS 02/27 PN (JAGJIT) DX/PLAN 15) ACUTE ENCEPHALOPATHY 02/28 PN (JAGJIT) DX/PLAN 15) ACUTE ENCEPHALOPATHY 02/26 LACTIC ACID 2.9 2.0 2.4 RISK: DX SEPSIS W ACUTE ORGAN DYSFUNCTION (H & P ) JAGJIT DX OF UTI (H & P ) JAGJIT ADVANCED AGE (83) TREATMENTS: LEVAQUIN IV (02/27-PRESENT) ROCEPHIN IV (02/27-PRESENT) THANK YOU ! JORGE (This form is maintained as a part of the permanent medical record) 2014 [employer], [employer]. All Rights Reserved [email or web address] [phone] [email or web address]
[2019-02-28] MEDS: PROVENTIL INHALER 6.7 G (200 INHALATIONS) INH SCH ×2 (18:21→18:23)
[2019-02-28] MEDS: Bisacodyl 5 MG TAB PO SCH (21:18)
[2019-02-28] MEDS: Atorvastatin Calcium 10 MG TAB PO SCH (21:18)
[2019-02-28] MEDS: Donepezil HCl 10 MG TAB PO SCH (21:18)
[2019-02-28] MEDS: Melatonin 3 MG TAB PO PRN (23:03)
[2019-03-01] MEDS: Levothyroxine Sodium 125 MCG TAB PO SCH (05:32)
[2019-03-01] MEDS: HumaLOG 300 UNITS/3 ML VIAL SC PRN ×2 (05:32→11:32)
[2019-03-01] MEDS: PROVENTIL INHALER 6.7 G (200 INHALATIONS) INH SCH ×4 (07:10→18:49)
[2019-03-01] MEDS: Saccharomyces boulardii 250 MG CAP PO SCH (07:44)
[2019-03-01] MEDS: glipiZIDE 5 MG TAB PO SCH (07:44)
[2019-03-01] MEDS: Aspirin Chewable 81 MG TAB PO SCH (07:45)
[2019-03-01] MEDS: Cyanocobalamin (Vitamin B-12) 1,000 MCG TAB PO SCH (07:45)
[2019-03-01] MEDS: Oxybutynin 5 MG TAB PO SCH ×2 (07:45→20:17)
[2019-03-01] MEDS: Ferrous Sulfate 325 MG TAB PO SCH (07:46)
[2019-03-01] MEDS: Folic Acid 1 MG TAB PO SCH (07:46)
[2019-03-01] MEDS: Enoxaparin Sodium 30 MG/0.3 ML SYRINGE SC SCH (07:47)
[2019-03-01] MEDS ORDERED: Folic Acid 1 MG TAB PO SCH (09:00)
[2019-03-01] MEDS ORDERED: Cyanocobalamin (Vitamin B-12) 1,000 MCG TAB PO SCH (09:00)
[2019-03-01] MEDS: cefTRIAXone\\ROCEPHIN 1 GM in Sodium Chloride 0.9% 100 ML IVPB SCH (11:38)
--- NOTE | 2019-03-01 11:56 | PDOC.PN ---
- Subjective Encounter Start Date: 03/01/19 Encounter Start Time: 08:15 Patient seen and examined. No new complaints. No overnight events - Objective Resuscitation Status - Order Detail: 02/26/19 13:35 Resuscitation Status Routine Resuscitation Status: DNAR: NO Resuscitation Discussed with: discussed with pt and daughter TORRES Reviewed: Yes Vital Signs & Weight: Vital Signs (12 hours) Temp Pulse Resp BP BP Pulse Ox 03/01/19 11:43 98.4 F 71 20 145/75 H 95 03/01/19 10:16 74 16 03/01/19 08:00 92 L 03/01/19 07:35 98.8 F 74 18 170/89 H 92 L 03/01/19 07:10 75 16 94 L 03/01/19 04:00 99.6 F 75 20 164/78 H 94 L 03/01/19 00:00 98.4 F 72 20 160/80 H 93 L Weight Admit Weight 174 lb 6.4 oz Weight 180 lb 12.8 oz I&O: 02/28/19 03/01/19 03/02/19 06:59 06:59 06:59 Intake Total 3032 730 Output Total 1575 1900 Balance 1457 -1170 Result Diagrams: 02/28/19 06:38 02/28/19 06:38 Additional Labs: Accuchecks 03/01/19 02/28/19 02/28/19 04:33 19:54 16:54 POC Glucose 161 H 186 H 114 H Phys Exam - Physical Examination Constitutional: NAD HEENT: PERRLA, moist MMs, sclera anicteric Neck: no JVD, supple Respiratory: no wheezing, no rales, no rhonchi Cardiovascular: RRR, no significant murmur, no rub Gastrointestinal: soft, non-tender, no distention, positive bowel sounds Musculoskeletal: no edema, pulses present Neurological: non-focal, normal sensation, moves all 4 limbs Lymphatic: no nodes Psychiatric: normal affect, A&O x 3 Skin: no rash, normal turgor Dx/Plan (1) Bacteremia due to Escherichia coli Code(s): R78.81 - BACTEREMIA Status: Acute (2) Lactic acidosis Code(s): E87.2 - ACIDOSIS Status: Acute (3) Sepsis with acute organ dysfunction Code(s): A41.9 - SEPSIS, UNSPECIFIED ORGANISM; R65.20 - SEVERE SEPSIS WITHOUT SEPTIC SHOCK Status: Acute (4) UTI (urinary tract infection) Status: Acute (5) Anemia, normocytic normochromic Code(s): D64.9 - ANEMIA, UNSPECIFIED Status: Chronic (6) CAD (coronary artery disease) Code(s): I25.10 - ATHSCL HEART DISEASE OF [place] CORONARY ARTERY W/O ANG PCTRS Status: Chronic Qualifiers: Comment: stable (7) CKD (chronic kidney disease) stage 4, GFR 15-29 ml/min Code(s): N18.4 - CHRONIC KIDNEY DISEASE, STAGE 4 (SEVERE) Status: Chronic (8) Dementia Code(s): F03.90 - UNSPECIFIED DEMENTIA WITHOUT BEHAVIORAL DISTURBANCE Status: Chronic Comment: (9) Diabetes type 2, controlled Code(s): E11.9 - TYPE 2 DIABETES MELLITUS WITHOUT COMPLICATIONS Status: Chronic (10) Dyslipidemia Code(s): E78.5 - HYPERLIPIDEMIA, UNSPECIFIED Status: Chronic Comment: on statin (11) Hypothyroidism Code(s): E03.9 - HYPOTHYROIDISM, UNSPECIFIED Status: Chronic Qualifiers: Comment: continue synthroid (12) Lumbar degenerative disc disease Code(s): M51.36 - OTHER INTERVERTEBRAL DISC DEGENERATION, LUMBAR REGION Status : Chronic (13) Obesity (BMI 30.0-34.9) Code(s): E66.9 - OBESITY, UNSPECIFIED Status: Chronic (14) Rheumatoid arthritis Code(s): M06.9 - RHEUMATOID ARTHRITIS, UNSPECIFIED Status: Chronic (15) Acute encephalopathy Code(s): G93.40 - ENCEPHALOPATHY, UNSPECIFIED Status: Acute - Plan cont current plan of care, 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 Review of Systems - Review of Systems ENT: negative: Ear Pain, Ear Discharge, Nose Pain, Nose Discharge, Nose Congestion, Mouth Pain, Mouth Swelling, Throat Pain, Throat Swelling, Other Respiratory: negative: Cough, Dry, Shortness of Breath, Hemoptysis, SOB with Excertion, Pleuritic Pain, Sputum, Wheezing Cardiovascular: negative: chest pain, palpitations, orthopnea, paroxysmal nocturnal dyspnea, edema, light headedness, other Gastrointestinal: negative: Nausea, Vomiting, Abdominal Pain, Diarrhea, Constipation, Melena, Hematochezia, Other Genitourinary: negative: Dysuria, Frequency, Incontinence, Hematuria, Retention , Other Musculoskeletal: negative: Neck Pain, Shoulder Pain, Arm Pain, Back Pain, Hand Pain, Leg Pain, Foot Pain, Other - Medications/Allergies Allergies/Adverse Reactions: Allergies Allergy/AdvReac Type Severity Reaction Status Date / Time Penicillins Allergy Severe Anaphylaxis Verified 02/26/19 17:30 Medications: Current Medications Acetaminophen (Tylenol) 650 mg PO Q4H PRN PRN Reason: Headache/Fever/Mild Pain (1-3) Last Admin: 02/28/19 14:21 Dose: 650 mg Hydrocodone Bitart/Acetaminophen ([place] 5/325) 1 tab PO Q4H PRN PRN Reason: Moderate Pain (4-6) Last Admin: 02/27/19 15:28 Dose: 1 tab Albuterol Sulfate (Proventil Hfa) 1 puff INH QID [facility] Last Admin: 03/01/19 10:16 Dose: 1 puff Albuterol/Ipratropium (Duoneb) 3 ml NEB Q6H PRN PRN Reason: SOB &/or Wheezing Artificial Tears (Tears Naturale) 2 drop EA EYE PRN PRN PRN Reason: Dry Eyes Aspirin (Aspirin Chewable) 81 mg PO DAILY [facility] Last Admin: 03/01/19 07:45 Dose: 81 mg Atorvastatin Calcium (Lipitor) 40 mg PO [facility] Last Admin: 02/28/19 21:18 Dose: 40 mg Bisacodyl (Dulcolax) 10 mg [place] DAILYPRN PRN PRN Reason: Constipation Bisacodyl (Dulcolax) 10 mg PO [facility] Last Admin: 02/28/19 21:18 Dose: 10 mg Calcium Carbonate (Tums) 1,000 mg PO Q4H PRN PRN Reason: Heartburn or Indigestion Cholecalciferol (Vitamin D3) 5,000 units PO DAILY [facility] Last Admin: 03/01/19 07:46 Dose: 5,000 units Cyanocobalamin (Vitamin B-12) 1,000 mcg PO DAILY [facility] Last Admin: 03/01/19 07:45 Dose: 1,000 mcg Dextrose/Water (Dextrose 50%) 25 gm SLOW IVP PRN PRN PRN Reason: Hypoglycemia Donepezil HCl (Aricept) 10 mg PO [facility] Last Admin: 02/28/19 21:18 Dose: 10 mg Enoxaparin Sodium (Lovenox) 30 mg SC 0900 [facility] Last Admin: 03/01/19 07:47 Dose: 30 mg Ferrous Sulfate (Feosol) 325 mg PO QAM-[facility] Last Admin: 03/01/19 07:46 Dose: 325 mg Folic Acid (Folvite) 1 mg PO DAILY [facility] Last Admin: 03/01/19 07:46 Dose: 1 mg Glipizide (Glucotrol) 5 mg PO DAILY-[facility] Last Admin: 03/01/19 07:44 Dose: 5 mg Glucagon (Glucagon) 1 mg IM PRN PRN PRN Reason: Hypoglycemia Guaifenesin (Robitussin Sf) 200 mg PO Q4H PRN PRN Reason: Cough Hydralazine HCl (Apresoline) 10 mg SLOW IVP Q4H PRN PRN Reason: SBP > 180 and HR < 70 Ceftriaxone Sodium 1 gm/ (Sodium Chloride) 100 mls @ 200 mls/hr IVPB Q24HR [facility] Last Admin: 03/01/19 11:38 Dose: 100 mls Dextrose/Water (D5w) 1,000 mls @ 0 mls/hr IV .Q0M PRN PRN Reason: Hypoglycemia Levofloxacin 500 mg/ Device 100 mls @ 100 mls/hr IVPB Q24HR [facility] Last Admin: 03/01/19 11:23 Dose: 100 mls Insulin Human Lispro (Humalog) 0 units SC .MODERATE SLIDING SC PRN PRN Reason: Moderate Correctional Scale Last Admin: 03/01/19 11:32 Dose: 4 unit Insulin Human Lispro (Humalog) 0 units SC .BEDTIME SLIDING SC PRN PRN Reason: Bedtime Correctional Scale Levothyroxine Sodium (Synthroid) 125 mcg PO 0600 [facility] Last Admin: 03/01/19 05:32 Dose: 125 mcg Loperamide HCl (Imodium) 2 mg PO PRN PRN PRN Reason: Diarrhea/Loose Stools Loratadine (Claritin) 10 mg PO DAILYPRN PRN PRN Reason: Sinus Symptoms Melatonin (Melatonin) 10 mg PO HS PRN PRN Reason: Insomnia Last Admin: 02/28/19 23:03 Dose: 10 mg Ondansetron HCl (Zofran Odt) 4 mg PO Q6H PRN PRN Reason: Nausea/Vomiting Ondansetron HCl (Zofran) 4 mg IVP Q6H PRN PRN Reason: Nausea/Vomiting Last Admin: 02/27/19 20:46 Dose: 4 mg Oxybutynin Chloride (Ditropan) 5 mg PO BID [facility] Last Admin: 03/01/19 07:45 Dose: 5 mg Pantoprazole Sodium (Protonix) 40 mg PO BID [facility] Last Admin: 03/01/19 07:46 Dose: 40 mg Saccharomyces Boulardii (Florastor) 250 mg PO DAILY [facility] Last Admin: 03/01/19 07:44 Dose: 250 mg Senna/Docusate Sodium (Senokot S) 2 tab PO BID PRN PRN Reason: Constipation Sodium Chloride ([place] Nasal [place] 0.65%) 0 ml EA NARE QIDPRN PRN PRN Reason: Nasal Congestion Throat Lozenges (Cepastat Lozenges) 1 pipo PO Q2H PRN PRN Reason: Sore Throat
[2019-03-01] MEDS: HYDROcodone/Acetaminophen 5/325 mg Tablet PO PRN ×2 (16:08→22:16)
[2019-03-01] MEDS: Atorvastatin Calcium 10 MG TAB PO SCH (20:16)
[2019-03-01] MEDS: Bisacodyl 5 MG TAB PO SCH (20:16)
[2019-03-01] MEDS: Donepezil HCl 10 MG TAB PO SCH (20:17)
[2019-03-02] MEDS: Levothyroxine Sodium 125 MCG TAB PO SCH (05:47)
[2019-03-02] MEDS: Saccharomyces boulardii 250 MG CAP PO SCH (08:03)
[2019-03-02] MEDS: Folic Acid 1 MG TAB PO SCH (08:04)
[2019-03-02] MEDS: glipiZIDE 5 MG TAB PO SCH (08:04)
[2019-03-02] MEDS: Oxybutynin 5 MG TAB PO SCH (08:04)
[2019-03-02] MEDS: Aspirin Chewable 81 MG TAB PO SCH (08:06)
[2019-03-02] MEDS: PROVENTIL INHALER 6.7 G (200 INHALATIONS) INH SCH ×3 (08:06→13:47)
[2019-03-02] MEDS: Ferrous Sulfate 325 MG TAB PO SCH (08:06)
[2019-03-02] MEDS: Cyanocobalamin (Vitamin B-12) 1,000 MCG TAB PO SCH (08:06)
[2019-03-02] MEDS: Enoxaparin Sodium 30 MG/0.3 ML SYRINGE SC SCH (08:07)
--- NOTE | 2019-03-02 11:29 | PDOC.PN ---
- Subjective Encounter Start Date: 03/02/19 Encounter Start Time: 10:00 Patient seen and examined. No new complaints. No overnight events - Objective Resuscitation Status - Order Detail: 02/26/19 13:35 Resuscitation Status Routine Resuscitation Status: DNAR: NO Resuscitation Discussed with: discussed with pt and daughter TORRES Reviewed: Yes Vital Signs & Weight: Vital Signs (12 hours) Temp Pulse Resp BP Pulse Ox 03/02/19 08:00 95 03/02/19 07:21 98.2 F 76 20 159/82 H 95 03/02/19 04:00 98.7 F 69 20 152/81 H 94 L 03/02/19 00:00 98.7 F 71 20 126/75 93 L Weight Admit Weight 174 lb 6.4 oz Weight 180 lb 12.8 oz I&O: 03/01/19 03/02/19 03/03/19 06:59 06:59 06:59 Intake Total 730 480 Output Total 1900 1250 Balance -1170 -770 Result Diagrams: 02/28/19 06:38 02/28/19 06:38 Additional Labs: Accuchecks 03/02/19 03/01/19 03/01/19 04:21 19:32 15:55 POC Glucose 129 H 95 139 H 03/01/19 11:16 POC Glucose 209 H Phys Exam - Physical Examination Constitutional: NAD HEENT: PERRLA, moist MMs, sclera anicteric Neck: no JVD, supple Respiratory: no wheezing, no rales, no rhonchi Cardiovascular: RRR, no significant murmur, no rub Gastrointestinal: soft, non-tender, no distention, positive bowel sounds Musculoskeletal: no edema, pulses present Neurological: non-focal, normal sensation Lymphatic: no nodes Psychiatric: normal affect, A&O x 3 Skin: no rash, normal turgor Dx/Plan (1) Bacteremia due to Escherichia coli Code(s): R78.81 - BACTEREMIA Status: Acute (2) Lactic acidosis Code(s): E87.2 - ACIDOSIS Status: Acute (3) Sepsis with acute organ dysfunction Code(s): A41.9 - SEPSIS, UNSPECIFIED ORGANISM; R65.20 - SEVERE SEPSIS WITHOUT SEPTIC SHOCK Status: Acute (4) UTI (urinary tract infection) Status: Acute (5) Anemia, normocytic normochromic Code(s): D64.9 - ANEMIA, UNSPECIFIED Status: Chronic (6) CAD (coronary artery disease) Code(s): I25.10 - ATHSCL HEART DISEASE OF [place] CORONARY ARTERY W/O ANG PCTRS Status: Chronic Qualifiers: Comment: stable (7) CKD (chronic kidney disease) stage 4, GFR 15-29 ml/min Code(s): N18.4 - CHRONIC KIDNEY DISEASE, STAGE 4 (SEVERE) Status: Chronic (8) Dementia Code(s): F03.90 - UNSPECIFIED DEMENTIA WITHOUT BEHAVIORAL DISTURBANCE Status: Chronic Comment: (9) Diabetes type 2, controlled Code(s): E11.9 - TYPE 2 DIABETES MELLITUS WITHOUT COMPLICATIONS Status: Chronic (10) Dyslipidemia Code(s): E78.5 - HYPERLIPIDEMIA, UNSPECIFIED Status: Chronic Comment: on statin (11) Hypothyroidism Code(s): E03.9 - HYPOTHYROIDISM, UNSPECIFIED Status: Chronic Qualifiers: Comment: continue synthroid (12) Lumbar degenerative disc disease Code(s): M51.36 - OTHER INTERVERTEBRAL DISC DEGENERATION, LUMBAR REGION Status : Chronic (13) Obesity (BMI 30.0-34.9) Code(s): E66.9 - OBESITY, UNSPECIFIED Status: Chronic (14) Rheumatoid arthritis Code(s): M06.9 - RHEUMATOID ARTHRITIS, UNSPECIFIED Status: Chronic (15) Acute encephalopathy Code(s): G93.40 - ENCEPHALOPATHY, UNSPECIFIED Status: Acute - Plan cont current plan of care, plan discussed w/ family, continue antibiotics, PT/OT , vp digital marketing social media and crm * pt's daughter wants PT and then she will decide about snu placement * medication reviewed as below * symptomatic treatment * will change to PO cipro on discharge. Review of Systems - Review of Systems ENT: negative: Ear Pain, Ear Discharge, Nose Pain, Nose Discharge, Nose Congestion, Mouth Pain, Mouth Swelling, Throat Pain, Throat Swelling, Other Respiratory: negative: Cough, Dry, Shortness of Breath, Hemoptysis, SOB with Excertion, Pleuritic Pain, Sputum, Wheezing Cardiovascular: negative: chest pain, palpitations, orthopnea, paroxysmal nocturnal dyspnea, edema, light headedness, other Gastrointestinal: negative: Nausea, Vomiting, Abdominal Pain, Diarrhea, Constipation, Melena, Hematochezia, Other Genitourinary: negative: Dysuria, Frequency, Incontinence, Hematuria, Retention , Other Musculoskeletal: negative: Neck Pain, Shoulder Pain, Arm Pain, Back Pain, Hand Pain, Leg Pain, Foot Pain, Other - Medications/Allergies Allergies/Adverse Reactions: Allergies Allergy/AdvReac Type Severity Reaction Status Date / Time Penicillins Allergy Severe Anaphylaxis Verified 02/26/19 17:30 Medications: Current Medications Acetaminophen (Tylenol) 650 mg PO Q4H PRN PRN Reason: Headache/Fever/Mild Pain (1-3) Last Admin: 02/28/19 14:21 Dose: 650 mg Hydrocodone Bitart/Acetaminophen ([place] 5/325) 1 tab PO Q4H PRN PRN Reason: Moderate Pain (4-6) Last Admin: 03/01/19 22:16 Dose: 1 tab Albuterol Sulfate (Proventil Hfa) 1 puff INH QID-[facility] Last Admin: 03/02/19 10:16 Dose: 1 puff Albuterol/Ipratropium (Duoneb) 3 ml NEB Q6H PRN PRN Reason: SOB &/or Wheezing Artificial Tears (Tears Naturale) 2 drop EA EYE PRN PRN PRN Reason: Dry Eyes Aspirin (Aspirin Chewable) 81 mg PO DAILY [facility] Last Admin: 03/02/19 08:06 Dose: 81 mg Atorvastatin Calcium (Lipitor) 40 mg PO HS [facility] Last Admin: 03/01/19 20:16 Dose: 40 mg Bisacodyl (Dulcolax) 10 mg [place] DAILYPRN PRN PRN Reason: Constipation Bisacodyl (Dulcolax) 10 mg PO HS [facility] Last Admin: 03/01/19 20:16 Dose: 10 mg Calcium Carbonate (Tums) 1,000 mg PO Q4H PRN PRN Reason: Heartburn or Indigestion Cholecalciferol (Vitamin D3) 5,000 units PO DAILY [facility] Last Admin: 03/02/19 08:05 Dose: 5,000 units Cyanocobalamin (Vitamin B-12) 1,000 mcg PO DAILY [facility] Last Admin: 03/02/19 08:06 Dose: 1,000 mcg Dextrose/Water (Dextrose 50%) 25 gm SLOW IVP PRN PRN PRN Reason: Hypoglycemia Donepezil HCl (Aricept) 10 mg PO HS [facility] Last Admin: 03/01/19 20:17 Dose: 10 mg Enoxaparin Sodium (Lovenox) 30 mg SC 0900 [facility] Last Admin: 03/02/19 08:07 Dose: 30 mg Ferrous Sulfate (Feosol) 325 mg PO QAM-[facility] Last Admin: 03/02/19 08:06 Dose: 325 mg Folic Acid (Folvite) 1 mg PO DAILY [facility] Last Admin: 03/02/19 08:04 Dose: 1 mg Glipizide (Glucotrol) 5 mg PO DAILY-[facility] Last Admin: 03/02/19 08:04 Dose: 5 mg Glucagon (Glucagon) 1 mg IM PRN PRN PRN Reason: Hypoglycemia Guaifenesin (Robitussin Sf) 200 mg PO Q4H PRN PRN Reason: Cough Hydralazine HCl (Apresoline) 10 mg SLOW IVP Q4H PRN PRN Reason: SBP > 180 and HR < 70 Ceftriaxone Sodium 1 gm/ (Sodium Chloride) 100 mls @ 200 mls/hr IVPB Q24HR [facility] Last Admin: 03/01/19 11:38 Dose: 100 mls Dextrose/Water (D5w) 1,000 mls @ 0 mls/hr IV .Q0M PRN PRN Reason: Hypoglycemia Levofloxacin 500 mg/ Device 100 mls @ 100 mls/hr IVPB Q24HR [facility] Last Admin: 03/01/19 11:23 Dose: 100 mls Insulin Human Lispro (Humalog) 0 units [place] .MODERATE SLIDING SC PRN PRN Reason: Moderate Correctional Scale Last Admin: 03/01/19 11:32 Dose: 4 unit Insulin Human Lispro (Humalog) 0 units [place] .BEDTIME SLIDING SC PRN PRN Reason: Bedtime Correctional Scale Levothyroxine Sodium (Synthroid) 125 mcg PO 0600 [facility] Last Admin: 03/02/19 05:47 Dose: 125 mcg Loperamide HCl (Imodium) 2 mg PO PRN PRN PRN Reason: Diarrhea/Loose Stools Loratadine (Claritin) 10 mg PO DAILYPRN PRN PRN Reason: Sinus Symptoms Melatonin (Melatonin) 10 mg PO HS PRN PRN Reason: Insomnia Last Admin: 02/28/19 23:03 Dose: 10 mg Ondansetron HCl (Zofran Odt) 4 mg PO Q6H PRN PRN Reason: Nausea/Vomiting Ondansetron HCl (Zofran) 4 mg IVP Q6H PRN PRN Reason: Nausea/Vomiting Last Admin: 02/27/19 20:46 Dose: 4 mg Oxybutynin Chloride (Ditropan) 5 mg PO BID [facility] Last Admin: 03/02/19 08:04 Dose: 5 mg Pantoprazole Sodium (Protonix) 40 mg PO BID [facility] Last Admin: 03/02/19 08:04 Dose: 40 mg Saccharomyces Boulardii (Florastor) 250 mg PO DAILY [facility] Last Admin: 03/02/19 08:03 Dose: 250 mg Senna/Docusate Sodium (Senokot S) 2 tab PO BID PRN PRN Reason: Constipation Sodium Chloride ([place] Nasal [place] 0.65%) 0 ml EA NARE QIDPRN PRN PRN Reason: Nasal Congestion Throat Lozenges (Cepastat Lozenges) 1 pipo PO Q2H PRN PRN Reason: Sore Throat
[2019-03-02] MEDS: cefTRIAXone\\ROCEPHIN 1 GM in Sodium Chloride 0.9% 100 ML IVPB SCH (11:33)
--- NOTE | 2019-03-02 12:22 | DIS ---
DATE OF ADMISSION: 02/26/2019 DATE OF DISCHARGE: 03/02/2019 DISCHARGE DISPOSITION: Home with home health. PRIMARY DISCHARGE DIAGNOSES: Sepsis with acute organ dysfunction; lactic acidosis; acute encephalopathy, resolved; bacteremia due to Escherichia coli; urinary tract infection due to Escherichia coli. SECONDARY DISCHARGE DIAGNOSES: Rheumatoid arthritis, obesity with body mass index 34, chronic low back pain, hypothyroidism, hypertension, dyslipidemia, diabetes type 2, senile dementia, chronic kidney disease stage 3, coronary artery disease, normocytic normochromic anemia. PRIMARY PROCEDURE/OPERATION: None. RADIOLOGICAL INVESTIGATION: Chest x-ray. SIGNIFICANT LABORATORY DATA: Hemoglobin 9.0 creatinine 1.25. Urinalysis suggestive of UTI. Blood culture and urine culture grew E coli. Influenza negative. DISCHARGE MEDICATION: 1. Cipro 500 mg p.o. b.i.d. for 10 days. 2. Florastor 250 mg p.o. daily for 10 days. 3. Ventolin inhaler 2 puffs q.6 hourly p.r.n. 4. MiraLAX 17 g p.o. daily. 5. Protonix 40 mg p.o. b.i.d. 6. Ditropan 5 mg b.i.d. 7. Metformin 1000 mg b.i.d. 8. Melatonin 10 mg p.o. at bedtime. 9. Imodium 2 mg p.o. at bedtime. 10. Lisinopril 5 mg p.o. daily. 11. Synthroid 125 mcg p.o. daily. 12. [place] 10 one tablet t.i.d. p.r.n. 13. Glipizide 10 mg daily. 14. Folic acid 1 mg p.o. daily. 15. Aricept 10 mg p.o. at bedtime. 16. Vitamin B12 1000 mcg p.o. daily. 17. Vitamin D3 5000 units p.o. daily. 18. Coreg 12.5 mg b.i.d. 19. Tums 500 mg q.6 hourly p.r.n. 20. Lipitor 40 mg p.o. at bedtime. 21. Aspirin 81 mg p.o. daily. 22. Ventolin nebulization q.6 hourly p.r.n. 23. Tylenol 650 mg q.6 hourly p.r.n. 24. Tramadol 50 mg q.8 hourly p.r.n. 25. Zofran 4 mg q.4 hourly p.r.n. CONTRAINDICATION: None. CODE STATUS: DNR. INPATIENT LUBRICATING MACHINE TENDER: None. ALLERGIES: PENICILLIN. DISCHARGE PLAN: Posthospital, the patient was discharged home with home health. Subsequently, the patient will follow up with primary care physician. HOSPITAL COURSE: An 83-year-old female, who was admitted by me. Please see my HPI for further details. The patient was having encephalopathy. She was having fever. She was meeting sepsis criteria. Her source of infection was urinary tract. Her urine culture grew E. coli as well as blood culture grew E. coli. Initially, we started with meropenem and subsequently based on culture result, we changed to Rocephin and Levaquin. On discharge, we prescribed ciprofloxacin. This patient was up to her baseline status. The family member okayed with going home with home health. I sent all prescription to her pharmacy. The patient is medically stable for discharge. The patient is seen and examined. Please see my progress note from today for further detail. Job ID: [id number]
[2019-03-02] MEDS: HumaLOG 300 UNITS/3 ML VIAL SC PRN (12:42)
[2019-03-02] MEDS: HYDROcodone/Acetaminophen 5/325 mg Tablet PO PRN (15:11)
[2019-03-02 15:14] VITALS: BP 112/77; TEMP 97.8
== END 2019-03-02 15:26 | disposition home health service (06) | DRG 871 ==
LOC: ERS 11:04 → 2NO 16:41 → T4-A 02-28 15:50
PROVIDERS: ADMIT Internal Medicine; ATTEND Internal Medicine
DX: A41.51 Sepsis due to Escherichia coli [E. coli] (principal); G93.41 Metabolic encephalopathy; E87.2 Acidosis; N18.4 Chronic kidney disease, stage 4 (severe); Z66 Do not resuscitate; R65.20 Severe sepsis without septic shock; E03.9 Hypothyroidism, unspecified; K21.9 Gastro-esophageal reflux disease without esophagitis; M06.9 Rheumatoid arthritis, unspecified; I49.5 Sick sinus syndrome; I25.10 Atherosclerotic heart disease of native coronary artery without angina pectoris; G30.9 Alzheimer's disease, unspecified; F02.80 Dementia in other diseases classified elsewhere, unspecified severity, without behavioral disturbance, psychotic disturbance, mood disturbance, and anxiety; R29.6 Repeated falls; E11.22 Type 2 diabetes mellitus with diabetic chronic kidney disease; D63.1 Anemia in chronic kidney disease; M51.36 Other intervertebral disc degeneration, lumbar region; E66.9 Obesity, unspecified; E78.5 Hyperlipidemia, unspecified; Z96.653 Presence of artificial knee joint, bilateral; G89.29 Other chronic pain; M54.9 Dorsalgia, unspecified; I12.9 Hypertensive chronic kidney disease with stage 1 through stage 4 chronic kidney disease, or unspecified chronic kidney disease; Z99.3 Dependence on wheelchair; Z88.0 Allergy status to penicillin; Z88.1 Allergy status to other antibiotic agents; Z79.899 Other long term (current) drug therapy; Z79.82 Long term (current) use of aspirin; Z68.34 Body mass index [BMI] 34.0-34.9, adult; Z79.84 Long term (current) use of oral hypoglycemic drugs
CPT/HCPCS: 36415; 36416; 71045; 80048; 80053; 81003; 81015; 83605; 85025; 87040; 87077; 87086; 87149; 87186; 87804; 93005; A4353; J0360; J0696; J1650; J1956; J2405; J3370; J3490; J7620

== ENCOUNTER 2019-03-30 13:33 | Outpatient (CLI) | payer MEDICARE ==
--- NOTE | 2019-03-30 14:22 | RAD ---
RADIOGRAPH CHEST 2 VIEWS: Date: 03/30/19 Time: 1:56 p.m. HISTORY: 83-year-old female with dyspnea. COMPARISON: One view study of 02/26/19. FINDINGS: Chronic interstitial pulmonary densities bilaterally, relatively mild in the upper lung zone, and mod erate to severe in the bilateral lower lung zones. Cardiac size at upper limits of normal. Atheroscle rotic calcification and ectasia of thoracic aorta. Left subclavian dual lead pacemaker. No new consol idation, pneumothorax or pleural effusion. No interval change. IMPRESSION: 1. Chronic interstitial lung disease. 2. Pacemaker. 3. Atherosclerosis and ectasia of thoracic aorta. 4. No acute findings. VALERIE [] POS: MISTY
== END 2019-03-30 13:34 | disposition home or self-care (01) ==
LOC: RAD 13:33
PROVIDERS: ATTEND Internal Medicine Pulmonary Disease
DX: R06.00 Dyspnea, unspecified (principal); I70.0 Atherosclerosis of aorta; I77.810 Thoracic aortic ectasia; J84.9 Interstitial pulmonary disease, unspecified; Z95.0 Presence of cardiac pacemaker
CPT/HCPCS: 71046